=== PATIENT | female | born 1965 | race American Indian/Alaskan Native ===

== ENCOUNTER 2017-03-23 16:40 | Emergency (ER) | payer MEDICAID ==
[2017-03-23 16:43] VITALS: BMI 32.5
[2017-03-23 16:50] VITALS: RESP 18; TEMP 98.2
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
[2017-03-23 18:22] VITALS: BP 125/79; PULSE 67; O2SAT 98
--- NOTE | 2017-03-23 18:25 | US ---
PROCEDURE: Left lower extremity venous US HISTORY: Leg pain and swelling. Evaluate for DVT. PHYSICIAN(S): Homero Root MD. TECHNIQUE: Duplex sonography and color-flow Doppler with graded compression were used to evaluate the deep venous system of the left lower extremity. The exam is somewhat limited by body habitus and edema. FINDINGS: The visualized deep venous system of the left lower extremity is sonographically normal and compressible. Normal wave forms and augmentation are seen. There is no sonographic evidence for deep venous thrombosis in the visualized segments of the left lower extremity. IMPRESSION: 1. No sonographic evidence for deep venous thrombosis in the visualized segments of the left lower extremity.
== END 2017-03-23 18:47 | disposition home or self-care (01) ==
LOC: ED 16:40
DX: M54.42 Lumbago with sciatica, left side (principal); G89.29 Other chronic pain; I10 Essential (primary) hypertension; F17.210 Nicotine dependence, cigarettes, uncomplicated

== ENCOUNTER 2019-02-22 13:36 | Inpatient (IN) | payer MEDICAID ==
[2019-02-22 13:41] VITALS: BMI 35.2
[2019-02-22] MEDS ORDERED: Morphine 4 mg/ml ISec IVP STA (14:21)
[2019-02-22 14:26] LABS: BASO # 0.02 K/mm3 (0.0-2.0); BASO % 0.2 % (0.0-3.0); EOS # 0.3 (0.0-0.7); EOS % 2.8 % (1.5-5.0); HEMOGLOBIN 13.9 g/dL (12.0-16.0); LYMPH # 2.3 (1.2-3.4); LYMPH % 22.4 % (22.0-35.0); MEAN CELL VOLUME 87.6 fl (80.0-105.0); MEAN CORPUSCULAR HEMOGLOBIN 28.3 pg (25.0-35.0); MEAN CORPUSCULAR HGB CONC 32.3 g/dl (31.0-37.0); MONO % 10.3 % (1.0-6.0); PLATELET COUNT 115 10^3/uL (120.0-450.0); RBC 4.91 10^6/uL (3.5-6.1); RED CELL DISTRIBUTION WIDTH 13.6 % (11.5-14.5); WHITE BLOOD COUNT 10.1 10^3/uL (4.5-11.0)
--- NOTE | 2019-02-22 14:30 | ED PDOC ---
Arrival/HPI - General Chief Complaint: High Blood Pressure Historian: Patient - History of Present Illness Narrative History of Present Illness (Text): 02/22/19 14:25 Patient presents to the Emergency Department stating that she has been having weakness, "difficulty lifting my head up" over the past 2-3 days. She states that at approximately 1230 am this morning she was "feeling like I couldn't lift my head up" and checked her blood pressure at the time and noted that "it was over 200". She also states that AT 1230AM THIS MORNING she felt like she couldn't move or lift up her right leg or right arm. She also states that she had "a bump in my right nose" "for the past few days". She states that this has been hurting and she had noticed some swelling to her face yesterday. Reports some difficulty speaking "since last night". She states she took a clonidine earlier in the morning. Denies fever. Denies trauma. Denies neck pain. Reports chornic back pain. Past Medical History - Provider Review Nursing Documentation Reviewed: Yes - Infectious Disease Hx of Infectious Diseases: None - Cardiac Hx Hypertension: Yes - Pulmonary Hx Asthma: Yes - Neurological HX Cerebrovascular Accident: Yes (rt side weakness) - Psychiatric Hx Anxiety: Yes Hx Bipolar Disorder: Yes Hx Schizophrenia: Yes Hx Substance Use: Yes Other/Comment: insomnia - Surgical History Hx Cholecystectomy: Yes - Anesthesia Hx Anesthesia: Yes Hx Anesthesia Reactions: No Family/Social History - Physician Review Nursing Documentation Reviewed: Yes Family/Social History: Unknown Family HX Smoking Status: Heavy Smoker > 10 Cigarettes Daily Hx Alcohol Use: Yes Hx Substance Use: Yes Allergies/Home Meds Allergies/Adverse Reactions: Allergies No Known Allergies Allergy (Verified 03/23/17 16:43) Home Medications: Home Meds Medication Instructions Recorded Confirmed Alprazolam [Xanax] 2 mg PO DAILY 03/23/17 02/22/19 Clonidine HCl [Catapres] 0.3 mg PO DAILY 03/23/17 02/22/19 Review of Systems - Physician Review All systems were reviewed & negative as marked: Yes - Review of Systems Constitutional: Fatigue. absent: Weight Change, Fevers Eyes: Eye Pain, Other (pain with eye movements) ENT: Sinus Congestion, Other (right nasal pain) Respiratory: absent: SOB Cardiovascular: Palpitations. absent: Chest Pain Gastrointestinal: absent: Abdominal Pain, Nausea, Vomiting Genitourinary Female: absent: Dysuria, Frequency Musculoskeletal: Back Pain. absent: Neck Pain Skin: absent: Rash Neurological: Headache, Dizziness, Focal Weakness, Gait Changes, Speech Changes Endocrine: absent: Polyuria Hemo/Lymphatic: absent: Easy Bleeding Psychiatric: Anxiety. absent: Suicidal Ideation Physical Exam - Physical Exam Narrative Physical Exam (Text): 02/22/19 14:31 Head: Atraumatic. Normocephalic. Eyes: PERRL. EOMI. Conjunctivae are not pale. Visual acuity and coronado intact. No pain with eye movements, there is no proptosis. There is infraorbital edema. ENT: Mucous membranes are moist and intact. Oropharynx is clear and symmetric. No angioedema. There is inflammatory changes noted to right nares, no purulence. No bloody or purulent discharge. TMs clear. Neck: Supple. Full ROM. No JVD. No lymphadenopathy. No auscultated bruits. Cardiovascular: Regular rate. Regular rhythm. No murmur. Femoral pulses and distal foot pulses symmetric and intact. Pulmonary/Chest: No evidence of respiratory distress. Clear to auscultation bilaterally. No wheezing, rales or rhonchi. Abdominal: Soft and non-distended. There is epigastric tenderness. No rebound, guarding, or rigidity. No organomegaly. No pulsatile masses. Back: No CVA tenderness. Lower lumbar paraspinal tenderness. Extremities: No edema. No cyanosis. No clubbing. No calf tenderness. NO knee or hip pain with passive range of motion. No pain with straight leg testing. Skin: Skin is warm and dry. No petechiae. No purpura. Neurological: Alert, awake, and oriented to person, place, time, and situation. Facial asymmetry noted with soft tissue swelling noted to right maxillary, infraorbital region. Cranial nerves intact. Patient with normal finger to nose with left upper extremity. No pronator drift noted in left upper or lower ex tremity. Patient with weakness noted to RIGHT upper and lower extremity initially unable to lift off of bed on her own. Psychiatric: Anxious. 02/22/19 15:39 Vital Signs Reviewed: Yes Vital Signs Temp Pulse Resp BP Pulse Ox 02/22/19 13:36 97.9 F 65 18 248/143 H 97 Temperature: Afebrile Blood Pressure: Hypertensive Appearance: Positive for: Ill-Appearing Pain Distress: Moderate Mental Status: Positive for: Alert and Oriented X 3 Finger Stick Blood Glucose: 120 Medical Decision Making ED Course and Treatment: 02/22/19 14:32 Impression: Patient presents with right sided weakness in arm and leg she states she noted at 1230 am this morning. Also complains of right facial swelling, right "nose bump". Denies neck pain. Denies chest pain or shortness of breath. Initially denies abdominal pain. Reports lower back pain which she initially states is from "slipped disk in my back". States she has been unable to move right side very well since approximately midnight. She had informed nurse that she had difficulty moving left leg earlier in the day. Progress Notes: Patient on initial evaluation states she has had her symptoms for over 12 hours. She states she has history of hypertension and she takes clonidine. Denies headache and denies "worst headache of life". No fever. No meningeal signs. As patient has right sided weakness noted on arm and leg on initial exam, CODE STROKE called and initial exam and history reviewed with neurologist Dr. Marks. On re-exam upon return from CT, patient's blood pressure slightly improved but still elevated. She is complaining of sudden onset of severe upper abdominal pain and back pain. She did not have this on arrival. On re-exam she is tender on palpation of abdomen, no pulsations noted, distal pulses intact. She denies chest pain or pleuritic pain. IV Morphine given. On re-evaluation she is noted to be moving her right upper and lower extremity better than initial presentation. Ddx cva, neuro disease, dissection, gastris, biliary colic, hypertensive emergency. CT angio ordered. Patient is not a TPA candidate given history of uncontrolled hypertension as well as symptoms over [address] pending. Pain improved on re-evaluation. No facial abscess noted on initial CT. No acute bleed noted on initial CT. 02/22/19 16:56 Head/Neck CTA IMPRESSION: Normal CT Angiography of the Brain. Orbit CT IMPRESSION: No acute finding. Head CT IMPRESSION: Left greater than right cerebellar hypodense regions likely related to encephalomalacia. Additional regions of moderate nonspecific white matter changes. Chest X-Ray IMPRESSION: No focal consolidation. Requested ICU consultation given patient's elevated blood pressure and history of weakness noted SINCE YESTERDAY. I do appreciate weakness still on exam. There is also facial swelling I feel due to superficial infection although currently no pain with eye movements, afebrile, unlikely septic on this initial evaluation. Neck is supple with no meningeal signs. Blood pressure improved in ED after administration of blood pressure medication. Abdomen on re-exam is nontender patient requesting something to eat. Care turned over to ICU team, I discussed case with Dr. Marks, neurology who has evaluated patient in the ED. No respiratory distress noted in the ED. - Critical Care Critical Care Minutes: 30 minutes - RAD Interpretation Radiology Orders: 02/22/19 14:18 HEAD W/O (CODE STROKE) [CT] Stat CHEST PORTABLE [RAD] Stat 02/22/19 14:20 ORBITS/ FACIALS W/O CONTRAST [CT] Stat - Medication Orders Current Medication Orders: Sodium Chloride (Sodium Chloride 0.9%) 1,000 mls @ 100 mls/hr IV .Q10H JACKELYN Discontinued Medications Morphine Sulfate (Morphine) 4 mg IVP STAT STA Stop: 02/22/19 14:22 NIHSS Scale ([place]) Time Performed: 14:00 - How Severe is the Stoke Baseline Level of Consciousness: 0=Alert LOC to Questions: 0=Both comments correct LOC to commands: 0=Obeys both correctly Best Gaze: 0=Normal Visual: 0=No visual loss Facial: 0=Normal Motor Arm - Left: 0=No drift Motor Arm - Right: 2=Falls before 10 sec Motor Leg - Left: 0=No drift Motor Leg - Right: 3=No effort against gravity (falls immediately) Limb Ataxia: 0=Absent Sensory: 1=Mild to moderate loss Best Language: 0=No aphasia Dysarthia: 0=Normal articulation Extinction & Inattention (Neglect): 0=Normal, no object Score: 6 Risk Level: Mod Stroke Risk rTPA Inclusion/Exclusion - Refusal of Treatment Patient Refused Treatment: Yes - Exclusion Criteria for Altepase Current Severe Uncontrolled Hypertension: Yes - Scribe Statement The provider has reviewed the documentation as recorded by the [place] Provider Scribe Attestation: All medical record entries made by the Scribe were at my direction and personally dictated by me. I have reviewed the chart and agree that the record accurately reflects my personal performance of the history, physical exam, medical decision making, and the department course for this patient. I have also personally directed, reviewed, and agree with the discharge instructions and disposition. Disposition/Present on Arrival - Present on Arrival Any Indicators Present on Arrival: No History of DVT/PE: No History of Uncontrolled Diabetes: No Urinary Catheter: No History of Decub. Ulcer: No History Surgical Site Infection Following: None - Disposition Have Diagnosis and Disposition been Completed?: Yes Diagnosis: Malignant hypertension, Right facial swelling, Right sided weakness, Abdominal pain Disposition: HOSPITALIZED Disposition Time: 15:30 Patient Plan: Admission, ICU Patient Problems: Current Active Problems Problem Status Onset Abdominal pain Acute Cellulitis of sidewall of nose Acute DNS (deviated nasal septum) Acute Ischemic stroke Acute Malignant hypertension Acute Right facial swelling Acute Right sided weakness Acute Condition: CRITICAL
[2019-02-22 14:32] LABS: ALB/GLOB RATIO 1.1 (1.1-1.8); ALBUMIN 3.8 g/dL (3.0-4.8); ALT/SGPT 17 U/L (7-56); AST/SGOT 22 U/L (14-36); BLOOD UREA NITROGEN 10 mg/dL (7-21); CALCIUM 8.8 mg/dL (8.4-10.5); GFR NON-AFRICAN AMERICAN > 60; HDL CHOLESTEROL 51 mg/dL (29-60); INR 1.13; PARTIAL THROMBOPLASTIN TIME 32.2 Seconds (26.9-38.3); PROTHROMBIN TIME 12.5 SECONDS (9.4-12.5)
[2019-02-22 14:45] LABS: LDL CHOLESTEROL 106 mg/dL (0-129)
[2019-02-22 14:48] LABS: TROPONIN I < 0.01 ng/mL
[2019-02-22] MEDS: Sodium Chloride 0.9% 1,000 ML IV SCH (14:48)
--- NOTE | 2019-02-22 14:56 | CT ---
Date of service: 02/22/2019 PROCEDURE: CT HEAD WITHOUT CONTRAST. HISTORY: Code Stroke COMPARISON: None available. TECHNIQUE: Axial computed tomography images were obtained through the head/brain without intravenous contrast. Radiation dose: Total exam DLP = 957.91 mGy-cm. This CT exam was performed using one or more of the following dose reduction techniques: Automated exposure control, adjustment of the mA and/or kV according to patient size, and/or use of iterative reconstruction technique. FINDINGS: Streak artifact obscures evaluation of the skull base. HEMORRHAGE: No intracranial hemorrhage. BRAIN: Diffuse atrophy with prominence of the ventricles and sulci noted. No mass effect or edema. Intracranial atherosclerosis. Left greater than right cerebellar hypodense regions likely related to encephalomalacia. 11 mm hyperdense focus is noted within the medial cerebellum (series 4, image 11) of unclear etiology; malignant neoplasm must be excluded. Scattered periventricular and subcortical white matter hypodensities, which are nonspecific, but often seen with chronic microvascular ischemic disease. 1.6 x 1.1 cm hypodense fluid density structure noted within the anterior corpus, possibly cyst. Please note that MRI with diffusion imaging is more sensitive in the detection of acute ischemic event. VENTRICLES: No hydrocephalus. CALVARIUM: Unremarkable. PARANASAL SINUSES: Unremarkable as visualized. No significant inflammatory changes. MASTOID AIR CELLS: Unremarkable as visualized. No inflammatory changes. OTHER FINDINGS: Subtle inflammatory changes noted within the right nasal and adjacent soft tissues, nonspecific. No discrete fluid collection or drainable abscess evident. IMPRESSION: Left greater than right cerebellar hypodense regions likely related to encephalomalacia. Additional regions of moderate nonspecific white matter changes. 11 mm hyperdense focus is noted within the medial cerebellum of unclear etiology; malignant neoplasm must be excluded. MRI without and with IV contrast recommended for further evaluation. 1.6 x 1.1 cm hypodense fluid density structure noted within the anterior corpus, possibly cyst. Subtle inflammatory changes noted within the right nasal and adjacent soft tissues, nonspecific. No discrete fluid collection or drainable abscess evident. Findings discussed with Dr. Akbar on 02/22/19 at 241 pm.
[2019-02-22] MEDS ORDERED: Morphine 2 mg/ml ISec IVP STA (15:04)
[2019-02-22] MEDS ORDERED: Iohexol 350 MG/100 ML VIAL ONE (15:05)
[2019-02-22] MEDS ORDERED: Alum-Mag Hydrox-Simethicone Susp (30 mL) PO STA (15:14)
[2019-02-22] MEDS ORDERED: Labetalol 5mg/ml (4ml) IVP ONE (15:54)
--- NOTE | 2019-02-22 15:58 | RAD ---
HISTORY: Code Stroke COMPARISON: None available. TECHNIQUE: Chest, one view. FINDINGS: LUNGS: No focal consolidation. Please note that chest x-ray has limited sensitivity for the detection of pulmonary masses. PLEURA: No significant pleural effusion identified. No definite pneumothorax . CARDIOVASCULAR: Heart size appears within normal limits. Ectatic aorta. Faint atherosclerotic calcifications present. OSSEOUS STRUCTURES: No acute osseous abnormality identified. VISUALIZED UPPER ABDOMEN: Unremarkable. OTHER FINDINGS: None. IMPRESSION: No focal consolidation.
--- NOTE | 2019-02-22 16:03 | CP.PCM.CON ---
History of Present Illness - History of Present Illness History of Present Illness: Neurology Consultation Note: Consult requested by Dr. Akbar Mrs. Quiroz is a 53-year-old woman with a past medical history of HTN, who states that she had been having some difficulty with body weakness and trouble with lifting her head for the past several days. She began feeling right side weakness last night at around 12:30 AM. She presented to the ED today with right side weakness and there was some evidence of a facial droop, although there was concern for an abscess as well over the nose and facial region. She had a non-contrast CT scan of the head, which did not show any acute findings. Initial NIHSS was calculated at a 6. She was not a candidate for IV tPA due to being outside the 4.5 hour time window. CTA of the head/neck was ordered stat to evaluate for LVO. The patient then began complaining of severe chest pain that radiated to the back. This prompted further studies to evaluate for possible aortic dissection. She went for further imaging. I reviewed the CTA and did not see any major arterial occlusion intracranially and the carotids appeared patent past the bifurcation. According to the ED evaluation, the patient had improving symptoms, but her BP was 240's/120's range. When I saw the patient, she said that she has had a previous stroke and the right side weakness is chronic, but that it has gotten worse since yesterday. Review of Systems - Constitutional Constitutional: As Per HPI - EENT Eyes: absent: As Per HPI, Blind Spots, Blurred Vision, Change in Vision, Decreased Night Vision, Diplopia, Discharge, Dry Eye, Exophthalmos, Floaters, Irritation, Itchy Eyes, Loss of Peripheral Vision, Pain, Photophobia, Requires Corrective Lenses, Sees Flashes, Spots in Vision, Tunnel Vision, Other Visual Disturbances, Loss of Vision, Other Ears: absent: As Per HPI, Decreased Hearing, Ear Discharge, Ear Pain, Tinnitus, Abnormal Hearing, Disequilibrium, Dizziness, Other Nose/Mouth/Throat: As Per HPI - Cardiovascular Cardiovascular: absent: As Per HPI, Acrocyanosis, Chest Pain, Chest Pain at Rest, Chest Pain with Activity, Claudication, Diaphoresis, Dyspnea, Dyspnea on Exertion, Edema, Irregular Heart Rhythm, Pain Radiating to Arm/Neck/Jaw, Leg Edema, Leg Ulcers, Lightheadedness, Orthopnea, Palpitations, Paroxysmal Nocturnal Dyspnea, Pedal Edema, Radiating Pain, Rapid Heart Rate, Slow Heart Rate, Syncope, Other - Respiratory Respiratory: absent: As Per HPI, Cough, Dyspnea, Hemoptysis, Dyspnea on Exertion, Wheezing, Snoring, Stridor, Pain on Inspiration, Chest Congestion, Excessive Mucous Production, Change in Mucous Color, Pain with Coughing, Other - Musculoskeletal Musculoskeletal: absent: As Per HPI, Abnormal Gait, Arthralgias, Atrophy, Back Pain, Deformity, Joint Swelling, Limited Range of Motion, Loss of Height, Muscle Cramps, Muscle Weakness, Myalgias, Neck Pain, Numbness, Radiating Pain into Limb, Stiffness, Tingling, Other - Integumentary Integumentary: absent: As Per HPI, Acne, Alopecia, Bleeding Lesions, Change in Hair, Change in Nails, Change in Pigmentation, Changing Lesions, Dry Skin, Erythema, Furuncle, Hirsutism, Lesions, New Lesions, Non-Healing Lesions, Photosensitivity, Pruritus, Rash, Skin Pain, Skin Ulcer, Sores, Striae, Swelling, Unusual Bruising, Wounds, Jaundice, Other - Neurological Neurological: As Per HPI - Endocrine Endocrine: absent: As Per HPI, Change in Body Appearance, Change in Libido, Cold Intolorance, Deepening of Voice, Excessive Sweating, Fatigue, Flushing, Heat Intolorance, Increase in Ring/Shoe/Hat Size, Palpitations, Polydipsia, Polyphagia, Polyuria, Other - Hematologic/Lymphatic Hematologic: absent: As Per HPI, Easy Bleeding, Easy Bruising, Lymphadenopathy, Other Past Patient History - Infectious Disease Hx of Infectious Diseases: None - Past Social History Smoking Status: Heavy Smoker > 10 Cigarettes Daily - CARDIAC Hx Hypertension: Yes - PULMONARY Hx Asthma: Yes - NEUROLOGICAL HX Cerebrovascular Accident: Yes (rt side weakness) - PSYCHIATRIC Hx Anxiety: Yes Hx Bipolar Disorder: Yes Hx Schizophrenia: Yes Hx Substance Use: Yes Other/Comment: insomnia - SURGICAL HISTORY Hx Cholecystectomy: Yes - ANESTHESIA Hx Anesthesia: Yes Hx Anesthesia Reactions: No Meds Allergies/Adverse Reactions: Allergies Allergy/AdvReac Type Severity Reaction Status Date / Time No Known Allergies Allergy Verified 03/23/17 16:43 - Medications Medications: Current Medications Sodium Chloride (Sodium Chloride 0.9%) 1,000 mls @ 100 mls/hr IV .Q10H JACKELYN Last Admin: 02/22/19 14:48 Dose: 100 mls/hr Physical Exam - Constitutional Appears: No Acute Distress - Head Exam Head Exam: ATRAUMATIC, NORMAL INSPECTION, NORMOCEPHALIC - Eye Exam Eye Exam: EOMI, Normal appearance, PERRL Pupil Exam: NORMAL ACCOMODATION, PERRL - ENT Exam ENT Exam: Mucous Membranes Moist, Normal Exam - Neck Exam Neck exam: Positive for: Normal Inspection - Respiratory Exam Respiratory Exam: Clear to Auscultation Bilateral, NORMAL BREATHING PATTERN - Cardiovascular Exam Cardiovascular Exam: REGULAR RHYTHM, +S1, +S2 - GI/Abdominal Exam GI & Abdominal Exam: Normal Bowel Sounds, Soft. absent: Tenderness - Extremities Exam Extremities exam: Positive for: normal inspection - Back Exam Back exam: NORMAL INSPECTION - Neurological Exam Neurological exam: Abnormal Gait, Alert, CN II-XII Intact, Oriented x3, Reflexes Normal Additional comments: Right side hemiplegia and hemianesthesia. No facial droop noted. Speech is fluent, not dysarthric. Visual coronado are intact. - Psychiatric Exam Psychiatric exam: Normal Affect, Normal Mood - Skin Skin Exam: Dry, Intact, Normal Color, Warm Results - Vital Signs Recent Vital Signs: Last Vital Signs Temp 97.9 F 02/22/19 13:36 Pulse 87 02/22/19 15:01 Resp 20 02/22/19 15:01 BP 214/92 H 02/22/19 15:01 Pulse Ox 94 L 02/22/19 15:01 - Labs Result Diagrams: 02/22/19 14:00 02/22/19 14:00 Labs: Laboratory Results - last 24 hr 02/22/19 02/22/19 02/22/19 14:00 14:00 14:00 WBC 10.1 RBC 4.91 Hgb 13.9 Hct 43.0 MCV 87.6 MCH 28.3 MCHC 32.3 RDW 13.6 Plt Count 115 L Neut % (Auto) 64.3 Lymph % (Auto) 22.4 [place] % (Auto) 10.3 H Eos % (Auto) 2.8 Baso % (Auto) 0.2 Lymph # (Auto) 2.3 [place] # (Auto) 1.0 H Eos # (Auto) 0.3 Baso # (Auto) 0.02 Absolute Neuts (auto) 6.52 H PT 12.5 INR 1.13 APTT 32.2 Sodium 139 Potassium 3.7 Chloride 103 Carbon Dioxide 32 Anion Gap 8 L BUN 10 Creatinine 0.9 Est GFR ( Amer) > 60 Est GFR (Non-Af Amer) > 60 Random Glucose 96 Calcium 8.8 Total Bilirubin 0.8 AST 22 ALT 17 Alkaline Phosphatase 64 Lactate Dehydrogenase 490 Total Creatine Kinase 110 Troponin I < 0.01 Total Protein 7.4 Albumin 3.8 Globulin 3.6 Albumin/Globulin Ratio 1.1 Triglycerides 57 Cholesterol 189 LDL Cholesterol Direct 106 HDL Cholesterol 51 BBK History Checked 02/22/19 15:00 WBC RBC Hgb Hct MCV MCH MCHC RDW Plt Count Neut % (Auto) Lymph % (Auto) [place] % (Auto) Eos % (Auto) Baso % (Auto) Lymph # (Auto) [place] # (Auto) Eos # (Auto) Baso # (Auto) Absolute Neuts (auto) PT INR APTT Sodium Potassium Chloride Carbon Dioxide Anion Gap BUN Creatinine Est GFR ( Amer) Est GFR (Non-Af Amer) Random Glucose Calcium Total Bilirubin AST ALT Alkaline Phosphatase Lactate Dehydrogenase Total Creatine Kinase Troponin I Total Protein Albumin Globulin Albumin/Globulin Ratio Triglycerides Cholesterol LDL Cholesterol Direct HDL Cholesterol BBK History Checked No verified bt Assessment & Plan (1) Ischemic stroke Assessment and Plan: According to the patient, she had a previous stroke that left her with right side weakness. The CT scan does not demonstrate any area of encephalomalacia corresponding to a previous stroke that would result in right side weakness. However, a new infarct is possible. It is also possible that she has hypertensive encephalopathy considering the initial BP of 258/120 mm hg. I recommend the followin. Telemetry (consider ICU for BP management if needed) 2. MRI brain without contrast 3. Echocardiogram 4. Check HbA1c, Lipid panel, B12, folate, TSH, vitamin D levels 5. Give aspirin 81 mg daily 6. Give lipitor 40 mg daily 7. Fluids with NS at 100 mL/hr 8. Treat BP that is higher than 220/110 mm hg 9. PT/OT eval and treatment 10. Case management consult Thank you for this consultation. Status: Acute NIHSS Stroke Scale - Date/Time Evaluation Performed Date Performed: 02/22/19 Time Performed: 16:00 - How Severe is the Stoke Level of Consciousness: 0=Alert LOC to Questions: 0=Both comments correct LOC to commands: 0=Obeys both correctly Best Gaze: 0=Normal Visual: 0=No visual loss Facial: 0=Normal Motor Arm - Left: 0=No drift Motor Arm - Right: 4=No movement Motor Leg - Left: 0=No drift Motor Leg - Right: 4=No movement Limb Ataxia: 0=Absent Sensory: 1=Mild to moderate loss Best Language: 0=No aphasia Dysarthia: 0=Normal articulation Extinction & Inattention (Neglect): 0=Normal, no object Score: 9
--- NOTE | 2019-02-22 16:03 | CT ---
Date of service: 02/22/2019 PROCEDURE: CT MAXILLOFACIAL BONES WITHOUT CONTRAST HISTORY: right facial swelling COMPARISON: None available. TECHNIQUE: Contiguous axial CT images of the maxillofacial bones were obtained. Coronal and sagittal reformats were generated. Radiation dose: Total exam DLP = 754.8 mGy-cm. This CT exam was performed using one or more of the following dose reduction techniques: Automated exposure control, adjustment of the mA and/or kV according to patient size, and/or use of iterative reconstruction technique. FINDINGS: NASAL BONES: Unremarkable. ORBITS: Unremarkable. PARANASAL SINUSES/ MASTOIDS: Clear. MAXILLA: Unremarkable. MANDIBLE/ TEMPOROMANDIBULAR JOINTS: Unremarkable. SKULL BASE: Unremarkable. TEMPORAL BONES: Middle ears and mastoid grossly unremarkable. OTHER FINDINGS: None. IMPRESSION: No acute finding
--- NOTE | 2019-02-22 16:41 | CT ---
Date of service: 02/22/2019 PROCEDURE: CT Angiography of the neck with contrast HISTORY: right sided weakness COMPARISON: None. TECHNIQUE: Contiguous axial images of the neck were obtained from the level of the skull-base to the superior mediastinum in the arteriographic phase of enhancement. Coronal and sagittal reformats or also generated. IV contrast dose: 150 cc of Omni 350 Radiation dose: Total exam DLP = 1962.7 mGy-cm. This CT exam was performed using one or more of the following dose reduction techniques: Automated exposure control, adjustment of the mA and/or kV according to patient size, and/or use of iterative reconstruction technique. FINDINGS: RIGHT CAROTID ARTERIES: Common Carotid Artery: Normal. Carotid Bifurcation: Normal. Internal Carotid Artery:Calcified plaque with no stenosis External Carotid Artery (proximal branches): Normal. LEFT CAROTID ARTERIES: Common Carotid Artery: Normal. Carotid Bifurcation: Normal. Internal Carotid Artery:Calcified plaque with no stenosis External Carotid Artery (proximal branches): Normal. VERTEBRAL ARTERIES: Right Vertebral Artery: Normal. Left Vertebral Artery: Normal. OTHER FINDINGS: no aortic atherosclerotic calcification or mural plaque present. IMPRESSION: Normal CT Angiography of the neck. CT Angiography of the Brain. HISTORY: right sided weakness COMPARISON: None available. TECHNIQUE: CT angiography of the intracranial arteries was performed. Coronal and sagittal maximum intensity projection reformated images were generated. Radiation dose: Total exam DLP = 1962.7 mGy-cm. This CT exam was performed using one or more of the following dose reduction techniques: Automated exposure control, adjustment of the mA and/or kV according to patient size, and/or use of iterative reconstruction technique. FINDINGS: INTERNAL CEREBRAL ARTERIES: Unremarkable. The skull base, petrous, cavernous and supraclinoid segments are bilaterally widely patent. ANTERIOR CEREBRAL ARTERIES: Unremarkable. A1 and A2 segments are widely patent. Smaller distal branches unremarkable, as visualized. MIDDLE CEREBRAL ARTERIES: Unremarkable. M1 and M2 segments are widely patent. Perisylvian branches grossly symmetric. POSTERIOR CIRCULATION: Basilar Artery: Unremarkable. Distal Vertebral Arteries: Unremarkable. Posterior Cerebral Arteries: Unremarkable. Posterior Inferior Cerebellar Arteries: Unremarkable. ANEURYSM/ VASCULAR MALFORMATIONS: None. OTHER FINDINGS: None. IMPRESSION: Unremarkable CT Angiography of the Brain. CT Angiography Chest, Abdomen and Pelvis with intravenous contrast HISTORY: right sided weakness COMPARISON: None. TECHNIQUE: Contiguous axial images of the chest, abdomen and pelvis were obtained in the phase of aortic enhancement. Coronal and sagittal reformats were generated. IV dose administered: Total injection of 150 cc of Omni 350 Radiation dose: Total exam DLP = 1962.7 mGy-cm. This CT exam was performed using one or more of the following dose reduction techniques: Automated exposure control, adjustment of the mA and/or kV according to patient size, and/or use of iterative reconstruction technique. FINDINGS: CT ANGIOGRAPHY OF THE CHEST WITH & WITHOUT CONTRAST: AORTA (CHEST AND ABDOMEN): The thoracic and abdominal aorta are unremarkable, without aneurysm, dissection or rupture. The celiac axis, superior mesenteric artery, inferior mesenteric artery and the renal arteries are widely patent. The pelvic arteries are unremarkable. LUNGS: Clear. No nodule, mass or consolidation. MEDIASTINUM: Unremarkable. Normal caliber aorta and pulmonary arterial trunk. No aortic dissection. Normal size heart. LYMPH NODES: Unremarkable. PLEURA: Unremarkable. No pneumothorax. No pleural fluid. BONES: Unremarkable. OTHER FINDINGS: None. CT ANGIOGRAPHY OF THE ABDOMEN AND PELVIS WITH CONTRAST: LIVER: Unremarkable. No gross lesion or ductal dilatation. GALLBLADDER AND BILE DUCTS: Gallbladder removed. Common duct normal in caliber PANCREAS: Unremarkable. No gross lesion or ductal dilatation. SPLEEN: Unremarkable. ADRENALS: Unremarkable. No mass. KIDNEYS AND URETERS: Unremarkable. No hydronephrosis. No solid mass. VASCULATURE: Unremarkable. No aortic aneurysm. No aortic atherosclerotic calcification or mural plaque present. STOMACH AND BOWEL: Unremarkable. No obstruction. No gross mural thickening. APPENDIX: Normal appendix. PERITONEUM: Unremarkable. No free fluid. No free air. LYMPH NODES: Unremarkable. No enlarged lymph nodes. BLADDER: Unremarkable. REPRODUCTIVE: Unremarkable. BONES: No acute fracture. OTHER FINDINGS: Findings were discussed with Dr. Slater at 4:30 p.m. IMPRESSION: No evidence of aneurysm or dissection
[2019-02-22 17:05] LABS: PH,URINE 6.5 (4.7-8.0); URINE APPEARANCE CLEAR (CLEAR); URINE BILIRUBIN NEGATIVE (NEGATIVE); URINE BLOOD NEGATIVE (NEGATIVE); URINE COLOR YELLOW (YELLOW); URINE GLUCOSE (UA) NEGATIVE (NEGATIVE); URINE LEUKOCYTE ESTERASE NEGATIVE Leu/uL (NEGATIVE); URINE PROTEIN NEGATIVE mg/dL (<30 mg/dL)
--- NOTE | 2019-02-22 17:21 | CP.PCM.CON ---
History of Present Illness - History of Present Illness History of Present Illness: MICU CONSULT NOTE Patient is 53yo female with PMHx of CVA with residual R weakness, HTN, on Clonidine, smoker, chronic back pain, presented from home with worsening R sided weakness, and inability to stand on both feet. On presentation, SBP ranging 220- 230s, given Labetolol 20mg IV x 1, with improvement in SBP 170s. Pt seen by neurology, deemed not candidate for tPA as out of the window period. Pt currently denies, fever, chills, cough, CP, palpitations, BROWNING, dizziness. No other constitutional symptoms. Pt head CTH, Head Neck CTA, results noted Seen be neurology, consult noted PMHX as above PSHx as above Meds as per EMR FHx NH Social smokes 1pk per day, denies drug use, etoh Allergies NKDA ROS as above Review of Systems - Review of Systems Review of Systems: as above Past Patient History - Infectious Disease Hx of Infectious Diseases: None - Past Social History Smoking Status: Heavy Smoker > 10 Cigarettes Daily - CARDIAC Hx Hypertension: Yes - PULMONARY Hx Asthma: Yes - NEUROLOGICAL HX Cerebrovascular Accident: Yes (rt side weakness) - PSYCHIATRIC Hx Anxiety: Yes Hx Bipolar Disorder: Yes Hx Schizophrenia: Yes Hx Substance Use: Yes Other/Comment: insomnia - SURGICAL HISTORY Hx Cholecystectomy: Yes - ANESTHESIA Hx Anesthesia: Yes Hx Anesthesia Reactions: No Meds Allergies/Adverse Reactions: Allergies Allergy/AdvReac Type Severity Reaction Status Date / Time No Known Allergies Allergy Verified 03/23/17 16:43 - Medications Medications: Current Medications Aspirin (Aspirin Chewable) 81 mg PO DAILY JACKELYN Atorvastatin Calcium (Lipitor) 40 mg PO HS JACKELYN Sodium Chloride (Sodium Chloride 0.9%) 1,000 mls @ 100 mls/hr IV .Q10H JACKELYN Last Admin: 02/22/19 14:48 Dose: 100 mls/hr Nicardipine HCl (Cardene Iv Premix) 20 mg in 200 mls @ 50 mls/hr IV .Q4H PRN; Protocol PRN Reason: TITRATE PER MD ORDER Physical Exam - Constitutional Appears: Non-toxic, No Acute Distress - Head Exam Head Exam: NORMAL INSPECTION - Eye Exam Eye Exam: Normal appearance - ENT Exam ENT Exam: Mucous Membranes Moist - Respiratory Exam Respiratory Exam: Clear to Auscultation Bilateral, NORMAL BREATHING PATTERN - Cardiovascular Exam Cardiovascular Exam: REGULAR RHYTHM, +S1, +S2 - Extremities Exam Extremities exam: Positive for: normal inspection - Neurological Exam Neurological exam: Alert, Oriented x3 Additional comments: LUE/LLL 5/5 RUE/RLE 1/5 Sensory decreased RUE/RLE Results - Vital Signs Recent Vital Signs: Last Vital Signs Temp 97.9 F 02/22/19 13:36 Pulse 64 02/22/19 16:33 Resp 18 02/22/19 16:33 BP 171/101 H 02/22/19 16:33 Pulse Ox 98 02/22/19 16:33 - Labs Result Diagrams: 02/22/19 14:00 02/22/19 14:00 Labs: Laboratory Results - last 24 hr 02/22/19 02/22/19 02/22/19 14:00 14:00 14:00 WBC 10.1 RBC 4.91 Hgb 13.9 Hct 43.0 MCV 87.6 MCH 28.3 MCHC 32.3 RDW 13.6 Plt Count 115 L Neut % (Auto) 64.3 Lymph % (Auto) 22.4 Fisher % (Auto) 10.3 H Eos % (Auto) 2.8 Baso % (Auto) 0.2 Lymph # (Auto) 2.3 Fisher # (Auto) 1.0 H Eos # (Auto) 0.3 Baso # (Auto) 0.02 Absolute Neuts (auto) 6.52 H PT 12.5 INR 1.13 APTT 32.2 Sodium 139 Potassium 3.7 Chloride 103 Carbon Dioxide 32 Anion Gap 8 L BUN 10 Creatinine 0.9 Est GFR ( Amer) > 60 Est GFR (Non-Af Amer) > 60 Random Glucose 96 Calcium 8.8 Total Bilirubin 0.8 AST 22 ALT 17 Alkaline Phosphatase 64 Lactate Dehydrogenase 490 Total Creatine Kinase 110 Troponin I < 0.01 Total Protein 7.4 Albumin 3.8 Globulin 3.6 Albumin/Globulin Ratio 1.1 Triglycerides 57 Cholesterol 189 LDL Cholesterol Direct 106 HDL Cholesterol 51 Urine Color Urine Appearance Urine pH Ur Specific [place] Urine Protein Urine Glucose (UA) Urine Ketones Urine Blood Urine Nitrate Urine Bilirubin Urine Urobilinogen Ur Leukocyte Esterase Blood Type Blood Type Confirm Antibody Screen BBK History Checked 02/22/19 02/22/19 02/22/19 15:00 15:00 16:57 WBC RBC Hgb Hct MCV MCH MCHC RDW Plt Count Neut % (Auto) Lymph % (Auto) Fisher % (Auto) Eos % (Auto) Baso % (Auto) Lymph # (Auto) Fisher # (Auto) Eos # (Auto) Baso # (Auto) Absolute Neuts (auto) PT INR APTT Sodium Potassium Chloride Carbon Dioxide Anion Gap BUN Creatinine Est GFR ( Amer) Est GFR (Non-Af Amer) Random Glucose Calcium Total Bilirubin AST ALT Alkaline Phosphatase Lactate Dehydrogenase Total Creatine Kinase Troponin I Total Protein Albumin Globulin Albumin/Globulin Ratio Triglycerides Cholesterol LDL Cholesterol Direct HDL Cholesterol Urine Color Yellow Urine Appearance Clear Urine pH 6.5 Ur Specific [place] 1.010 Urine Protein Negative Urine Glucose (UA) Negative Urine Ketones Negative Urine Blood Negative Urine Nitrate Negative Urine Bilirubin Negative Urine Urobilinogen 1.0 H Ur Leukocyte Esterase Negative Blood Type B POSITIVE Blood Type Confirm B POSITIVE Antibody Screen Negative BBK History Checked No verified bt Assessment & Plan - Assessment and Plan (Free Text) Assessment: 53yo female with malignant HTN, worsening R sided weakness. Malignant HTN HTN Urgency rule out CVA Hx of CVA Hx smoking Recommend - supp o2 as needed, duonebs PRN - NO ID issues - BP control, treat if SBP >220 - Cardene as needed - MRI brain without contrast - ECHO - Check hgbA1C, Lipid Panel, TSH, Folic acid - ASA 81mg daily - Statin - PT eval - speech swallow eval - Nicotine pacth - DVT ppx, HSQ - Monitor in MICU Critical care time 35 minutes
--- NOTE | 2019-02-22 18:39 | CP.PCM.HP ---
<GucciFernanda - Last Filed: 02/22/19 18:45> History of Present Illness - History of Present Illness History of Present Illness: Fernanda Duckworth, PGY-1, Internal Medicine History and Physical for Dr. Quiñones 53 year old female with past medical history of hypertension and 3 prior strokes presents with body weakness and trouble getting out of bed for one day. She reports 2 to 3 days ago, she noticed mass in right nostril and tried to treat it with benadryl and an antiseptic which did not help. Subsequently 2 days ago, she reported headache of the whole head and change in vision which had no exacerbating or remitting factors. She checked her blood pressure last night, which was found to have systolic blood pressure in the 270s. She takes clonidine 0.3 mg BID but reports to be noncompliant with medication. She took clonidine last night for blood pressure which did not improve her blood pressure. This morning, she noticed that her face was swollen and she had complete right sided weakness of upper and lower extremity with left sided facial weakness. When she talked to her sister that morning, her sister mentioned that she had slurred speech. She also reported right upper and lower extremity numbness. She has had prior strokes in the past, and she reports her worst one was in 2011 where she had bilateral lower extremity weakness and subsequently went to [facility] at that time. She also reports having stroke like symptoms this November and going to [facility] for evaluation and treatment and was supposed to go to rehabilitation but decided to go home. 12-point ROS was unremarkable except for what was mentioned above. PMH: hypertension, 3 prior strokes, spondylothesis, anxiety, sleep disorder, hyperlipidemia, questionable diabetes mellitus, opiod abuse PSH: cholecystectomy FMHx: Mother and Sister have history of strokes. Father from COPD SHx: smoked 1 PPD for 20 years, occassional alcohol use, denies recreational drug use Allergies: CANDA PMD: Dr. Ricci Insurance: [employer] [facility]: [facility] in [place] [facility] Home medications: percocet 5/325, hydrochlorothiazide 25 mg daily, amlodipine 10 mg dialy, clonidine 0.2 mg BID, xanax 1 mg BID. Confirmed with pharmacy. Patient reports noncompliance. Present on Admission - Present on Admission Any Indicators Present on Admission: No Review of Systems - Review of Systems Review of Systems: except as mentioned in HPI Past Patient History - Infectious Disease Hx of Infectious Diseases: None - Past Social History Smoking Status: Heavy Smoker > 10 Cigarettes Daily - CARDIAC Hx Hypertension: Yes - PULMONARY Hx Asthma: Yes - NEUROLOGICAL HX Cerebrovascular Accident: Yes (rt side weakness) - PSYCHIATRIC Hx Anxiety: Yes Hx Bipolar Disorder: Yes Hx Schizophrenia: Yes Hx Substance Use: Yes Other/Comment: insomnia - SURGICAL HISTORY Hx Cholecystectomy: Yes - ANESTHESIA Hx Anesthesia: Yes Hx Anesthesia Reactions: No Meds Allergies/Adverse Reactions: Allergies Allergy/AdvReac Type Severity Reaction Status Date / Time No Known Allergies Allergy Verified 03/23/17 16:43 Physical Exam - Constitutional Appears: Well, Non-toxic, No Acute Distress, Older Than Stated Age - Head Exam Head Exam: ATRAUMATIC, NORMAL INSPECTION, NORMOCEPHALIC - Eye Exam Eye Exam: PERRL. absent: EOMI (unable to fully follow with upward gaze) Pupil Exam: NORMAL ACCOMODATION - ENT Exam Additional comments: swelling inside right nare - Neck Exam Neck exam: Positive for: Normal Inspection. Negative for: Full Rom (unable to move right trapezius) - Respiratory Exam Respiratory Exam: Clear to Auscultation Bilateral, NORMAL BREATHING PATTERN - Cardiovascular Exam Cardiovascular Exam: REGULAR RHYTHM, RRR, +S1, +S2. absent: Tachycardia, Clicks, Diastolic murmur, Gallop, JVD - GI/Abdominal Exam GI & Abdominal Exam: Normal Bowel Sounds, Soft. absent: Distended, Firm, Guarding, Tenderness - Extremities Exam Extremities exam: Positive for: normal inspection. Negative for: pedal edema Additional comments: +0/5 of right upper and lower extremity, +5/5 of left upper and lower extremity - Back Exam Back exam: paraspinal tenderness - Neurological Exam Neurological exam: Alert, Oriented x3 Additional comments: complete numbness of right upper and lower extremity Patient has slight facial droop on left side. All other cranial nerves are intact - Psychiatric Exam Psychiatric exam: Normal Affect, Normal Mood - Skin Skin Exam: Dry, Intact, Normal Color Results - Vital Signs Recent Vital Signs: Last Vital Signs Temp 98 F 02/22/19 17:43 Pulse 62 02/22/19 17:43 Resp 20 02/22/19 17:43 BP 169/90 H 02/22/19 17:43 Pulse Ox 96 02/22/19 17:43 - Labs Result Diagrams: 02/22/19 14:00 02/22/19 14:00 Labs: Laboratory Results - last 24 hr 02/22/19 02/22/19 02/22/19 14:00 14:00 14:00 WBC 10.1 RBC 4.91 Hgb 13.9 Hct 43.0 MCV 87.6 MCH 28.3 MCHC 32.3 RDW 13.6 Plt Count 115 L Neut % (Auto) 64.3 Lymph % (Auto) 22.4 Dixie % (Auto) 10.3 H Eos % (Auto) 2.8 Baso % (Auto) 0.2 Lymph # (Auto) 2.3 Dixie # (Auto) 1.0 H Eos # (Auto) 0.3 Baso # (Auto) 0.02 Absolute Neuts (auto) 6.52 H PT 12.5 INR 1.13 APTT 32.2 Sodium 139 Potassium 3.7 Chloride 103 Carbon Dioxide 32 Anion Gap 8 L BUN 10 Creatinine 0.9 Est GFR ( Amer) > 60 Est GFR (Non-Af Amer) > 60 POC Glucose (mg/dL) Random Glucose 96 Calcium 8.8 Total Bilirubin 0.8 AST 22 ALT 17 Alkaline Phosphatase 64 Lactate Dehydrogenase 490 Total Creatine Kinase 110 Troponin I < 0.01 Total Protein 7.4 Albumin 3.8 Globulin 3.6 Albumin/Globulin Ratio 1.1 Triglycerides 57 Cholesterol 189 LDL Cholesterol Direct 106 HDL Cholesterol 51 Urine Color Urine Appearance Urine pH Ur Specific [place] Urine Protein Urine Glucose (UA) Urine Ketones Urine Blood Urine Nitrate Urine Bilirubin Urine Urobilinogen Ur Leukocyte Esterase Blood Type Blood Type Confirm Antibody Screen BBK History Checked 02/22/19 02/22/19 02/22/19 15:00 15:00 16:49 WBC RBC Hgb Hct MCV MCH MCHC RDW Plt Count Neut % (Auto) Lymph % (Auto) Dixie % (Auto) Eos % (Auto) Baso % (Auto) Lymph # (Auto) Dixie # (Auto) Eos # (Auto) Baso # (Auto) Absolute Neuts (auto) PT INR APTT Sodium Potassium Chloride Carbon Dioxide Anion Gap BUN Creatinine Est GFR ( Amer) Est GFR (Non-Af Amer) POC Glucose (mg/dL) 136 H Random Glucose Calcium Total Bilirubin AST ALT Alkaline Phosphatase Lactate Dehydrogenase Total Creatine Kinase Troponin I Total Protein Albumin Globulin Albumin/Globulin Ratio Triglycerides Cholesterol LDL Cholesterol Direct HDL Cholesterol Urine Color Urine Appearance Urine pH Ur Specific [place] Urine Protein Urine Glucose (UA) Urine Ketones Urine Blood Urine Nitrate Urine Bilirubin Urine Urobilinogen Ur Leukocyte Esterase Blood Type B POSITIVE Blood Type Confirm B POSITIVE Antibody Screen Negative BBK History Checked No verified bt 02/22/19 16:57 WBC RBC Hgb Hct MCV MCH MCHC RDW Plt Count Neut % (Auto) Lymph % (Auto) Dixie % (Auto) Eos % (Auto) Baso % (Auto) Lymph # (Auto) Dixie # (Auto) Eos # (Auto) Baso # (Auto) Absolute Neuts (auto) PT INR APTT Sodium Potassium Chloride Carbon Dioxide Anion Gap BUN Creatinine Est GFR ( Amer) Est GFR (Non-Af Amer) POC Glucose (mg/dL) Random Glucose Calcium Total Bilirubin AST ALT Alkaline Phosphatase Lactate Dehydrogenase Total Creatine Kinase Troponin I Total Protein Albumin Globulin Albumin/Globulin Ratio Triglycerides Cholesterol LDL Cholesterol Direct HDL Cholesterol Urine Color Yellow Urine Appearance Clear Urine pH 6.5 Ur Specific [place] 1.010 Urine Protein Negative Urine Glucose (UA) Negative Urine Ketones Negative Urine Blood Negative Urine Nitrate Negative Urine Bilirubin Negative Urine Urobilinogen 1.0 H Ur Leukocyte Esterase Negative Blood Type Blood Type Confirm Antibody Screen BBK History Checked Assessment & Plan - Assessment and Plan (Free Text) Assessment: 53 year old female with past medical history of hypertension and 3 prior strokes presents with body weakness and trouble getting out of bed for one day. Patient has complete right sided weakness. Patient was admitted for hypertensive emergency with rule out of stroke. Plan: Rule out CVA -Head CT 02/22: left greater than right cerebellar hypodense regions likely related to encephalomalacia. 11 mm hyperdense focus noted in medial cerebellum of unclear etiology; cannot exclude malignancy. 1.6x1.1 cm hypodense fluid density structure noted in the anterior corpus, possibly cyst. Subtle infla mmatory changes noted in the right nasal and adjacent soft tissues, nonspecific. No discrete fluid collection or drainable abscess -Head and Neck CTA: no evidence of aneurysm or dissection -Orbital CT unremarkable -EKG: shows NSR -Troponinx1: unremarkable -Lipid panel unremarkable -Will follow up MRI with contrast for further evaluation of stroke -Will follow up echocardiogram for evaluation of ASD or PFO as etiology of stroke -Ordered hemoglobin A1c, B12, folate, TSH, Vitamin D -Started aspirin 81 mg daily, lipitor 40 mg daily, and NS at 100cc/hr -Physical therapy and occupation therapy consulted -Speech and swallow evaluation ordered -Neurocheck Q1 -Fall precaution, seizure precaution -Dr. Marks, Neurology, consulted for further evaluation Hypertensive emergency -Blood pressure: 248/143 -Trending down at this time with last BP of 169/90 -Patient was given one dose of labetalol in the ED without major improvement -Started cardene drip at 5 cc/hr -CVA symptoms possibly related to hypertensive emergency Right nasal mass possibly secondary to abscess -Head CT 02/22: Subtle inflammatory changes noted in the right nasal and adjacent soft tissues, nonspecific. No discrete fluid collection or drainable abscess -Started unasyn 1.5 mg Q6 for possible infection -Started nasal spray -Patient currently does not fulfill SIRS criteria. She is afebrile and has no leukocytosis. -ENT, Dr. Rogers, consulted for recommendations. Spondylothesis -Will start tylenol and ibuprofen PRN for pain Questionable Diabetes Mellitus -Will follow up HgbA1c -Start low SSI -Accucheck ACHS Tobacco abuse -Nicotine patch ordered -Counseled patient regarding importance of tobacco abuse GI prophylaxis: protonix DVT prophylaxis: lovenox Patient plan discussed with Dr. Quiñones - Date & Time Date: 02/22/19 Time: 18:52 <Amber Quiñones - Last Filed: 02/24/19 12:36> Results - Vital Signs Recent Vital Signs: Last Vital Signs Temp 97.8 F 02/24/19 08:18 Pulse 76 02/24/19 08:19 Resp 32 H 02/23/19 18:01 BP 137/91 H 02/24/19 10:00 Pulse Ox 96 02/23/19 08:30 - Labs Result Diagrams: 02/24/19 05:00 02/24/19 05:00 Labs: Laboratory Results - last 24 hr 02/23/19 02/23/19 02/24/19 15:15 15:15 05:00 WBC 7.7 D 10.4 D RBC 4.96 4.77 Hgb 14.1 13.5 Hct 43.8 41.2 MCV 88.3 86.4 MCH 28.4 28.3 MCHC 32.2 32.8 RDW 13.5 13.3 Plt Count 118 L 128 Neut % (Auto) 86.7 H Lymph % (Auto) 10.2 L Dixie % (Auto) 3.0 Eos % (Auto) 0.0 L Baso % (Auto) 0.1 Lymph # (Auto) 1.1 L Dixie # (Auto) 0.3 Eos # (Auto) 0.0 Baso # (Auto) 0.01 Absolute Neuts (auto) 9.02 H Sodium 135 Potassium 4.0 Chloride 102 Carbon Dioxide 26 Anion Gap 11 BUN 12 Creatinine 0.7 Est GFR ( Amer) > 60 Est GFR (Non-Af Amer) > 60 Random Glucose 167 H Calcium 8.6 Total Bilirubin 1.1 AST 539 H D ALT 673 H Alkaline Phosphatase 176 H D Total Protein 7.4 Albumin 3.7 Globulin 3.7 Albumin/Globulin Ratio 1.0 L 02/24/19 05:00 WBC RBC Hgb Hct MCV MCH MCHC RDW Plt Count Neut % (Auto) Lymph % (Auto) Dixie % (Auto) Eos % (Auto) Baso % (Auto) Lymph # (Auto) Dixie # (Auto) Eos # (Auto) Baso # (Auto) Absolute Neuts (auto) Sodium 138 Potassium 4.0 Chloride 101 Carbon Dioxide 32 Anion Gap 9 L BUN 14 Creatinine 0.8 Est GFR ( Amer) > 60 Est GFR (Non-Af Amer) > 60 Random Glucose 135 H Calcium 8.8 Total Bilirubin 0.5 AST 211 H D ALT 487 H Alkaline Phosphatase 152 H Total Protein 6.9 Albumin 3.5 Globulin 3.4 Albumin/Globulin Ratio 1.0 L Attending/Attestation - Attestation I have personally seen and examined this patient.: Yes I have fully participated in the care of the patient.: Yes I have reviewed all pertinent clinical information: Yes Notes (Text): 02/24/19 12:29 Attending note; Patient seen and examined with resident in ER. Patient is alert and awake. Oriented to place and time. Patient is a poor historian. This is patient's [facility] visit to [facility]. History is unreliable . Patient is complaining of right-sided weakness. Patient passed swallow evaluation in the ER. Patient with a past history of stroke with right-sided weakness. Patient was recently admitted in [facility] for stroke in November 2018 and she went home after refusing to go to retirement. Patient is a 53 year old female with past medical history of hypertension and ?? 3 prior strokes presents with body weakness and trouble getting out of bed for one day. Patient told the ER while she was walking outside she was feeling weakness on the right arm and leg and had to use the left hand to dial 911 .history is unreliable she reports 2 to 3 days ago, she noticed mass in right nostril and tried to treat it with benadryl and an antiseptic which did not help. 1. Right-sided weakness; patient with a previous history of stroke with some right-sided weakness. CT head is negative. CTA is negative for acute findings. Neurology evaluation requested. Started on aspirin. Continue Lipitor. 2. Uncontrolled hypertension/hypertension urgency. patient is started on ni cardipine drip. Monitor closely in ICU. We will start p.o. medication Norvasc, hydrochlorothiazide and clonidine. 3. Chronic opiate dependency; patient is requesting pain medication. 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 4. Anxiety; questionable exacerbation of the symptoms due to psychiatric disorder. Monitor closely . Continue IV Ativan as needed. 5. Right-sided facial swelling; patient has significant swelling in the right nostril . Started on IV Unasyn. ENT evaluation requested. CT scan of the orbit ordered which did not show any significant abscess. Swallow evaluation, physical therapy evaluation requested. Monitor closely in ICU. Case discussed with ICU attending in detail.
[2019-02-22] MEDS: Nicardipine 20 MG/200 ML 20 MG/200 ML BAG IV PRN (18:45)
[2019-02-22] MEDS: Oxycodone/Acetaminophen 5/325 mg Tab PO PRN (20:58)
[2019-02-22] MEDS: SULBACTAM IVPB SCH (20:59)
[2019-02-22] MEDS: AMPICILLIN IVPB SCH (20:59)
--- NOTE | 2019-02-22 22:10 | CARD ---
APPROVED REPORT Date of service: 02/22/2019 EKG Measurement Heart [id number] <Conclusion> Normal sinus rhythm Possible Left atrial enlargement Cannot rule out Anterior infarct, age undetermined Abnormal ECG
[2019-02-22] MEDS: Insulin Reg-LOW-Coverage SC SCH (23:39)
[2019-02-23] MEDS: SULBACTAM IVPB SCH ×2 (01:01→06:17)
[2019-02-23] MEDS: AMPICILLIN IVPB SCH ×2 (01:01→06:17)
[2019-02-23] MEDS: Oxycodone/Acetaminophen 5/325 mg Tab PO PRN (03:14)
[2019-02-23] MEDS: Sodium Chloride 0.9% 1,000 ML IV SCH (03:16)
[2019-02-23 05:50] LABS: BASO # 0.02 K/mm3 (0.0-2.0); BASO % 0.4 % (0.0-3.0); EOS # 0.2 (0.0-0.7); EOS % 4.6 % (1.5-5.0); HEMOGLOBIN 12.4 g/dL (12.0-16.0); LYMPH # 1.2 (1.2-3.4); LYMPH % 25.5 % (22.0-35.0); MEAN CELL VOLUME 88.4 fl (80.0-105.0); MEAN CORPUSCULAR HEMOGLOBIN 27.6 pg (25.0-35.0); MEAN CORPUSCULAR HGB CONC 31.2 g/dl (31.0-37.0); MONO # 0.6 (0.1-0.6); MONO % 12.8 % (1.0-6.0); PLATELET COUNT 91 10^3/uL (120.0-450.0); RED CELL DISTRIBUTION WIDTH 13.7 % (11.5-14.5); WHITE BLOOD COUNT 4.8 10^3/uL (4.5-11.0)
[2019-02-23 05:57] LABS: ALBUMIN 3.2 g/dL (3.0-4.8); ALT/SGPT 681 U/L (7-56); AST/SGOT 709 U/L (14-36); BLOOD UREA NITROGEN 13 mg/dL (7-21); CALCIUM 8.2 mg/dL (8.4-10.5); GFR NON-AFRICAN AMERICAN > 60; HDL CHOLESTEROL 44 mg/dL (29-60); LDL CHOLESTEROL 86 mg/dL (0-129)
[2019-02-23] MEDS: Nicardipine 20 MG/200 ML 20 MG/200 ML BAG IV PRN (08:21)
[2019-02-23] MEDS: Insulin Reg-LOW-Coverage SC SCH (08:21)
--- NOTE | 2019-02-23 08:39 | CP.PCM.PN ---
<Lan German - Last Filed: 02/23/19 09:21> Subjective - Date & Time of Evaluation Date of Evaluation: 02/23/19 Time of Evaluation: 08:38 - Subjective Subjective: Lan German PGY2 IM Progress Note for Dr. Quiñones Patient was seen and examined at bedside in ICU. Patient states that she has been trying to move her RUE more with the assistance of her left arm, but is having difficulty doing so as well as having difficulty moving her RLE. Otherwise, she is requesting to be started on a diet as she tolerated her swallow eval and dinner well. She is also requesting her anxiety meds. Discussed case w/ Dr. Gunter and Dr. Decker. Objective - Vital Signs/Intake and Output Vital Signs (last 24 hours): Temp Pulse Resp BP Pulse Ox 97.8 F 59 L 20 156/75 H 93 L 02/23/19 06:00 02/23/19 07:30 02/23/19 07:30 02/23/19 07:30 02/23/19 07:30 Intake and Output: 02/23/19 02/23/19 06:59 18:59 Intake Total 1960 130 Output Total 450 Balance 1510 130 - Medications Medications: Current Medications Alprazolam (Xanax) 1 mg PO DAILY [facility]; Protocol Amlodipine Besylate (Norvasc) 10 mg PO DAILY [facility] Aspirin (Aspirin Chewable) 81 mg PO DAILY [facility] Atorvastatin Calcium (Lipitor) 40 mg PO HS [facility] Last Admin: 02/22/19 21:01 Dose: 40 mg Clonidine HCl (Catapres) 0.2 mg PO Q8 PRN PRN Reason: SBP > 140, DBP > 90 Docusate Sodium (Colace) 100 mg PO BID [facility] Enoxaparin Sodium (Lovenox) 40 mg SC DAILY [facility]; Protocol Hydrochlorothiazide (Hydrodiuril) 25 mg PO DAILY [facility] Nicardipine HCl (Cardene Iv Premix) 20 mg in 200 mls @ 50 mls/hr IV .Q4H PRN; Protocol PRN Reason: TITRATE PER MD ORDER Last Admin: 02/23/19 08:21 Dose: 5 mg/hr, 50 mls/hr Doxycycline Hyclate 100 mg/ (Sodium Chloride) 100 mls @ 100 mls/hr IVPB Q12 [facility]; Protocol Ibuprofen (Motrin Tab) 600 mg PO Q6H PRN PRN Reason: Pain, moderate (4-7) Insulin Human Regular (Humulin R Low) 0 units SC ACHS [facility]; Protocol Last Admin: 02/23/19 08:21 Dose: Not Given Nicotine (Nicoderm Cq) 1 patch TD DAILY [facility] Oxycodone HCl (Oxycodone Immediate Release Tab) 5 mg PO Q6H PRN PRN Reason: Pain, severe (8-10) Pantoprazole Sodium (Protonix Inj) 40 mg IVP DAILY [facility] Polyethylene Glycol (Miralax) 17 gm PO BID [facility] Sodium Chloride ([place]) 1 ml NS Q6H PRN PRN Reason: Nasal congestion - Labs Labs: 02/23/19 05:00 02/23/19 05:00 PT 12.5 SECONDS (9.4-12.5) 02/22/19 14:00 INR 1.13 02/22/19 14:00 APTT 32.2 Seconds (26.9-38.3) 02/22/19 14:00 - Constitutional Appears: Well, Non-toxic, No Acute Distress - Head Exam Head Exam: ATRAUMATIC, NORMAL INSPECTION - Eye Exam Eye Exam: EOMI, Normal appearance, PERRL - ENT Exam ENT Exam: Mucous Membranes Moist, Normal Oropharynx Additional comments: right nares lateral swelling - Neck Exam Neck Exam: Full ROM, Normal Inspection - Respiratory Exam Respiratory Exam: NORMAL BREATHING PATTERN. absent: Wheezes, Respiratory D istress - Cardiovascular Exam Cardiovascular Exam: RRR, +S1, +S2 - GI/Abdominal Exam GI & Abdominal Exam: Soft, Normal Bowel Sounds. absent: Distended, Tenderness - Extremities Exam Extremities Exam: absent: Full ROM, Pedal Edema - Neurological Exam Neurological Exam: Alert, Awake, Oriented x3 Neuro motor strength exam: Left Upper Extremity: 4, Left Lower Extremity: 2/1 - Skin Skin Exam: Normal Color, Warm Assessment and Plan - Assessment and Plan (Free Text) Assessment: 53 year old female with a past medical history of hypertension and 3 prior strokes presents with body weakness and trouble getting out of bed for one day. Upon presentation, patient's BP was elevated w/ SBP > 200 and DBP > 120. Patient has improving RUE but persistent RLE weakness. Patient is admitted for hypertensive emergency and we are ruling out of stroke as possible etiology of neurologic deficits. Plan: Hypertensive Emergency, r/o CVA - CODE STROKE was activated in ED - patient passed swallow eval - CT Head reviewed - cont ICU monitoring till off drips - BP controlled well on Cardene drip - will d/c NS as patient tolerating PO diet - will restart home meds (Norvasc and HCTZ) and try to taper off cardene - Clonidine PRN, however, patient states she was non-compliant with her meds at home - will ordered MRI brain w/ and w/o contrast - Echo ordered - cont ASA - Cardiology and Neurology consulted, recs appreciated - PT/OT eval pending - cont Lipitor; Lipid panel reviewed - will start heart healthy diet - fall, seizure precautions and neurochecks ordered Right nasal swelling, possibly abscess - CT showed subtle nonspecific inflammatory changes noted in the right nasal and adjacent soft tissues - d/c Unasyn due to elevated liver enzymes - will start Doxycycline instead - cont nasal spray PRN - ENT consulted, recs appreciated Elevated Liver Enzymes - likely multifactorial cause due to medication side-effect and relative hypotension - will d/c Unasyn and Percocet as well Tylenol or other hepatotoxic meds - avoid hepatotoxic meds - avoid dropping BP > 25% - will obtain hepatitis panel - repeat CMP at 1400 Chronic back pain, w/ opioid dependence - d/c tylenol and percocet due to elevated liver enzymes - start oxycodone PRN - cont NSAIDS prn, but monitor - will start bowel regimen as well Tobacco abuse - Nicotine patch ordered - Counseled patient regarding importance of tobacco abuse Anxiety - started on Xanax 1mg daily GI prophylaxis: protonix DVT prophylaxis: lovenox/SCDs Case was discussed with Dr. Quiñones <Amber Quiñones - Last Filed: 02/24/19 12:42> Objective - Vital Signs/Intake and Output Vital Signs (last 24 hours): Temp Pulse Resp BP Pulse Ox 97.8 F 76 32 H 137/91 H 96 02/24/19 08:18 02/24/19 08:19 02/23/19 18:01 02/24/19 10:00 02/23/19 08:30 Intake and Output: 02/24/19 02/24/19 06:59 18:59 Intake Total 50 Output Total 300 Balance -250 - Medications Medications: Current Medications Alprazolam (Xanax) 1 mg PO DAILY [facility]; Protocol Last Admin: 02/24/19 10:01 Dose: 1 mg Amlodipine Besylate (Norvasc) 10 mg PO DAILY [facility] Last Admin: 02/24/19 10:00 Dose: 10 mg Aspirin (Aspirin Chewable) 81 mg PO DAILY [facility] Last Admin: 02/24/19 10:00 Dose: 81 mg Atorvastatin Calcium (Lipitor) 40 mg PO HS [facility] Last Admin: 02/22/19 21:01 Dose: 40 mg Cholecalciferol (Vitamin D) 2,000 intlu PO DAILY [facility] Last Admin: 02/24/19 10:00 Dose: 2,000 intlu Clonidine HCl (Catapres) 0.2 mg PO Q8 PRN PRN Reason: SBP > 140, DBP > 90 Docusate Sodium (Colace) 100 mg PO BID [facility] Last Admin: 02/24/19 10:00 Dose: 100 mg Enoxaparin Sodium (Lovenox) 40 mg SC DAILY [facility]; Protocol Last Admin: 02/24/19 10:01 Dose: 40 mg Ergocalciferol (Drisdol 50,000 Intl Units Cap) 1 cap PO Q7D [facility] Last Admin: 02/23/19 16:07 Dose: 1 cap Hydrochlorothiazide (Hydrodiuril) 25 mg PO DAILY [facility] Last Admin: 02/24/19 10:00 Dose: 25 mg Clindamycin Phosphate (Cleocin 600mg/50ml D5w) 600 mg in 50 mls @ 50 mls/hr IVPB Q8H [facility]; Protocol Last Admin: 02/24/19 08:41 Dose: 50 mls/hr Ibuprofen (Motrin Tab) 600 mg PO Q6H PRN PRN Reason: Pain, moderate (4-7) Methylprednisolone (Solu-Medrol) 20 mg IVP Q12 [facility] Last Admin: 02/24/19 10:02 Dose: 20 mg Mupirocin (Bactroban Ointment) 0 gm NS TID [facility] Stop: 02/26/19 14:01 Last Admin: 02/24/19 11:56 Dose: 2 appl Nicotine (Nicoderm Cq) 1 patch TD DAILY [facility] Last Admin: 02/24/19 10:03 Dose: Not Given Oxycodone HCl (Oxycodone Immediate Release Tab) 10 mg PO Q6H PRN PRN Reason: Pain, severe (8-10) Pantoprazole Sodium (Protonix Ec Tab) 40 mg PO ACB [facility] Last Admin: 02/24/19 10:03 Dose: 40 mg Polyethylene Glycol (Miralax) 17 gm PO BID [facility] Last Admin: 02/24/19 10:03 Dose: Not Given Sodium Chloride ([place]) 1 ml NS Q6H PRN PRN Reason: Nasal congestion - Labs Labs: 02/24/19 05:00 02/24/19 05:00 PT 12.5 SECONDS (9.4-12.5) 02/22/19 14:00 INR 1.13 02/22/19 14:00 APTT 32.2 Seconds (26.9-38.3) 02/22/19 14:00 Attending/Attestation - Attestation I have personally seen and examined this patient.: Yes I have fully participated in the care of the patient.: Yes I have reviewed all pertinent clinical information, including history, physical exam and plan: Yes Notes (Text): 02/24/19 12:37 Attending note; Patient seen and examined with resident in ICU. Currently on nicardipine drip. Not in any acute distress. Patient is alert and awake. Oriented to place and time. Able to move her right arm. Still not able to move her right leg . Blood pressure is improving. Patient is a 53 year old female with past medical history of hypertension and ?? 3 prior strokes presents with body weakness and trouble getting out of bed for one day. Patient told the ER while she was walking outside she was feeling weakness on the right arm and leg and had to use the left hand to dial 911 . history is unreliable she reports 2 to 3 days ago, she noticed mass in right nostril and tried to t reat it with benadryl and an antiseptic which did not help. 1. Right-sided weakness; patient with a previous history of stroke with some right-sided weakness. CT head is negative. CTA is negative for acute findings. Neurology evaluation appreciated. Started on aspirin. Continue Lipitor. MRI ordered. 2. Uncontrolled hypertension/hypertension urgency. patient is started on nicardipine drip. Monitor closely in ICU. We will start p.o. medication Norvasc, hydrochlorothiazide and clonidine. Monitor blood pressure closely. Taper and DC nicardipine drip. Will avoid hypotension. Cardiology evaluation appreciated. Echocardiogram ordered. 3. Chronic opiate dependency; patient is requesting pain medication. DAIRY AND FOOD LABORATORY ASSISTANT reviewed. 4. Anxiety; questionable exacerbation of the symptoms due to psychiatric disorder. Monitor closely . Continue IV Ativan as needed. 5. Right-sided facial swelling; patient has significant swelling in the right nostril . Started on IV Unasyn. ENT evaluation requested. CT scan of the orbit ordered which did not show any significant abscess. 6. Elevated LFTs; this possibly secondary to sepsis, drug-induced. Unasyn stopped. started on clindamycin. . Hepatitis profile ordered. 7. Active smoking; smoking cessation is strongly advised . Started on NicoDerm patch . 8. Patient is currently tolerating diet. Continue heart healthy diet . 9. Noncompliance with medication. PT/OT evaluation requested. biomass production manager/social studies teacher evaluation requested. Monitor closely in ICU. Case discussed with ICU attending in detail. 02/24/19 12:41
[2019-02-23] MEDS: Enoxaparin 40 mg Syringe SC SCH (09:09)
[2019-02-23] MEDS: POLYETHYLENE GLYCOL 3350 17 GM/Dose PACKET PO SCH ×3 (09:10→17:44)
[2019-02-23] MEDS: MethylPREDNISolone 40 mg Vial IVP SCH ×2 (09:22→21:59)
[2019-02-23] MEDS: oxyCODONE 5 mg Immediate Release Tab PO PRN ×3 (09:30→21:58)
[2019-02-23] MEDS: Clindamycin 600mg/50ml D5W 600 MG/50 ML VIAL IVPB SCH ×2 (09:34→17:43)
--- NOTE | 2019-02-23 10:22 | CT ---
Date of service: 02/23/2019 PROCEDURE: CT HEAD WITHOUT CONTRAST. HISTORY: new onset R-sided weakness, code stroke COMPARISON: 02/22/2019 TECHNIQUE: Axial computed tomography images were obtained through the head/brain without intravenous contrast. Radiation dose: Total exam DLP = 910.19 mGy-cm. This CT exam was performed using one or more of the following dose reduction techniques: Automated exposure control, adjustment of the mA and/or kV according to patient size, and/or use of iterative reconstruction technique. FINDINGS: HEMORRHAGE: No intracranial hemorrhage. BRAIN: There is a vaguely rounded area of markedly decreased attenuation in the anterior corpus callosum lying between the frontal horns of the lateral ventricles. This is unchanged from the prior examination. This is concerning for white matter ischemic change. Atypical distribution for small-vessel ischemia. Consider the possibility of demyelinating disorder. Focal low-attenuation right frontoparietal centrum semiovale. Questionable low-attenuation in the cerebellar hemispheric white matter bilaterally.. No atrophy. No evidence of acute infarct. Old right thalamic lacunar infarct. VENTRICLES: Unremarkable. No hydrocephalus. CALVARIUM: Unremarkable. PARANASAL SINUSES: Unremarkable as visualized. No significant inflammatory changes. MASTOID AIR CELLS: Unremarkable as visualized. No inflammatory changes. OTHER FINDINGS: None. IMPRESSION: No intracranial mass, hemorrhage or evidence of acute infarct. White matter disease involving the deep frontal white matter bilaterally, the anterior corpus callosum, the right centrum semiovale, right periatrial white matter possibly both cerebellar hemispheres. Atypical distribution for microvascular ischemic change. Consider the possibility of a demyelinating disorder. Recommend further evaluation with gadolinium enhanced magnetic resonance imaging.
[2019-02-23 10:51] LABS: HEPATITIS B SURFACE AG Negative (NEGATIVE)
[2019-02-23 10:57] LABS: HEPATITIS A IGM NEGATIVE (NEGATIVE); HEPATITIS B CORE AB NEGATIVE (NEGATIVE)
--- NOTE | 2019-02-23 11:04 | CP.CCUPN ---
<HernanWilliambrittney Carcamo - Last Filed: 02/23/19 12:08> CCU Subjective - Physician Review Events Since Last Encounter (Free Text): 02/23/19 11:24 pt admitted for HTN urgency Subjective (Free Text): 02/23/19 11:24 pt seen and examined this morning, no new complaints CCU Objective - Vital Signs / Intake & Output Vital Signs (Last 4 hours): Vital Signs Pulse Resp BP Pulse Ox 02/23/19 10:30 72 16 166/70 H 02/23/19 10:00 80 34 H 166/76 H 02/23/19 09:32 73 23 141/105 H 02/23/19 09:08 183/80 H 02/23/19 09:00 69 183/80 H 02/23/19 08:30 60 17 169/87 H 96 02/23/19 08:04 66 22 02/23/19 08:00 65 20 165/88 H 96 02/23/19 07:30 59 L 20 156/75 H 93 L Intake and Output (Last 8hrs): Intake & Output 02/22/19 02/23/19 02/23/19 22:59 06:59 14:59 Intake Total 20 1950 130 Output Total 450 Balance 20 1500 130 Intake: IV 20 1550 130 Right Antecubital 1500 Oral 400 Output: Urine 450 Urine, Voided 450 Other: # Bowel Movements 0 - Physical Exam Physical Exam Limitations: Negative for: Altered Mental Status Head: Positive for: Atraumatic, Normocephalic Pupils: Positive for: PERRL Extroacular Muscles: Positive for: EOMI Mouth: Positive for: Moist Mucous Membranes Neck: Positive for: Normal Range of Motion Respiratory/Chest: Positive for: Clear to Auscultation, Accessory Muscle Use. Negative for: Good Air Exchange, Respiratory Distress Cardiovascular: Positive for: Regular Rate and Rhythm, Normal S1, S2 Abdomen: Positive for: Normal Bowel Sounds. Negative for: Tenderness, Distention Upper Extremity: Positive for: Normal Inspection Lower Extremity: Positive for: Normal Inspection Neurological: Positive for: CN II-XII Intact, Speech Normal, Other (RUE and RLE weakness) Skin: Positive for: Warm, Dry, Rashes Psychiatric: Positive for: Oriented x 3 - Medications Active Medications: Active Medications Generic Name Dose Route Start Last Admin Trade Name Freq PRN Reason Stop Dose Admin Alprazolam 1 mg 02/23/19 10:00 02/23/19 10:01 Xanax PO 1 mg DAILY JACKELYN Administration Protocol Amlodipine Besylate 10 mg 02/23/19 10:00 02/23/19 09:08 Norvasc PO 10 mg DAILY JACKELYN Administration Aspirin 81 mg 02/23/19 10:00 02/23/19 09:09 Aspirin Chewable PO 81 mg DAILY JACKELYN Administration Atorvastatin Calcium 40 mg 02/22/19 22:00 02/22/19 21:01 Lipitor PO 40 mg HS JACKELYN Administration Clonidine HCl 0.2 mg 02/23/19 06:59 Catapres PO Q8 PRN SBP > 140, DBP > 90 Docusate Sodium 100 mg 02/23/19 10:00 02/23/19 09:09 Colace PO 100 mg BID JACKELYN Administration Enoxaparin Sodium 40 mg 02/23/19 10:00 02/23/19 09:09 Lovenox SC 40 mg DAILY JACKELYN Administration Protocol Hydrochlorothiazide 25 mg 02/23/19 10:00 02/23/19 09:09 Hydrodiuril PO 25 mg DAILY JACKELYN Administration Nicardipine HCl 20 mg in 200 mls @ 50 mls/hr 02/22/19 17:07 02/23/19 08:21 Cardene Iv Premix IV 5 mg/hr .Q4H PRN 50 mls/hr TITRATE PER MD ORDER Administration Protocol 5 MG/HR Clindamycin Phosphate 600 mg in 50 mls @ 50 mls/hr 02/23/19 09:00 02/23/19 09:34 Cleocin 600mg/50ml D5w IVPB 50 mls/hr Q8H JACKELYN Administration Protocol Ibuprofen 600 mg 02/22/19 19:12 Motrin Tab PO Q6H PRN Pain, moderate (4-7) Methylprednisolone 20 mg 02/23/19 10:00 02/23/19 09:22 Solu-Medrol IVP 20 mg Q12 JACKELYN Administration Nicotine 1 patch 02/23/19 10:00 02/23/19 10:07 Nicoderm Cq TD Not Given DAILY JACKELYN Oxycodone HCl 5 mg 02/23/19 08:35 02/23/19 10:00 Oxycodone Immediate Release Tab PO 5 mg Q6H PRN Administration Pain, severe (8-10) Pantoprazole Sodium 40 mg 02/23/19 10:00 02/23/19 09:10 Protonix Inj IVP 40 mg DAILY JACKELYN Administration Polyethylene Glycol 17 gm 02/23/19 10:00 02/23/19 09:41 Miralax PO Not Given BID JACKELYN Sodium Chloride 1 ml 02/22/19 18:54 [place] Nasal [place] NS Q6H PRN Nasal congestion - Patient Studies Lab Studies: Lab Studies 02/23/19 02/23/19 02/23/19 Range/Units 08:40 07:51 05:00 WBC (4.5-11.0) 10^3/uL RBC (3.5-6.1) 10^6/uL Hgb (12.0-16.0) g/dL Hct (36.0-48.0) % MCV (80.0-105.0) fl MCH (25.0-35.0) pg MCHC (31.0-37.0) g/dl RDW (11.5-14.5) % Plt Count (120.0-450.0) 10^3/uL Neut % (Auto) (50.0-68.0) % Lymph % (Auto) (22.0-35.0) % [place] % (Auto) (1.0-6.0) % Eos % (Auto) (1.5-5.0) % Baso % (Auto) (0.0-3.0) % Lymph # (Auto) (1.2-3.4) [place] # (Auto) (0.1-0.6) Eos # (Auto) (0.0-0.7) Baso # (Auto) (0.0-2.0) K/mm3 Absolute Neuts (auto) (1.4-6.5) PT (9.4-12.5) SECONDS INR APTT (26.9-38.3) Seconds Sodium (132-148) mmol/L Potassium (3.6-5.0) mmol/L Chloride (98-107) mmol/L Carbon Dioxide (21-33) mmol/L Anion Gap (10-20) BUN (7-21) mg/dL Creatinine (0.7-1.2) mg/dl Est GFR ( Amer) Est GFR (Non-Af Amer) POC Glucose (mg/dL) 127 H (65-110) mg/dL Random Glucose (70-110) mg/dL Hemoglobin A1c (4.2-6.5) % Calcium (8.4-10.5) mg/dL Phosphorus (2.5-4.5) mg/dL Magnesium (1.7-2.2) mg/dL Total Bilirubin (0.2-1.3) mg/dL AST (14-36) U/L ALT (7-56) U/L Alkaline Phosphatase (38-126) U/L Lactate Dehydrogenase (333-699) U/L Total Creatine Kinase (35-230) U/L Troponin I ng/mL Total Protein (5.8-8.3) g/dL Albumin (3.0-4.8) g/dL Globulin gm/dL Albumin/Globulin Ratio (1.1-1.8) Triglycerides (35-160) mg/dL Cholesterol (130-200) mg/dL LDL Cholesterol Direct (0-129) mg/dL HDL Cholesterol (29-60) mg/dL 25-OH Vitamin D Total 16.8 L (30.0-100.0) NG/ML TSH 3rd Generation (0.46-4.68) mIU/mL Urine Color (YELLOW) Urine Appearance (CLEAR) Urine pH (4.7-8.0) Ur Specific [place] (1.005-1.035) Urine Protein (<30 mg/dL) mg/dL Urine Glucose (UA) (NEGATIVE) mg/dL Urine Ketones (NEGATIVE) mg/dL Urine Blood (NEGATIVE) Urine Nitrate (NEGATIVE) Urine Bilirubin (NEGATIVE) Urine Urobilinogen (<1 E.U./dL) E.U./dL Ur Leukocyte Esterase (NEGATIVE) [place]illian/uL Hepatitis A IgM Ab Negative (NEGATIVE) Hep Bs Antigen Negative (NEGATIVE) Hep B Core IgM Ab Negative (NEGATIVE) Blood Type Blood Type Confirm Antibody Screen BBK History Checked 02/23/19 02/23/19 02/23/19 Range/Units 05:00 05:00 05:00 WBC 4.8 D (4.5-11.0) 10^3/uL RBC 4.50 (3.5-6.1) 10^6/uL Hgb 12.4 (12.0-16.0) g/dL Hct 39.8 (36.0-48.0) % MCV 88.4 (80.0-105.0) fl MCH 27.6 (25.0-35.0) pg MCHC 31.2 (31.0-37.0) g/dl RDW 13.7 (11.5-14.5) % Plt Count 91 L (120.0-450.0) 10^3/uL Neut % (Auto) 56.7 (50.0-68.0) % Lymph % (Auto) 25.5 (22.0-35.0) % [place] % (Auto) 12.8 H (1.0-6.0) % Eos % (Auto) 4.6 (1.5-5.0) % Baso % (Auto) 0.4 (0.0-3.0) % Lymph # (Auto) 1.2 (1.2-3.4) [place] # (Auto) 0.6 (0.1-0.6) Eos # (Auto) 0.2 (0.0-0.7) Baso # (Auto) 0.02 (0.0-2.0) K/mm3 Absolute Neuts (auto) 2.74 (1.4-6.5) PT (9.4-12.5) SECONDS INR APTT (26.9-38.3) Seconds Sodium 139 (132-148) mmol/L Potassium 3.8 (3.6-5.0) mmol/L Chloride 106 (98-107) mmol/L Carbon Dioxide 31 (21-33) mmol/L Anion Gap 7 L (10-20) BUN 13 (7-21) mg/dL Creatinine 0.8 (0.7-1.2) mg/dl Est GFR ( Amer) > 60 Est GFR (Non-Af Amer) > 60 POC Glucose (mg/dL) (65-110) mg/dL Random Glucose 91 (70-110) mg/dL Hemoglobin A1c (4.2-6.5) % Calcium 8.2 L (8.4-10.5) mg/dL Phosphorus 4.5 (2.5-4.5) mg/dL Magnesium 2.1 (1.7-2.2) mg/dL Total Bilirubin 1.0 (0.2-1.3) mg/dL AST 709 H D (14-36) U/L ALT 681 H (7-56) U/L Alkaline Phosphatase 141 H D (38-126) U/L Lactate Dehydrogenase (333-699) U/L Total Creatine Kinase (35-230) U/L Troponin I ng/mL Total Protein 6.3 (5.8-8.3) g/dL Albumin 3.2 (3.0-4.8) g/dL Globulin 3.1 gm/dL Albumin/Globulin Ratio 1.0 L (1.1-1.8) Triglycerides 43 (35-160) mg/dL Cholesterol 154 (130-200) mg/dL LDL Cholesterol Direct 86 (0-129) mg/dL HDL Cholesterol 44 (29-60) mg/dL 25-OH Vitamin D Total (30.0-100.0) NG/ML TSH 3rd Generation 1.18 (0.46-4.68) mIU/mL Urine Color (YELLOW) Urine Appearance (CLEAR) Urine pH (4.7-8.0) Ur Specific [place] (1.005-1.035) Urine Protein (<30 mg/dL) mg/dL Urine Glucose (UA) (NEGATIVE) mg/dL Urine Ketones (NEGATIVE) mg/dL Urine Blood (NEGATIVE) Urine Nitrate (NEGATIVE) Urine Bilirubin (NEGATIVE) Urine Urobilinogen (<1 E.U./dL) E.U./dL Ur Leukocyte Esterase (NEGATIVE) [place]/uL Hepatitis A IgM Ab (NEGATIVE) Hep Bs Antigen (NEGATIVE) Hep B Core IgM Ab (NEGATIVE) Blood Type Blood Type Confirm Antibody Screen BBK History Checked 02/22/19 02/22/19 02/22/19 Range/Units 21:32 16:57 16:49 WBC (4.5-11.0) 10^3/uL RBC (3.5-6.1) 10^6/uL Hgb (12.0-16.0) g/dL Hct (36.0-48.0) % MCV (80.0-105.0) fl MCH (25.0-35.0) pg MCHC (31.0-37.0) g/dl RDW (11.5-14.5) % Plt Count (120.0-450.0) 10^3/uL Neut % (Auto) (50.0-68.0) % Lymph % (Auto) (22.0-35.0) % [place] % (Auto) (1.0-6.0) % Eos % (Auto) (1.5-5.0) % Baso % (Auto) (0.0-3.0) % Lymph # (Auto) (1.2-3.4) [place] # (Auto) (0.1-0.6) Eos # (Auto) (0.0-0.7) Baso # (Auto) (0.0-2.0) K/mm3 Absolute Neuts (auto) (1.4-6.5) PT (9.4-12.5) SECONDS INR APTT (26.9-38.3) Seconds Sodium (132-148) mmol/L Potassium (3.6-5.0) mmol/L Chloride (98-107) mmol/L Carbon Dioxide (21-33) mmol/L Anion Gap (10-20) BUN (7-21) mg/dL Creatinine (0.7-1.2) mg/dl Est GFR ( Amer) Est GFR (Non-Af Amer) POC Glucose (mg/dL) 111 H 136 H (65-110) mg/dL Random Glucose (70-110) mg/dL Hemoglobin A1c (4.2-6.5) % Calcium (8.4-10.5) mg/dL Phosphorus (2.5-4.5) mg/dL Magnesium (1.7-2.2) mg/dL Total Bilirubin (0.2-1.3) mg/dL AST (14-36) U/L ALT (7-56) U/L Alkaline Phosphatase (38-126) U/L Lactate Dehydrogenase (333-699) U/L Total Creatine Kinase (35-230) U/L Troponin I ng/mL Total Protein (5.8-8.3) g/dL Albumin (3.0-4.8) g/dL Globulin gm/dL Albumin/Globulin Ratio (1.1-1.8) Triglycerides (35-160) mg/dL Cholesterol (130-200) mg/dL LDL Cholesterol Direct (0-129) mg/dL HDL Cholesterol (29-60) mg/dL 25-OH Vitamin D Total (30.0-100.0) NG/ML TSH 3rd Generation (0.46-4.68) mIU/mL Urine Color Yellow (YELLOW) Urine Appearance Clear (CLEAR) Urine pH 6.5 (4.7-8.0) Ur Specific [place] 1.010 (1.005-1.035) Urine Protein Negative (<30 mg/dL) mg/dL Urine Glucose (UA) Negative (NEGATIVE) mg/dL Urine Ketones Negative (NEGATIVE) mg/dL Urine Blood Negative (NEGATIVE) Urine Nitrate Negative (NEGATIVE) Urine Bilirubin Negative (NEGATIVE) Urine Urobilinogen 1.0 H (<1 E.U./dL) E.U./dL Ur Leukocyte Esterase Negative (NEGATIVE) Lillian/uL Hepatitis A IgM Ab (NEGATIVE) Hep Bs Antigen (NEGATIVE) Hep B Core IgM Ab (NEGATIVE) Blood Type Blood Type Confirm Antibody Screen BBK History Checked 02/22/19 02/22/19 02/22/19 Range/Units 15:00 15:00 14:00 WBC (4.5-11.0) 10^3/uL RBC (3.5-6.1) 10^6/uL Hgb (12.0-16.0) g/dL Hct (36.0-48.0) % MCV (80.0-105.0) fl MCH (25.0-35.0) pg MCHC (31.0-37.0) g/dl RDW (11.5-14.5) % Plt Count (120.0-450.0) 10^3/uL Neut % (Auto) (50.0-68.0) % Lymph % (Auto) (22.0-35.0) % [place] % (Auto) (1.0-6.0) % Eos % (Auto) (1.5-5.0) % Baso % (Auto) (0.0-3.0) % Lymph # (Auto) (1.2-3.4) [place] # (Auto) (0.1-0.6) Eos # (Auto) (0.0-0.7) Baso # (Auto) (0.0-2.0) K/mm3 Absolute Neuts (auto) (1.4-6.5) PT (9.4-12.5) SECONDS INR APTT (26.9-38.3) Seconds Sodium (132-148) mmol/L Potassium (3.6-5.0) mmol/L Chloride (98-107) mmol/L Carbon Dioxide (21-33) mmol/L Anion Gap (10-20) BUN (7-21) mg/dL Creatinine (0.7-1.2) mg/dl Est GFR ( Amer) Est GFR (Non-Af Amer) POC Glucose (mg/dL) (65-110) mg/dL Random Glucose (70-110) mg/dL Hemoglobin A1c 5.8 (4.2-6.5) % Calcium (8.4-10.5) mg/dL Phosphorus (2.5-4.5) mg/dL Magnesium (1.7-2.2) mg/dL Total Bilirubin (0.2-1.3) mg/dL AST (14-36) U/L ALT (7-56) U/L Alkaline Phosphatase (38-126) U/L Lactate Dehydrogenase (333-699) U/L Total Creatine Kinase (35-230) U/L Troponin I ng/mL Total Protein (5.8-8.3) g/dL Albumin (3.0-4.8) g/dL Globulin gm/dL Albumin/Globulin Ratio (1.1-1.8) Triglycerides (35-160) mg/dL Cholesterol (130-200) mg/dL LDL Cholesterol Direct (0-129) mg/dL HDL Cholesterol (29-60) mg/dL 25-OH Vitamin D Total (30.0-100.0) NG/ML TSH 3rd Generation (0.46-4.68) mIU/mL Urine Color (YELLOW) Urine Appearance (CLEAR) Urine pH (4.7-8.0) Ur Specific [place] (1.005-1.035) Urine Protein (<30 mg/dL) mg/dL Urine Glucose (UA) (NEGATIVE) mg/dL Urine Ketones (NEGATIVE) mg/dL Urine Blood (NEGATIVE) Urine Nitrate (NEGATIVE) Urine Bilirubin (NEGATIVE) Urine Urobilinogen (<1 E.U./dL) E.U./dL Ur Leukocyte Esterase (NEGATIVE) [place]illian/uL Hepatitis A IgM Ab (NEGATIVE) Hep Bs Antigen (NEGATIVE) Hep B Core IgM Ab (NEGATIVE) Blood Type B POSITIVE Blood Type Confirm B POSITIVE Antibody Screen Negative BBK History Checked No verified bt 02/22/19 02/22/19 02/22/19 Range/Units 14:00 14:00 14:00 WBC 10.1 (4.5-11.0) 10^3/uL RBC 4.91 (3.5-6.1) 10^6/uL Hgb 13.9 (12.0-16.0) g/dL Hct 43.0 (36.0-48.0) % MCV 87.6 (80.0-105.0) fl MCH 28.3 (25.0-35.0) pg MCHC 32.3 (31.0-37.0) g/dl RDW 13.6 (11.5-14.5) % Plt Count 115 L (120.0-450.0) 10^3/uL Neut % (Auto) 64.3 (50.0-68.0) % Lymph % (Auto) 22.4 (22.0-35.0) % [place] % (Auto) 10.3 H (1.0-6.0) % Eos % (Auto) 2.8 (1.5-5.0) % Baso % (Auto) 0.2 (0.0-3.0) % Lymph # (Auto) 2.3 (1.2-3.4) [place] # (Auto) 1.0 H (0.1-0.6) Eos # (Auto) 0.3 (0.0-0.7) Baso # (Auto) 0.02 (0.0-2.0) K/mm3 Absolute Neuts (auto) 6.52 H (1.4-6.5) PT 12.5 (9.4-12.5) SECONDS INR 1.13 APTT 32.2 (26.9-38.3) Seconds Sodium 139 (132-148) mmol/L Potassium 3.7 (3.6-5.0) mmol/L Chloride 103 (98-107) mmol/L Carbon Dioxide 32 (21-33) mmol/L Anion Gap 8 L (10-20) BUN 10 (7-21) mg/dL Creatinine 0.9 (0.7-1.2) mg/dl Est GFR ( Amer) > 60 Est GFR (Non-Af Amer) > 60 POC Glucose (mg/dL) (65-110) mg/dL Random Glucose 96 (70-110) mg/dL Hemoglobin A1c (4.2-6.5) % Calcium 8.8 (8.4-10.5) mg/dL Phosphorus (2.5-4.5) mg/dL Magnesium (1.7-2.2) mg/dL Total Bilirubin 0.8 (0.2-1.3) mg/dL AST 22 (14-36) U/L ALT 17 (7-56) U/L Alkaline Phosphatase 64 (38-126) U/L Lactate Dehydrogenase 490 (333-699) U/L Total Creatine Kinase 110 (35-230) U/L Troponin I < 0.01 ng/mL Total Protein 7.4 (5.8-8.3) g/dL Albumin 3.8 (3.0-4.8) g/dL Globulin 3.6 gm/dL Albumin/Globulin Ratio 1.1 (1.1-1.8) Triglycerides 57 (35-160) mg/dL Cholesterol 189 (130-200) mg/dL LDL Cholesterol Direct 106 (0-129) mg/dL HDL Cholesterol 51 (29-60) mg/dL 25-OH Vitamin D Total (30.0-100.0) NG/ML TSH 3rd Generation (0.46-4.68) mIU/mL Urine Color (YELLOW) Urine Appearance (CLEAR) Urine pH (4.7-8.0) Ur Specific [place] (1.005-1.035) Urine Protein (<30 mg/dL) mg/dL Urine Glucose (UA) (NEGATIVE) mg/dL Urine Ketones (NEGATIVE) mg/dL Urine Blood (NEGATIVE) Urine Nitrate (NEGATIVE) Urine Bilirubin (NEGATIVE) Urine Urobilinogen (<1 E.U./dL) E.U./dL Ur Leukocyte Esterase (NEGATIVE) [place]illian/uL Hepatitis A IgM Ab (NEGATIVE) Hep Bs Antigen (NEGATIVE) Hep B Core IgM Ab (NEGATIVE) Blood Type Blood Type Confirm Antibody Screen BBK History Checked Laboratory Results - last 24 hr 02/22/19 02/22/19 02/22/19 14:00 14:00 14:00 WBC 10.1 RBC 4.91 Hgb 13.9 Hct 43.0 MCV 87.6 MCH 28.3 MCHC 32.3 RDW 13.6 Plt Count 115 L Neut % (Auto) 64.3 Lymph % (Auto) 22.4 [place] % (Auto) 10.3 H Eos % (Auto) 2.8 Baso % (Auto) 0.2 Lymph # (Auto) 2.3 [place] # (Auto) 1.0 H Eos # (Auto) 0.3 Baso # (Auto) 0.02 Absolute Neuts (auto) 6.52 H PT 12.5 INR 1.13 APTT 32.2 Sodium 139 Potassium 3.7 Chloride 103 Carbon Dioxide 32 Anion Gap 8 L BUN 10 Creatinine 0.9 Est GFR ( Amer) > 60 Est GFR (Non-Af Amer) > 60 POC Glucose (mg/dL) Random Glucose 96 Hemoglobin A1c Calcium 8.8 Phosphorus Magnesium Total Bilirubin 0.8 AST 22 ALT 17 Alkaline Phosphatase 64 Lactate Dehydrogenase 490 Total Creatine Kinase 110 Troponin I < 0.01 Total Protein 7.4 Albumin 3.8 Globulin 3.6 Albumin/Globulin Ratio 1.1 Triglycerides 57 Cholesterol 189 LDL Cholesterol Direct 106 HDL Cholesterol 51 25-OH Vitamin D Total TSH 3rd Generation Urine Color Urine Appearance Urine pH Ur Specific [place] Urine Protein Urine Glucose (UA) Urine Ketones Urine Blood Urine Nitrate Urine Bilirubin Urine Urobilinogen Ur Leukocyte Esterase Hepatitis A IgM Ab Hep Bs Antigen Hep B Core IgM Ab Blood Type Blood Type Confirm Antibody Screen BBK History Checked 02/22/19 02/22/19 02/22/19 14:00 15:00 15:00 WBC RBC Hgb Hct MCV MCH MCHC RDW Plt Count Neut % (Auto) Lymph % (Auto) [place] % (Auto) Eos % (Auto) Baso % (Auto) Lymph # (Auto) [place] # (Auto) Eos # (Auto) Baso # (Auto) Absolute Neuts (auto) PT INR APTT Sodium Potassium Chloride Carbon Dioxide Anion Gap BUN Creatinine Est GFR ( Amer) Est GFR (Non-Af Amer) POC Glucose (mg/dL) Random Glucose Hemoglobin A1c 5.8 Calcium Phosphorus Magnesium Total Bilirubin AST ALT Alkaline Phosphatase Lactate Dehydrogenase Total Creatine Kinase Troponin I Total Protein Albumin Globulin Albumin/Globulin Ratio Triglycerides Cholesterol LDL Cholesterol Direct HDL Cholesterol 25-OH Vitamin D Total TSH 3rd Generation Urine Color Urine Appearance Urine pH Ur Specific [place] Urine Protein Urine Glucose (UA) Urine Ketones Urine Blood Urine Nitrate Urine Bilirubin Urine Urobilinogen Ur Leukocyte Esterase Hepatitis A IgM Ab Hep Bs Antigen Hep B Core IgM Ab Blood Type B POSITIVE Blood Type Confirm B POSITIVE Antibody Screen Negative BBK History Checked No verified bt 02/22/19 02/22/19 02/22/19 16:49 16:57 21:32 WBC RBC Hgb Hct MCV MCH MCHC RDW Plt Count Neut % (Auto) Lymph % (Auto) [place] % (Auto) Eos % (Auto) Baso % (Auto) Lymph # (Auto) [place] # (Auto) Eos # (Auto) Baso # (Auto) Absolute Neuts (auto) PT INR APTT Sodium Potassium Chloride Carbon Dioxide Anion Gap BUN Creatinine Est GFR ( Amer) Est GFR (Non-Af Amer) POC Glucose (mg/dL) 136 H 111 H Random Glucose Hemoglobin A1c Calcium Phosphorus Magnesium Total Bilirubin AST ALT Alkaline Phosphatase Lactate Dehydrogenase Total Creatine Kinase Troponin I Total Protein Albumin Globulin Albumin/Globulin Ratio Triglycerides Cholesterol LDL Cholesterol Direct HDL Cholesterol 25-OH Vitamin D Total TSH 3rd Generation Urine Color Yellow Urine Appearance Clear Urine pH 6.5 Ur Specific [place] 1.010 Urine Protein Negative Urine Glucose (UA) Negative Urine Ketones Negative Urine Blood Negative Urine Nitrate Negative Urine Bilirubin Negative Urine Urobilinogen 1.0 H Ur Leukocyte Esterase Negative Hepatitis A IgM Ab Hep Bs Antigen Hep B Core IgM Ab Blood Type Blood Type Confirm Antibody Screen BBK History Checked 02/23/19 02/23/19 02/23/19 05:00 05:00 05:00 WBC 4.8 D RBC 4.50 Hgb 12.4 Hct 39.8 MCV 88.4 MCH 27.6 MCHC 31.2 RDW 13.7 Plt Count 91 L Neut % (Auto) 56.7 Lymph % (Auto) 25.5 [place] % (Auto) 12.8 H Eos % (Auto) 4.6 Baso % (Auto) 0.4 Lymph # (Auto) 1.2 [place] # (Auto) 0.6 Eos # (Auto) 0.2 Baso # (Auto) 0.02 Absolute Neuts (auto) 2.74 PT INR APTT Sodium 139 Potassium 3.8 Chloride 106 Carbon Dioxide 31 Anion Gap 7 L BUN 13 Creatinine 0.8 Est GFR ( Amer) > 60 Est GFR (Non-Af Amer) > 60 POC Glucose (mg/dL) Random Glucose 91 Hemoglobin A1c Calcium 8.2 L Phosphorus 4.5 Magnesium 2.1 Total Bilirubin 1.0 AST 709 H D ALT 681 H Alkaline Phosphatase 141 H D Lactate Dehydrogenase Total Creatine Kinase Troponin I Total Protein 6.3 Albumin 3.2 Globulin 3.1 Albumin/Globulin Ratio 1.0 L Triglycerides 43 Cholesterol 154 LDL Cholesterol Direct 86 HDL Cholesterol 44 25-OH Vitamin D Total TSH 3rd Generation 1.18 Urine Color Urine Appearance Urine pH Ur Specific [place] Urine Protein Urine Glucose (UA) Urine Ketones Urine Blood Urine Nitrate Urine Bilirubin Urine Urobilinogen Ur Leukocyte Esterase Hepatitis A IgM Ab Hep Bs Antigen Hep B Core IgM Ab Blood Type Blood Type Confirm Antibody Screen BBK History Checked 02/23/19 02/23/19 02/23/19 05:00 07:51 08:40 WBC RBC Hgb Hct MCV MCH MCHC RDW Plt Count Neut % (Auto) Lymph % (Auto) [place] % (Auto) Eos % (Auto) Baso % (Auto) Lymph # (Auto) [place] # (Auto) Eos # (Auto) Baso # (Auto) Absolute Neuts (auto) PT INR APTT Sodium Potassium Chloride Carbon Dioxide Anion Gap BUN Creatinine Est GFR ( Amer) Est GFR (Non-Af Amer) POC Glucose (mg/dL) 127 H Random Glucose Hemoglobin A1c Calcium Phosphorus Magnesium Total Bilirubin AST ALT Alkaline Phosphatase Lactate Dehydrogenase Total Creatine Kinase Troponin I Total Protein Albumin Globulin Albumin/Globulin Ratio Triglycerides Cholesterol LDL Cholesterol Direct HDL Cholesterol 25-OH Vitamin D Total 16.8 L TSH 3rd Generation Urine Color Urine Appearance Urine pH Ur Specific [place] Urine Protein Urine Glucose (UA) Urine Ketones Urine Blood Urine Nitrate Urine Bilirubin Urine Urobilinogen Ur Leukocyte Esterase Hepatitis A IgM Ab Negative Hep Bs Antigen Negative Hep B Core IgM Ab Negative Blood Type Blood Type Confirm Antibody Screen BBK History Checked Radiology Impressions: Radiology Impressions Chest X-Ray 02/22/19 14:18 IMPRESSION: No focal consolidation. Head CT 02/22/19 14:18 IMPRESSION: Left greater than right cerebellar hypodense regions likely related to encephalomalacia. Additional regions of moderate nonspecific white matter changes. 11 mm hyperdense focus is noted within the medial cerebellum of unclear etiology; malignant neoplasm must be excluded. MRI without and with IV contrast recommended for further evaluation. 1.6 x 1.1 cm hypodense fluid density structure noted within the anterior corpus, possibly cyst. Subtle inflammatory changes noted within the right nasal and adjacent soft tissues, nonspecific. No discrete fluid collection or drainable abscess evident. Findings discussed with Dr. Akabr on 02/22/19 at [address] 02/22/19 14:20 IMPRESSION: No acute finding Head/Neck CTA 02/22/19 14:56 IMPRESSION: Normal CT Angiography of the neck. CT Angiography of the Brain. HISTORY: right sided weakness COMPARISON: None available. TECHNIQUE: CT angiography of the intracranial arteries was performed. Coronal and sagittal maximum intensity projection reformated images were generated. Radiation dose: Total exam DLP = 1962.7 mGy-cm. This CT exam was performed using one or more of the following dose reduction techniques: Automated exposure control, adjustment of the mA and/or kV according to patient size, and/or use of iterative reconstruction technique. FINDINGS: INTERNAL CEREBRAL ARTERIES: Unremarkable. The skull base, petrous, cavernous and supraclinoid segments are bilaterally widely patent. ANTERIOR CEREBRAL ARTERIES: Unremarkable. A1 and A2 segments are widely patent. Smaller distal branches unremarkable, as visualized. MIDDLE CEREBRAL ARTERIES: Unremarkable. M1 and M2 segments are widely patent. Perisylvian branches grossly symmetric. POSTERIOR CIRCULATION: Basilar Artery: Unremarkable. Distal Vertebral Arteries: Unremarkable. Posterior Cerebral Arteries: Unremarkable. Posterior Inferior Cerebellar Arteries: Unremarkable. ANEURYSM/ VASCULAR MALFORMATIONS: None. OTHER FINDINGS: None. IMPRESSION: Unremarkable CT Angiography of the Brain. CT Angiography Chest, Abdomen and Pelvis with intravenous contrast HISTORY: right sided weakness COMPARISON: None. TECHNIQUE: Contiguous axial images of the chest, abdomen and pelvis were obtained in the phase of aortic enhancement. Coronal and sagittal reformats were generated. IV dose administered: Total injection of 150 cc of Omni 350 Radiation dose: Total exam DLP = 1962.7 mGy-cm. This CT exam was performed using one or more of the following dose reduction techniques: Automated exposure control, adjustment of the mA and/or kV according to patient size, and/or use of iterative reconstruction technique. FINDINGS: CT ANGIOGRAPHY OF THE CHEST WITH & WITHOUT CONTRAST: AORTA (CHEST AND ABDOMEN): The thoracic and abdominal aorta are unremarkable, without aneurysm, dissection or rupture. The celiac axis, superior mesenteric artery, inferior mesenteric artery and the renal arteries are widely patent. The pelvic arteries are unremarkable. LUNGS: Clear. No nodule, mass or consolidation. MEDIASTINUM: Unremarkable. Normal caliber aorta and pulmonary arterial trunk. No aortic dissection. Normal size heart. LYMPH NODES: Unremarkable. PLEURA: Unremarkable. No pneumothorax. No pleural fluid. BONES: Unremarkable. OTHER FINDINGS: None. CT ANGIOGRAPHY OF THE ABDOMEN AND PELVIS WITH CONTRAST: LIVER: Unremarkable. No gross lesion or ductal dilatation. GALLBLADDER AND BILE DUCTS: Gallbladder removed. Common duct normal in caliber PANCREAS: Unremarkable. No gross lesion or ductal dilatation. SPLEEN: Unremarkable. ADRENALS: Unremarkable. No mass. KIDNEYS AND URETERS: Unremarkable. No hydronephrosis. No solid mass. VASCULATURE: Unremarkable. No aortic aneurysm. No aortic atherosclerotic calcification or mural plaque present. STOMACH AND BOWEL: Unremarkable. No obstruction. No gross mural thickening. APPENDIX: Normal appendix. PERITONEUM: Unremarkable. No free fluid. No free air. LYMPH NODES: Unremarkable. No enlarged lymph nodes. BLADDER: Unremarkable. REPRODUCTIVE: Unremarkable. BONES: No acute fracture. OTHER FINDINGS: Findings were discussed with Dr. Slater at 4:30 p.m. IMPRESSION: No evidence of aneurysm or dissection Head CT 02/22/19 17:09 IMPRESSION: No intracranial mass, hemorrhage or evidence of acute infarct. White matter disease involving the deep frontal white matter bilaterally, the anterior corpus callosum, the right centrum semiovale, right periatrial white matter possibly both cerebellar hemispheres. Atypical distribution for microvascular ischemic change. Consider the possibility of a demyelinating disorder. Recommend further evaluation with gadolinium enhanced magnetic resonance imaging. EKG/Cardiology Studies: Cardiology / EKG Studies 02/22/19 14:18 ELECTROCARDIOGRAM Stat Comment: Reason For Exam: code stroke Fingerstick Blood Sugar Results: 140 Critical Care Progress Note - Nutrition Nutrition: Nutrition Category Date Time Status Heart Healthy Diet [DIET] Diets 02/23/19 Breakfast Active Assessment/Plan - Assessment and Plan (Free Text) Assessment: Pt is a 53 yo female with PMH of HTN, 3 prior CVA, chronic back pain, and tobacco abuse who presented with HTN urgency as well as right sided weakness. Plan: Neuro/ Psyc - history of CVA, anxiety - rule out CVA due to HTN emergency - started on Xanax 1mg daily - CT Head negative for acute pathology - Neurology consulted Cardio - Hypertensive Emergency, r/o CVA - CODE STROKE was activated in ED - Norvasc, HCTZ, Clonidine, ASA - Cardiology consulted, recs appreciated Swan - Tobacco abuse - maintain O2>92% GI - elevated liver enzymes - avoid hepatotoxic meds - Hep ABC negative - heart healthy diet Nephro/ - continue to monitor BUN/Cr Heme/ Onc - Hgb 12.4 MSK - Chronic back pain, w/ opioid dependence - oxycodone PRN ID - Right nasal swelling - CT showed subtle nonspecific inflammatory changes noted in the right nasal and adjacent soft tissues - clindamycin - Bactraban nasal spray PRN - ENT consulted, recs appreciated Endo - maintain euglycemia Pt seen, examined, assessment and plan discussed with Dr Brianne Becerra PGY1 - Date & Time Date: 02/23/19 Time: 11:29 <Hany Decker - Last Filed: 02/24/19 08:23> CCU Objective - Vital Signs / Intake & Output Intake and Output (Last 8hrs): Intake & Output 02/23/19 02/24/19 02/24/19 22:59 06:59 14:59 Intake Total 750 50 Output Total 900 300 Balance -150 -250 Intake: IV 450 50 Right Antecubital 450 50 Oral 300 Output: Urine 900 300 Urine, Voided 900 300 Other: # Bowel Movements 0 - Medications Active Medications: Active Medications Generic Name Dose Route Start Last Admin Trade Name Freq PRN Reason Stop Dose Admin Alprazolam 1 mg 02/23/19 10:00 02/23/19 10:01 Xanax PO 1 mg DAILY JACKELYN Administration Protocol Amlodipine Besylate 10 mg 02/23/19 10:00 02/23/19 09:08 Norvasc PO 10 mg DAILY JACKELYN Administration Aspirin 81 mg 02/23/19 10:00 02/23/19 09:09 Aspirin Chewable PO 81 mg DAILY JACKELYN Administration Atorvastatin Calcium 40 mg 02/22/19 22:00 02/22/19 21:01 Lipitor PO 40 mg HS JACKELYN Administration Cholecalciferol 2,000 intlu 02/24/19 10:00 Vitamin D PO DAILY [facility] Clonidine HCl 0.2 mg 02/23/19 06:59 Catapres PO Q8 PRN SBP > 140, DBP > 90 Docusate Sodium 100 mg 02/23/19 10:00 02/23/19 17:44 Colace PO 100 mg BID JACKELYN Administration Enoxaparin Sodium 40 mg 02/23/19 10:00 02/23/19 09:09 Lovenox SC 40 mg DAILY JACKELYN Administration Protocol Ergocalciferol 1 cap 02/23/19 12:45 02/23/19 16:07 Drisdol 50,000 Intl Units Cap PO 1 cap Q7D JACKELYN Administration Hydrochlorothiazide 25 mg 02/23/19 10:00 02/23/19 09:09 Hydrodiuril PO 25 mg DAILY JACKELYN Administration Nicardipine HCl 20 mg in 200 mls @ 50 mls/hr 02/22/19 17:07 02/23/19 12:00 Cardene Iv Premix IV 0 mg/hr .Q4H PRN 0 mls/hr TITRATE PER MD ORDER Titration Protocol 5 MG/HR Clindamycin Phosphate 600 mg in 50 mls @ 50 mls/hr 02/23/19 09:00 02/24/19 01:22 Cleocin 600mg/50ml D5w IVPB 50 mls/hr Q8H JACKELYN Administration Protocol Ibuprofen 600 mg 02/22/19 19:12 Motrin Tab PO Q6H PRN Pain, moderate (4-7) Methylprednisolone 20 mg 02/23/19 10:00 02/23/19 21:59 Solu-Medrol IVP 20 mg Q12 JACKELYN Administration Mupirocin 0 gm 02/23/19 14:00 02/23/19 17:44 Bactroban Ointment NS 02/26/19 14:01 1 appl TID JACKELYN Administration Nicotine 1 patch 02/23/19 10:00 02/23/19 10:07 Nicoderm Cq TD Not Given DAILY JACKELYN Oxycodone HCl 5 mg 02/23/19 08:35 02/23/19 21:58 Oxycodone Immediate Release Tab PO 5 mg Q6H PRN Administration Pain, severe (8-10) Pantoprazole Sodium 40 mg 02/24/19 07:30 Protonix Ec Tab PO ACB JACKELYN Polyethylene Glycol 17 gm 02/23/19 10:00 02/23/19 17:44 Miralax PO 17 gm BID JACKELYN Administration Sodium Chloride 1 ml 02/22/19 18:54 [place] Nasal [place] NS Q6H PRN Nasal congestion - Patient Studies Lab Studies: Microbiology Studies 02/22/19 15:00 Blood Culture - Preliminary Blood NO GROWTH AFTER 24 HOURS 02/22/19 14:45 Blood Culture - Preliminary Blood NO GROWTH AFTER 24 HOURS 02/22/19 19:00 MRSA Culture (Admit) - Final [place] MRSA NOT DETECTED 02/22/19 16:57 Urine Culture - Final Urine Random No Growth (<1,000 CFU/ML) Lab Studies 02/24/19 02/24/19 02/23/19 Range/Units 05:00 05:00 15:15 WBC 10.4 D (4.5-11.0) 10^3/uL RBC 4.77 (3.5-6.1) 10^6/uL Hgb 13.5 (12.0-16.0) g/dL Hct 41.2 (36.0-48.0) % MCV 86.4 (80.0-105.0) fl MCH 28.3 (25.0-35.0) pg MCHC 32.8 (31.0-37.0) g/dl RDW 13.3 (11.5-14.5) % Plt Count 128 (120.0-450.0) 10^3/uL Neut % (Auto) 86.7 H (50.0-68.0) % Lymph % (Auto) 10.2 L (22.0-35.0) % [place] % (Auto) 3.0 (1.0-6.0) % Eos % (Auto) 0.0 L (1.5-5.0) % Baso % (Auto) 0.1 (0.0-3.0) % Lymph # (Auto) 1.1 L (1.2-3.4) [place] # (Auto) 0.3 (0.1-0.6) Eos # (Auto) 0.0 (0.0-0.7) Baso # (Auto) 0.01 (0.0-2.0) K/mm3 Absolute Neuts (auto) 9.02 H (1.4-6.5) Sodium 138 135 (132-148) mmol/L Potassium 4.0 4.0 (3.6-5.0) mmol/L Chloride 101 102 (98-107) mmol/L Carbon Dioxide 32 26 (21-33) mmol/L Anion Gap 9 L 11 (10-20) BUN 14 12 (7-21) mg/dL Creatinine 0.8 0.7 (0.7-1.2) mg/dl Est GFR ( Amer) > 60 > 60 Est GFR (Non-Af Amer) > 60 > 60 POC Glucose (mg/dL) (65-110) mg/dL Random Glucose 135 H 167 H (70-110) mg/dL Calcium 8.8 8.6 (8.4-10.5) mg/dL Total Bilirubin 0.5 1.1 (0.2-1.3) mg/dL AST 211 H D 539 H D (14-36) U/L ALT 487 H 673 H (7-56) U/L Alkaline Phosphatase 152 H 176 H D (38-126) U/L Total Protein 6.9 7.4 (5.8-8.3) g/dL Albumin 3.5 3.7 (3.0-4.8) g/dL Globulin 3.4 3.7 gm/dL Albumin/Globulin Ratio 1.0 L 1.0 L (1.1-1.8) Vitamin B12 (239-931) pg/mL 25-OH Vitamin D Total (30.0-100.0) NG/ML Folate ng/mL Hepatitis A IgM Ab (NEGATIVE) Hep Bs Antigen (NEGATIVE) Hep B Core IgM Ab (NEGATIVE) Hepatitis C Antibody (NEGATIVE) 02/23/19 02/23/19 02/23/19 Range/Units 15:15 11:14 08:40 WBC 7.7 D (4.5-11.0) 10^3/uL RBC 4.96 (3.5-6.1) 10^6/uL Hgb 14.1 (12.0-16.0) g/dL Hct 43.8 (36.0-48.0) % MCV 88.3 (80.0-105.0) fl MCH 28.4 (25.0-35.0) pg MCHC 32.2 (31.0-37.0) g/dl RDW 13.5 (11.5-14.5) % Plt Count 118 L (120.0-450.0) 10^3/uL Neut % (Auto) (50.0-68.0) % Lymph % (Auto) (22.0-35.0) % Sab[place] % (Auto) (1.0-6.0) % Eos % (Auto) (1.5-5.0) % Baso % (Auto) (0.0-3.0) % Lymph # (Auto) (1.2-3.4) Sabine # (Auto) (0.1-0.6) Eos # (Auto) (0.0-0.7) Baso # (Auto) (0.0-2.0) K/mm3 Absolute Neuts (auto) (1.4-6.5) Sodium (132-148) mmol/L Potassium (3.6-5.0) mmol/L Chloride (98-107) mmol/L Carbon Dioxide (21-33) mmol/L Anion Gap (10-20) BUN (7-21) mg/dL Creatinine (0.7-1.2) mg/dl Est GFR ( Amer) Est GFR (Non-Af Amer) POC Glucose (mg/dL) 147 H (65-110) mg/dL Random Glucose (70-110) mg/dL Calcium (8.4-10.5) mg/dL Total Bilirubin (0.2-1.3) mg/dL AST (14-36) U/L ALT (7-56) U/L Alkaline Phosphatase (38-126) U/L Total Protein (5.8-8.3) g/dL Albumin (3.0-4.8) g/dL Globulin gm/dL Albumin/Globulin Ratio (1.1-1.8) Vitamin B12 (239-931) pg/mL 25-OH Vitamin D Total (30.0-100.0) NG/ML Folate ng/mL Hepatitis A IgM Ab Negative (NEGATIVE) Hep Bs Antigen Negative (NEGATIVE) Hep B Core IgM Ab Negative (NEGATIVE) Hepatitis C Antibody Negative (NEGATIVE) 02/23/19 02/23/19 02/23/19 Range/Units 07:51 05:00 05:00 WBC (4.5-11.0) 10^3/uL RBC (3.5-6.1) 10^6/uL Hgb (12.0-16.0) g/dL Hct (36.0-48.0) % MCV (80.0-105.0) fl MCH (25.0-35.0) pg MCHC (31.0-37.0) g/dl RDW (11.5-14.5) % Plt Count (120.0-450.0) 10^3/uL Neut % (Auto) (50.0-68.0) % Lymph % (Auto) (22.0-35.0) % Sab[place] % (Auto) (1.0-6.0) % Eos % (Auto) (1.5-5.0) % Baso % (Auto) (0.0-3.0) % Lymph # (Auto) (1.2-3.4) Sab[place] # (Auto) (0.1-0.6) Eos # (Auto) (0.0-0.7) Baso # (Auto) (0.0-2.0) K/mm3 Absolute Neuts (auto) (1.4-6.5) Sodium (132-148) mmol/L Potassium (3.6-5.0) mmol/L Chloride (98-107) mmol/L Carbon Dioxide (21-33) mmol/L Anion Gap (10-20) BUN (7-21) mg/dL Creatinine (0.7-1.2) mg/dl Est GFR ( Amer) Est GFR (Non-Af Amer) POC Glucose (mg/dL) 127 H (65-110) mg/dL Random Glucose (70-110) mg/dL Calcium (8.4-10.5) mg/dL Total Bilirubin (0.2-1.3) mg/dL AST (14-36) U/L ALT (7-56) U/L Alkaline Phosphatase (38-126) U/L Total Protein (5.8-8.3) g/dL Albumin (3.0-4.8) g/dL Globulin gm/dL Albumin/Globulin Ratio (1.1-1.8) Vitamin B12 843 (239-931) pg/mL 25-OH Vitamin D Total 16.8 L (30.0-100.0) NG/ML Folate 15.4 ng/mL Hepatitis A IgM Ab (NEGATIVE) Hep Bs Antigen (NEGATIVE) Hep B Core IgM Ab (NEGATIVE) Hepatitis C Antibody (NEGATIVE) Laboratory Results - last 24 hr 02/23/19 02/23/19 02/23/19 05:00 05:00 07:51 WBC RBC Hgb Hct MCV MCH MCHC RDW Plt Count Neut % (Auto) Lymph % (Auto) [place] % (Auto) Eos % (Auto) Baso % (Auto) Lymph # (Auto) [place] # (Auto) Eos # (Auto) Baso # (Auto) Absolute Neuts (auto) Sodium Potassium Chloride Carbon Dioxide Anion Gap BUN Creatinine Est GFR ( Amer) Est GFR (Non-Af Amer) POC Glucose (mg/dL) 127 H Random Glucose Calcium Total Bilirubin AST ALT Alkaline Phosphatase Total Protein Albumin Globulin Albumin/Globulin Ratio Vitamin B12 843 25-OH Vitamin D Total 16.8 L Folate 15.4 Hepatitis A IgM Ab Hep Bs Antigen Hep B Core IgM Ab Hepatitis C Antibody 02/23/19 02/23/19 02/23/19 08:40 11:14 15:15 WBC 7.7 D RBC 4.96 Hgb 14.1 Hct 43.8 MCV 88.3 MCH 28.4 MCHC 32.2 RDW 13.5 Plt Count 118 L Neut % (Auto) Lymph % (Auto) [place] % (Auto) Eos % (Auto) Baso % (Auto) Lymph # (Auto) [place] # (Auto) Eos # (Auto) Baso # (Auto) Absolute Neuts (auto) Sodium Potassium Chloride Carbon Dioxide Anion Gap BUN Creatinine Est GFR ( Amer) Est GFR (Non-Af Amer) POC Glucose (mg/dL) 147 H Random Glucose Calcium Total Bilirubin AST ALT Alkaline Phosphatase Total Protein Albumin Globulin Albumin/Globulin Ratio Vitamin B12 25-OH Vitamin D Total Folate Hepatitis A IgM Ab Negative Hep Bs Antigen Negative Hep B Core IgM Ab Negative Hepatitis C Antibody Negative 02/23/19 02/24/19 02/24/19 15:15 05:00 05:00 WBC 10.4 D RBC 4.77 Hgb 13.5 Hct 41.2 MCV 86.4 MCH 28.3 MCHC 32.8 RDW 13.3 Plt Count 128 Neut % (Auto) 86.7 H Lymph % (Auto) 10.2 L [place] % (Auto) 3.0 Eos % (Auto) 0.0 L Baso % (Auto) 0.1 Lymph # (Auto) 1.1 L [place] # (Auto) 0.3 Eos # (Auto) 0.0 Baso # (Auto) 0.01 Absolute Neuts (auto) 9.02 H Sodium 135 138 Potassium 4.0 4.0 Chloride 102 101 Carbon Dioxide 26 32 Anion Gap 11 9 L BUN 12 14 Creatinine 0.7 0.8 Est GFR ( Amer) > 60 > 60 Est GFR (Non-Af Amer) > 60 > 60 POC Glucose (mg/dL) Random Glucose 167 H 135 H Calcium 8.6 8.8 Total Bilirubin 1.1 0.5 AST 539 H D 211 H D ALT 673 H 487 H Alkaline Phosphatase 176 H D 152 H Total Protein 7.4 6.9 Albumin 3.7 3.5 Globulin 3.7 3.4 Albumin/Globulin Ratio 1.0 L 1.0 L Vitamin B12 25-OH Vitamin D Total Folate Hepatitis A IgM Ab Hep Bs Antigen Hep B Core IgM Ab Hepatitis C Antibody Radiology Impressions: Radiology Impressions Head CT 02/22/19 17:09 IMPRESSION: No intracranial mass, hemorrhage or evidence of acute infarct. White matter disease involving the deep frontal white matter bilaterally, the anterior corpus callosum, the right centrum semiovale, right periatrial white matter possibly both cerebellar hemispheres. Atypical distribution for microvascular ischemic change. Consider the possibility of a demyelinating disorder. Recommend further evaluation with gadolinium enhanced magnetic resonance imaging. Critical Care Progress Note - Nutrition Nutrition: Nutrition Category Date Time Status Heart Healthy Diet [DIET] Diets 02/23/19 Breakfast Active Attending/Attestation - Attestation I have personally seen and examined this patient.: Yes I have fully participated in the care of the patient.: Yes I have reviewed all pertinent clinical information: Yes Notes (Text): 02/24/19 08:[address] Decker note
[2019-02-23 11:08] LABS: HEPATITIS C ANTIBODY NEGATIVE (NEGATIVE)
[2019-02-23 11:27] LABS: FOLATE 15.4 ng/mL
[2019-02-23] MEDS ORDERED: Ergocalciferol 50,000 Intl Units Cap PO SCH (12:45)
--- NOTE | 2019-02-23 13:45 | PN ---
DATE: 02/23/2019 SUBJECTIVE: The patient seen and examined at bedside. She is alert, awake and oriented x3. She is comfortable. She talks in full sentences. She is not in respiratory or otherwise distress. She still has swelling of the right side of the face, which was worked up yesterday. OBJECTIVE: VITAL SIGNS: The patient is on the Cardene drip at 5 mg per hour. Blood pressure 169/87, heart rate 68, oxygen saturation 96%, respiratory rate 20. HEENT: The patient has some swelling in the right cheek and periorbital area. HEART: Regular rate and rhythm. S1 and S2 normal. ABDOMEN: Soft, nontender, nondistended. LUNGS: Clear to auscultation bilaterally. MUSCULOSKELETAL: No C/C/E. NEURO: The patient moves the left upper and lower extremity without limitation; however, motor strength in the right upper and lower extremities is 1/5. The patient also has flattening of the right nasolabial fold. SKIN: Moist. PSYCH: The patient is alert, awake and oriented x3. LABORATORY DATA: Sodium 139, potassium 3.8, chloride 106, carbon dioxide 31, BUN 13, creatinine 0.8, glucose 91, AST 709, ALT 681, bilirubin 1, CPK 110, INR 1.13. WBC 4.8, hemoglobin 12.4, platelet count 91. Urine is negative for nitrates and leukocyte esterase. MEDICATIONS: Xanax daily, Norvasc, aspirin, aspirin, Lipitor (will be held), clonidine p.r.n., Colace, doxycycline, Lovenox 40 mg subcu daily, hydrochlorothiazide, ibuprofen, Cardene drip, nicotine patch, oxycodone, Protonix, MiraLax, normal saline nasal spray. ASSESSMENT AND PLAN: A 53-year-old lady who presented with hypertensive emergency complicated by hypertensive encephalopathy which substantially improved since yesterday. The patient is on Cardene drip and her home antihypertensive medications were restarted. We are actively tapering down her Cardene drip. The patient also has right side of her face swollen. That was worked up yesterday with orbit CAT scan revealing no active findings that otherwise would have suggested infectious etiology. Nevertheless, possibility of soft tissue infection is there, I will start the patient on clindamycin/steroids and going to get an ENT consult as well. We will continue target euvolemia, euglycemia, normothermia, and oxygen saturation more than 90%. I will continue with deep vein thrombosis and gastrointestinal prophylaxis. Head and neck CTA and head CT were done without significant findings. MRI of the brain is pending. Neurology consult is appreciated. Echocardiogram and carotid Doppler will be done as well. Addendum: ENT saw the patient and reviewed the orbital CT-->no need for another maxillofacial CT, agreed with clindamycin/steroids, f/u as an outpatient. weaned off cardene drip ccm time 40 min Hany Decker MD MTDD
[2019-02-23] MEDS: Mupirocin 2% Ointment 15 GM TUBE NS SCH ×2 (13:58→17:44)
[2019-02-23] MEDS ORDERED: oxyCODONE 5 mg Immediate Release Tab PO ONE (14:37)
--- NOTE | 2019-02-23 14:44 | CARD ---
APPROVED REPORT Date of service: 02/23/2019 EXAM: Two-dimensional and M-mode echocardiogram with Doppler and color Doppler. INDICATION R-SIDED WEAKNESS, CVA 2D DIMENSIONS Left Atrium (2D)5.1 (1.6-4.0cm)IVSd1.3 (0.7-1.1cm) LVDd4.3 (3.9-5.9cm)PWd1.4 (0.7-1.1cm) LVDs2.7 (2.5-4.0cm)FS (%) 37.9 % LVEF (%)68.2 (>50%) M-Mode DIMENSIONS Aortic Root3.00 (2.2-3.7cm)Aortic Cusp Exc.1.80 (1.5-2.0cm) Aortic Valve AoV Peak Dsmefimm665.0cm/sAoV VTI44.4cmAO Peak GR.25mmHg LVOT Peak Epmelevc393.0cm/sLVOT VTI38.50cmAO Mean GR.14mmHg Mitral Valve MV E Mdnhvdqz77.6cm/sMV A Bqlydock122.0cm/sE/A ratio0.6 TDI Lateral E' Peak V8.09cm/sMedial E' Peak V4.87cm/sE/Lateral E'8.6 E/Medial E'14.3 Pulmonary Valve PV Peak Jrrriood72.8cm/sPV Peak Grad.3mmHg Tricuspid Valve TR Peak Stdhcyvg175rj/sRAP [id number] Peak Gr.32mmHg PRIL08quDx LEFT VENTRICLE The left ventricle is normal size. There is mild to moderate concentric left ventricular hypertrophy. The left ventricular function is normal. The left ventricular ejection fraction is within the normal range. There is normal LV segmental wall motion. Transmitral Doppler flow pattern is Grade I-abnormal relaxation pattern. RIGHT VENTRICLE The right ventricle is normal size. There is normal right ventricular wall thickness. The right ventricular systolic function is normal. ATRIA The left atrium is mildly dilated. The right atrium size is normal. AORTIC VALVE The aortic valve is moderately thickened. There is mild subvalvular aortic stenosis. MITRAL VALVE The mitral valve is moderately thickened. Mitral regurgitation is trace to mild. There is no mitral valve stenosis. TRICUSPID VALVE There is mild tricuspid regurgitation. There is mild pulmonary hypertension. PULMONIC VALVE There is trace pulmonic valvular regurgitation. GREAT VESSELS The aortic root is normal in size. The IVC is normal in size and collapses >50% with inspiration. PERICARDIAL EFFUSION There is no pericardial effusion. <Conclusion> There is mild to moderate concentric left ventricular hypertrophy. The left ventricular function is normal. The left ventricular ejection fraction is within the normal range. There is normal LV segmental wall motion. Transmitral Doppler flow pattern is Grade I-abnormal relaxation pattern. There is mild subvalvular aortic stenosis. Mitral regurgitation is trace to mild. There is mild tricuspid regurgitation. There is mild pulmonary hypertension.
[2019-02-23 15:57] LABS: HEMOGLOBIN 14.1 g/dL (12.0-16.0); MEAN CELL VOLUME 88.3 fl (80.0-105.0); MEAN CORPUSCULAR HEMOGLOBIN 28.4 pg (25.0-35.0); MEAN CORPUSCULAR HGB CONC 32.2 g/dl (31.0-37.0); PLATELET COUNT 118 10^3/uL (120.0-450.0); RBC 4.96 10^6/uL (3.5-6.1); RED CELL DISTRIBUTION WIDTH 13.5 % (11.5-14.5); WHITE BLOOD COUNT 7.7 10^3/uL (4.5-11.0)
[2019-02-23 16:17] LABS: ALBUMIN 3.7 g/dL (3.0-4.8); ALT/SGPT 673 U/L (7-56); AST/SGOT 539 U/L (14-36); BLOOD UREA NITROGEN 12 mg/dL (7-21); CALCIUM 8.6 mg/dL (8.4-10.5); GFR NON-AFRICAN AMERICAN > 60
[2019-02-23] MEDS ORDERED: Gadodiamide 287 MG/ML VIAL (15ML) IV ONE (17:14)
--- NOTE | 2019-02-23 17:32 | CON ---
DATE: 02/23/2019 LOCATION: The patient in ICU 128, bed 6. REASON FOR CONSULTATION: Elevated high blood pressure, history of CVA. HISTORY OF PRESENT ILLNESS: The patient came to the emergency room with feeling weakness on the right side. She also stated that she was lying down, she could not lift her head up and then I questioned her and she said yeah, it was severe headache that is what she meant. She states she checked blood pressure at home and it was above 200. The patient states that she felt a bump at the right side of the nose and then she felt that her face on the right side was swollen. She also complained of some blurring of the vision. The patient is not compliant with medication, she says she had previously stroke and she was last time in [facility] ([facility] and they want to send her to rehab, but she did not go. The patient denies any exertional chest pain, shortness of breath or palpitation. PAST MEDICAL HISTORY: Hypertension. She states that she had 2 strokes in the past, spondylolisthesis, anxiety, sleep disorder, hyperlipidemia, and opioid abuse. PAST SURGICAL HISTORY: Cholecystectomy. FAMILY HISTORY: She says mother and sister have history of strokes. PERSONAL HISTORY: Used to smoke 1 pack a day for 20 years. Drinks only socially. Denies any drug abuse. HOME MEDICATIONS: Included hydrochlorothiazide 25 mg daily, amlodipine 10 mg daily, clonidine 0.2 b.i.d., Xanax 1 mg b.i.d., Percocet 5/325 mg p.r.n. REVIEW OF SYSTEMS: All the systems reviewed, positive mentioned in the history, others were negative. PHYSICAL EXAMINATION: VITAL SIGNS: Blood pressure 166/70, respirations 23, and pulse 72. The patient is afebrile. HEENT: Head is normocephalic. Eyes, pupils normal. Conjunctivae normal. Nose and throat normal. NECK: JVP low. Carotids equal. THORAX: AP diameter normal. LUNGS: Clear. CARDIOVASCULAR: S1 and S2. ABDOMEN: Soft and nontender. No organomegaly. Bowel sounds normal. EXTREMITIES: No clubbing. No cyanosis. LABORATORY DATA: WBC 4.8, hemoglobin 12.4, hematocrit 39.8, platelet earlier was 115, now is 91. EKG showed normal sinus rhythm, possible left atrial enlargement. Chest x-ray was clear. CT of the head changes suggestive of demyelinating disorder, recommend further evaluation with gadolinium-enhanced magnetic resonance imaging. Head and neck CTA, no evidence of aneurysm or dissection. DIAGNOSES: Uncontrolled hypertension. The patient has prior cerebrovascular accident also, rule out new cerebrovascular accident, hyperlipidemia, anxiety, and spondylolisthesis. The patient is on aspirin 81 mg daily, clonidine 0.2 mg p.o. every 8 hours p.r.n., clindamycin 600 mg IV every 8 hours, hydrochlorothiazide 25 mg daily, atorvastatin 40 daily, Lovenox 40 subcutaneous daily, nicardipine 20 mg and 200 mL IV fluids 5 mg per hour, amlodipine 10 mg daily, and Protonix 40 IV daily. The patient's echo has been already ordered. We will continue present therapy and we will follow with you. Vikki Gunter MD
[2019-02-24] MEDS: Clindamycin 600mg/50ml D5W 600 MG/50 ML VIAL IVPB SCH ×3 (01:22→17:02)
[2019-02-24 05:49] LABS: BASO # 0.01 K/mm3 (0.0-2.0); BASO % 0.1 % (0.0-3.0); HEMOGLOBIN 13.5 g/dL (12.0-16.0); LYMPH # 1.1 (1.2-3.4); LYMPH % 10.2 % (22.0-35.0); MEAN CELL VOLUME 86.4 fl (80.0-105.0); MEAN CORPUSCULAR HEMOGLOBIN 28.3 pg (25.0-35.0); MEAN CORPUSCULAR HGB CONC 32.8 g/dl (31.0-37.0); MONO # 0.3 (0.1-0.6); PLATELET COUNT 128 10^3/uL (120.0-450.0); RBC 4.77 10^6/uL (3.5-6.1); RED CELL DISTRIBUTION WIDTH 13.3 % (11.5-14.5); WHITE BLOOD COUNT 10.4 10^3/uL (4.5-11.0)
[2019-02-24 05:57] LABS: ALBUMIN 3.5 g/dL (3.0-4.8); ALT/SGPT 487 U/L (7-56); AST/SGOT 211 U/L (14-36); BLOOD UREA NITROGEN 14 mg/dL (7-21); CALCIUM 8.8 mg/dL (8.4-10.5); GFR NON-AFRICAN AMERICAN > 60
[2019-02-24] MEDS: oxyCODONE 5 mg Immediate Release Tab PO PRN ×3 (08:41→22:05)
[2019-02-24] MEDS ORDERED: oxyCODONE 5 mg Immediate Release Tab PO ONE (09:24)
[2019-02-24] MEDS: Cholecalciferol 1,000 INTLU TAB PO SCH (10:00)
[2019-02-24] MEDS: Enoxaparin 40 mg Syringe SC SCH (10:01)
[2019-02-24] MEDS: MethylPREDNISolone 40 mg Vial IVP SCH ×2 (10:02→22:06)
[2019-02-24] MEDS: POLYETHYLENE GLYCOL 3350 17 GM/Dose PACKET PO SCH ×2 (10:03→17:02)
[2019-02-24] MEDS: Pantoprazole 40 mg EC Tab PO SCH (10:03)
--- NOTE | 2019-02-24 10:28 | CP.CCUPN ---
<William Becerra - Last Filed: 02/24/19 12:27> CCU Subjective - Physician Review Events Since Last Encounter (Free Text): 02/24/19 10:25 NAD, no acute events overnight Subjective (Free Text): 02/23/19 11:24 pt seen and examined this morning, pt requesting pain medications no acute events overnight CCU Objective - Vital Signs / Intake & Output Vital Signs (Last 4 hours): Vital Signs Temp Pulse BP 02/24/19 10:00 137/91 H 02/24/19 08:19 76 02/24/19 08:18 97.8 F Intake and Output (Last 8hrs): Intake & Output 02/23/19 02/24/19 02/24/19 22:59 06:59 14:59 Intake Total 750 50 Output Total 900 300 Balance -150 -250 Intake: IV 450 50 Right Antecubital 450 50 Oral 300 Output: Urine 900 300 Urine, Voided 900 300 Other: # Bowel Movements 0 - Physical Exam Head: Positive for: Atraumatic, Normocephalic Pupils: Positive for: PERRL Extroacular Muscles: Positive for: EOMI Mouth: Positive for: Moist Mucous Membranes Neck: Positive for: Normal Range of Motion Respiratory/Chest: Positive for: Clear to Auscultation, Accessory Muscle Use. Negative for: Good Air Exchange, Respiratory Distress Cardiovascular: Positive for: Regular Rate and Rhythm, Normal S1, S2 Abdomen: Positive for: Normal Bowel Sounds. Negative for: Tenderness, Distention Upper Extremity: Positive for: Normal Inspection Lower Extremity: Positive for: Normal Inspection Neurological: Positive for: CN II-XII Intact, Speech Normal, Other (RUE and RLE weakness) Skin: Positive for: Warm, Dry, Rashes Psychiatric: Positive for: Oriented x 3 - Medications Active Medications: Active Medications Generic Name Dose Route Start Last Admin Trade Name Freq PRN Reason Stop Dose Admin Alprazolam 1 mg 02/23/19 10:00 02/24/19 10:01 Xanax PO 1 mg DAILY JACKELYN Administration Protocol Amlodipine Besylate 10 mg 02/23/19 10:00 02/24/19 10:00 Norvasc PO 10 mg DAILY JACKELYN Administration Aspirin 81 mg 02/23/19 10:00 02/24/19 10:00 Aspirin Chewable PO 81 mg DAILY JACKELYN Administration Atorvastatin Calcium 40 mg 02/22/19 22:00 02/22/19 21:01 Lipitor PO 40 mg HS JACKELYN Administration Cholecalciferol 2,000 intlu 02/24/19 10:00 02/24/19 10:00 Vitamin D PO 2,000 intlu DAILY JACKELYN Administration Clonidine HCl 0.2 mg 02/23/19 06:59 Catapres PO Q8 PRN SBP > 140, DBP > 90 Docusate Sodium 100 mg 02/23/19 10:00 02/24/19 10:00 Colace PO 100 mg BID JACKELYN Administration Enoxaparin Sodium 40 mg 02/23/19 10:00 02/24/19 10:01 Lovenox SC 40 mg DAILY JACKELYN Administration Protocol Ergocalciferol 1 cap 02/23/19 12:45 02/23/19 16:07 Drisdol 50,000 Intl Units Cap PO 1 cap Q7D JACKELYN Administration Hydrochlorothiazide 25 mg 02/23/19 10:00 02/24/19 10:00 Hydrodiuril PO 25 mg DAILY JACKELYN Administration Clindamycin Phosphate 600 mg in 50 mls @ 50 mls/hr 02/23/19 09:00 02/24/19 08:41 Cleocin 600mg/50ml D5w IVPB 50 mls/hr Q8H JACKELYN Administration Protocol Ibuprofen 600 mg 02/22/19 19:12 Motrin Tab PO Q6H PRN Pain, moderate (4-7) Methylprednisolone 20 mg 02/23/19 10:00 02/24/19 10:02 Solu-Medrol IVP 20 mg Q12 JACKELYN Administration Mupirocin 0 gm 02/23/19 14:00 02/23/19 17:44 Bactroban Ointment NS 02/26/19 14:01 1 appl TID JACKELYN Administration Nicotine 1 patch 02/23/19 10:00 02/24/19 10:03 Nicoderm Cq TD Not Given DAILY JACEKLYN Oxycodone HCl 10 mg 02/24/19 09:23 Oxycodone Immediate Release Tab PO Q6H PRN Pain, severe (8-10) Pantoprazole Sodium 40 mg 02/24/19 07:30 02/24/19 10:03 Protonix Ec Tab PO 40 mg ACB JACKELYN Administration Polyethylene Glycol 17 gm 02/23/19 10:00 02/24/19 10:03 Miralax PO Not Given BID JACKELYN Sodium Chloride 1 ml 02/22/19 18:54 [place] Nasal [place] NS Q6H PRN Nasal congestion - Patient Studies Lab Studies: Microbiology Studies 02/22/19 15:00 Blood Culture - Preliminary Blood NO GROWTH AFTER 24 HOURS 02/22/19 14:45 Blood Culture - Preliminary Blood NO GROWTH AFTER 24 HOURS 02/22/19 19:00 MRSA Culture (Admit) - Final Naris MRSA NOT DETECTED 02/22/19 16:57 Urine Culture - Final Urine Random No Growth (<1,000 CFU/ML) Lab Studies 02/24/19 02/24/19 02/23/19 Range/Units 05:00 05:00 15:15 WBC 10.4 D (4.5-11.0) 10^3/uL RBC 4.77 (3.5-6.1) 10^6/uL Hgb 13.5 (12.0-16.0) g/dL Hct 41.2 (36.0-48.0) % MCV 86.4 (80.0-105.0) fl MCH 28.3 (25.0-35.0) pg MCHC 32.8 (31.0-37.0) g/dl RDW 13.3 (11.5-14.5) % Plt Count 128 (120.0-450.0) 10^3/uL Neut % (Auto) 86.7 H (50.0-68.0) % Lymph % (Auto) 10.2 L (22.0-35.0) % [place] % (Auto) 3.0 (1.0-6.0) % Eos % (Auto) 0.0 L (1.5-5.0) % Baso % (Auto) 0.1 (0.0-3.0) % Lymph # (Auto) 1.1 L (1.2-3.4) [place] # (Auto) 0.3 (0.1-0.6) Eos # (Auto) 0.0 (0.0-0.7) Baso # (Auto) 0.01 (0.0-2.0) K/mm3 Absolute Neuts (auto) 9.02 H (1.4-6.5) Sodium 138 135 (132-148) mmol/L Potassium 4.0 4.0 (3.6-5.0) mmol/L Chloride 101 102 (98-107) mmol/L Carbon Dioxide 32 26 (21-33) mmol/L Anion Gap 9 L 11 (10-20) BUN 14 12 (7-21) mg/dL Creatinine 0.8 0.7 (0.7-1.2) mg/dl Est GFR ( Amer) > 60 > 60 Est GFR (Non-Af Amer) > 60 > 60 POC Glucose (mg/dL) (65-110) mg/dL Random Glucose 135 H 167 H (70-110) mg/dL Calcium 8.8 8.6 (8.4-10.5) mg/dL Total Bilirubin 0.5 1.1 (0.2-1.3) mg/dL AST 211 H D 539 H D (14-36) U/L ALT 487 H 673 H (7-56) U/L Alkaline Phosphatase 152 H 176 H D (38-126) U/L Total Protein 6.9 7.4 (5.8-8.3) g/dL Albumin 3.5 3.7 (3.0-4.8) g/dL Globulin 3.4 3.7 gm/dL Albumin/Globulin Ratio 1.0 L 1.0 L (1.1-1.8) Vitamin B12 (239-931) pg/mL Folate ng/mL Hepatitis A IgM Ab (NEGATIVE) Hep Bs Antigen (NEGATIVE) Hep B Core IgM Ab (NEGATIVE) Hepatitis C Antibody (NEGATIVE) 02/23/19 02/23/19 02/23/19 Range/Units 15:15 11:14 08:40 WBC 7.7 D (4.5-11.0) 10^3/uL RBC 4.96 (3.5-6.1) 10^6/uL Hgb 14.1 (12.0-16.0) g/dL Hct 43.8 (36.0-48.0) % MCV 88.3 (80.0-105.0) fl MCH 28.4 (25.0-35.0) pg MCHC 32.2 (31.0-37.0) g/dl RDW 13.5 (11.5-14.5) % Plt Count 118 L (120.0-450.0) 10^3/uL Neut % (Auto) (50.0-68.0) % Lymph % (Auto) (22.0-35.0) % [place] % (Auto) (1.0-6.0) % Eos % (Auto) (1.5-5.0) % Baso % (Auto) (0.0-3.0) % Lymph # (Auto) (1.2-3.4) [place] # (Auto) (0.1-0.6) Eos # (Auto) (0.0-0.7) Baso # (Auto) (0.0-2.0) K/mm3 Absolute Neuts (auto) (1.4-6.5) Sodium (132-148) mmol/L Potassium (3.6-5.0) mmol/L Chloride (98-107) mmol/L Carbon Dioxide (21-33) mmol/L Anion Gap (10-20) BUN (7-21) mg/dL Creatinine (0.7-1.2) mg/dl Est GFR ( Amer) Est GFR (Non-Af Amer) POC Glucose (mg/dL) 147 H (65-110) mg/dL Random Glucose (70-110) mg/dL Calcium (8.4-10.5) mg/dL Total Bilirubin (0.2-1.3) mg/dL AST (14-36) U/L ALT (7-56) U/L Alkaline Phosphatase (38-126) U/L Total Protein (5.8-8.3) g/dL Albumin (3.0-4.8) g/dL Globulin gm/dL Albumin/Globulin Ratio (1.1-1.8) Vitamin B12 (239-931) pg/mL Folate ng/mL Hepatitis A IgM Ab Negative (NEGATIVE) Hep Bs Antigen Negative (NEGATIVE) Hep B Core IgM Ab Negative (NEGATIVE) Hepatitis C Antibody Negative (NEGATIVE) 02/23/19 Range/Units 05:00 WBC (4.5-11.0) 10^3/uL RBC (3.5-6.1) 10^6/uL Hgb (12.0-16.0) g/dL Hct (36.0-48.0) % MCV (80.0-105.0) fl MCH (25.0-35.0) pg MCHC (31.0-37.0) g/dl RDW (11.5-14.5) % Plt Count (120.0-450.0) 10^3/uL Neut % (Auto) (50.0-68.0) % Lymph % (Auto) (22.0-35.0) % [place] % (Auto) (1.0-6.0) % Eos % (Auto) (1.5-5.0) % Baso % (Auto) (0.0-3.0) % Lymph # (Auto) (1.2-3.4) [place] # (Auto) (0.1-0.6) Eos # (Auto) (0.0-0.7) Baso # (Auto) (0.0-2.0) K/mm3 Absolute Neuts (auto) (1.4-6.5) Sodium (132-148) mmol/L Potassium (3.6-5.0) mmol/L Chloride (98-107) mmol/L Carbon Dioxide (21-33) mmol/L Anion Gap (10-20) BUN (7-21) mg/dL Creatinine (0.7-1.2) mg/dl Est GFR ( Amer) Est GFR (Non-Af Amer) POC Glucose (mg/dL) (65-110) mg/dL Random Glucose (70-110) mg/dL Calcium (8.4-10.5) mg/dL Total Bilirubin (0.2-1.3) mg/dL AST (14-36) U/L ALT (7-56) U/L Alkaline Phosphatase (38-126) U/L Total Protein (5.8-8.3) g/dL Albumin (3.0-4.8) g/dL Globulin gm/dL Albumin/Globulin Ratio (1.1-1.8) Vitamin B12 843 (239-931) pg/mL Folate 15.4 ng/mL Hepatitis A IgM Ab (NEGATIVE) Hep Bs Antigen (NEGATIVE) Hep B Core IgM Ab (NEGATIVE) Hepatitis C Antibody (NEGATIVE) Laboratory Results - last 24 hr 02/23/19 02/23/19 02/23/19 05:00 08:40 11:14 WBC RBC Hgb Hct MCV MCH MCHC RDW Plt Count Neut % (Auto) Lymph % (Auto) [place] % (Auto) Eos % (Auto) Baso % (Auto) Lymph # (Auto) [place] # (Auto) Eos # (Auto) Baso # (Auto) Absolute Neuts (auto) Sodium Potassium Chloride Carbon Dioxide Anion Gap BUN Creatinine Est GFR ( Amer) Est GFR (Non-Af Amer) POC Glucose (mg/dL) 147 H Random Glucose Calcium Total Bilirubin AST ALT Alkaline Phosphatase Total Protein Albumin Globulin Albumin/Globulin Ratio Vitamin B12 843 Folate 15.4 Hepatitis A IgM Ab Negative Hep Bs Antigen Negative Hep B Core IgM Ab Negative Hepatitis C Antibody Negative 02/23/19 02/23/19 02/24/19 15:15 15:15 05:00 WBC 7.7 D 10.4 D RBC 4.96 4.77 Hgb 14.1 13.5 Hct 43.8 41.2 MCV 88.3 86.4 MCH 28.4 28.3 MCHC 32.2 32.8 RDW 13.5 13.3 Plt Count 118 L 128 Neut % (Auto) 86.7 H Lymph % (Auto) 10.2 L [place] % (Auto) 3.0 Eos % (Auto) 0.0 L Baso % (Auto) 0.1 Lymph # (Auto) 1.1 L [place] # (Auto) 0.3 Eos # (Auto) 0.0 Baso # (Auto) 0.01 Absolute Neuts (auto) 9.02 H Sodium 135 Potassium 4.0 Chloride 102 Carbon Dioxide 26 Anion Gap 11 BUN 12 Creatinine 0.7 Est GFR ( Amer) > 60 Est GFR (Non-Af Amer) > 60 POC Glucose (mg/dL) Random Glucose 167 H Calcium 8.6 Total Bilirubin 1.1 AST 539 H D ALT 673 H Alkaline Phosphatase 176 H D Total Protein 7.4 Albumin 3.7 Globulin 3.7 Albumin/Globulin Ratio 1.0 L Vitamin B12 Folate Hepatitis A IgM Ab Hep Bs Antigen Hep B Core IgM Ab Hepatitis C Antibody 02/24/19 05:00 WBC RBC Hgb Hct MCV MCH MCHC RDW Plt Count Neut % (Auto) Lymph % (Auto) [place] % (Auto) Eos % (Auto) Baso % (Auto) Lymph # (Auto) [place] # (Auto) Eos # (Auto) Baso # (Auto) Absolute Neuts (auto) Sodium 138 Potassium 4.0 Chloride 101 Carbon Dioxide 32 Anion Gap 9 L BUN 14 Creatinine 0.8 Est GFR ( Amer) > 60 Est GFR (Non-Af Amer) > 60 POC Glucose (mg/dL) Random Glucose 135 H Calcium 8.8 Total Bilirubin 0.5 AST 211 H D ALT 487 H Alkaline Phosphatase 152 H Total Protein 6.9 Albumin 3.5 Globulin 3.4 Albumin/Globulin Ratio 1.0 L Vitamin B12 Folate Hepatitis A IgM Ab Hep Bs Antigen Hep B Core IgM Ab Hepatitis C Antibody Fingerstick Blood Sugar Results: 140 Critical Care Progress Note - Nutrition Nutrition: Nutrition Category Date Time Status Heart Healthy Diet [DIET] Diets 02/23/19 Breakfast Active Assessment/Plan - Assessment and Plan (Free Text) Assessment: Pt is a 53 yo female with PMH of HTN, 3 prior CVA, chronic back pain, and tobacco abuse who presented with HTN urgency as well as right sided weakness. Plan: Neuro/ Psyc - history of CVA, anxiety - rule out CVA due to HTN emergency - Xanax 1mg daily - CT Head negative for acute pathology - Neurology consulted Cardio - Hypertensive Emergency, r/o CVA - CODE STROKE was activated in ED - Norvasc, HCTZ, Clonidine, ASA - Cardiology consulted, recs appreciated [place] - Tobacco abuse - maintain O2>92% GI - AST/ALT 211/487 - avoid hepatotoxic meds - Hep ABC negative - heart healthy diet Nephro/ - continue to monitor BUN/Cr Heme/ Onc - Hgb 13.5 MSK - Chronic back pain, w/ opioid dependence - oxycodone PRN ID - Right nasal swelling - CT showed subtle nonspecific inflammatory changes noted in the right nasal and adjacent soft tissues - clindamycin - Bactraban nasal spray PRN - ENT consulted, recs appreciated Endo - maintain euglycemia Pt seen, examined, assessment and plan discussed with Dr Brianne Becerra PGY1 - Date & Time Date: 02/24/19 Time: 10:29 <Hany Decker - Last Filed: 02/24/19 17:31> CCU Objective - Vital Signs / Intake & Output Vital Signs (Last 4 hours): Vital Signs Pulse Resp BP 02/24/19 17:00 93 H 16 02/24/19 16:01 71 26 H 161/91 H 02/24/19 16:00 75 20 02/24/19 15:33 70 172/88 H 02/24/19 15:16 67 13 172/88 H 02/24/19 15:00 77 42 H 02/24/19 14:00 65 22 166/94 H Intake and Output (Last 8hrs): Intake & Output 02/24/19 02/24/19 02/24/19 06:59 14:59 22:59 Intake Total 50 600 Output Total 300 360 Balance -250 240 Intake: IV 50 100 Right Antecubital 50 100 Oral 500 Output: Urine 300 360 Urine, Voided 300 360 Other: # Bowel Movements 0 - Medications Active Medications: Active Medications Generic Name Dose Route Start Last Admin Trade Name Freq PRN Reason Stop Dose Admin Alprazolam 1 mg 02/23/19 10:00 02/24/19 10:01 Xanax PO 1 mg DAILY JACKELYN Administration Protocol Amlodipine Besylate 10 mg 02/23/19 10:00 02/24/19 10:00 Norvasc PO 10 mg DAILY JACKELYN Administration Aspirin 81 mg 02/23/19 10:00 02/24/19 10:00 Aspirin Chewable PO 81 mg DAILY JACKELYN Administration Atorvastatin Calcium 40 mg 02/22/19 22:00 02/22/19 21:01 Lipitor PO 40 mg HS JACKELYN Administration Cholecalciferol 2,000 intlu 02/24/19 10:00 02/24/19 10:00 Vitamin D PO 2,000 intlu DAILY JACKELYN Administration Clonidine HCl 0.2 mg 02/23/19 06:59 Catapres PO Q8 PRN SBP > 140, DBP > 90 Docusate Sodium 100 mg 02/23/19 10:00 02/24/19 17:01 Colace PO 100 mg BID JACKELYN Administration Enoxaparin Sodium 40 mg 02/23/19 10:00 02/24/19 10:01 Lovenox SC 40 mg DAILY JACKELYN Administration Protocol Ergocalciferol 1 cap 02/23/19 12:45 02/23/19 16:07 Drisdol 50,000 Intl Units Cap PO 1 cap Q7D JACKELYN Administration Hydrochlorothiazide 25 mg 02/23/19 10:00 02/24/19 10:00 Hydrodiuril PO 25 mg DAILY JACKELYN Administration Clindamycin Phosphate 600 mg in 50 mls @ 50 mls/hr 02/23/19 09:00 02/24/19 17:02 Cleocin 600mg/50ml D5w IVPB 50 mls/hr Q8H JACKELYN Administration Protocol Ibuprofen 600 mg 02/22/19 19:12 Motrin Tab PO Q6H PRN Pain, moderate (4-7) Methylprednisolone 20 mg 02/23/19 10:00 02/24/19 10:02 Solu-Medrol IVP 20 mg Q12 JACKELYN Administration Mupirocin 0 gm 02/23/19 14:00 02/24/19 17:01 Bactroban Ointment NS 02/26/19 14:01 2 appl TID JACKELYN Administration Nicotine 1 patch 02/23/19 10:00 02/24/19 10:03 Nicoderm Cq TD Not Given DAILY JACKELYN Oxycodone HCl 10 mg 02/24/19 09:23 02/24/19 16:59 Oxycodone Immediate Release Tab PO 10 mg Q6H PRN Administration Pain, severe (8-10) Pantoprazole Sodium 40 mg 02/24/19 07:30 02/24/19 10:03 Protonix Ec Tab PO 40 mg ACB JACKELYN Administration Polyethylene Glycol 17 gm 02/23/19 10:00 02/24/19 17:02 Miralax PO Not Given BID JACKELYN Sodium Chloride 1 ml 02/22/19 18:54 [place] Nasal [place] NS Q6H PRN Nasal congestion - Patient Studies Lab Studies: Microbiology Studies 02/22/19 15:00 Blood Culture - Preliminary Blood NO GROWTH AFTER 48 HOURS 02/22/19 14:45 Blood Culture - Preliminary Blood NO GROWTH AFTER 48 HOURS 02/22/19 19:00 MRSA Culture (Admit) - Final Naris MRSA NOT DETECTED Lab Studies 02/24/19 02/24/19 Range/Units 05:00 05:00 WBC 10.4 D (4.5-11.0) 10^3/uL RBC 4.77 (3.5-6.1) 10^6/uL Hgb 13.5 (12.0-16.0) g/dL Hct 41.2 (36.0-48.0) % MCV 86.4 (80.0-105.0) fl MCH 28.3 (25.0-35.0) pg MCHC 32.8 (31.0-37.0) g/dl RDW 13.3 (11.5-14.5) % Plt Count 128 (120.0-450.0) 10^3/uL Neut % (Auto) 86.7 H (50.0-68.0) % Lymph % (Auto) 10.2 L (22.0-35.0) % [place] % (Auto) 3.0 (1.0-6.0) % Eos % (Auto) 0.0 L (1.5-5.0) % Baso % (Auto) 0.1 (0.0-3.0) % Lymph # (Auto) 1.1 L (1.2-3.4) [place] # (Auto) 0.3 (0.1-0.6) Eos # (Auto) 0.0 (0.0-0.7) Baso # (Auto) 0.01 (0.0-2.0) K/mm3 Absolute Neuts (auto) 9.02 H (1.4-6.5) Sodium 138 (132-148) mmol/L Potassium 4.0 (3.6-5.0) mmol/L Chloride 101 (98-107) mmol/L Carbon Dioxide 32 (21-33) mmol/L Anion Gap 9 L (10-20) BUN 14 (7-21) mg/dL Creatinine 0.8 (0.7-1.2) mg/dl Est GFR ( Amer) > 60 Est GFR (Non-Af Amer) > 60 Random Glucose 135 H (70-110) mg/dL Calcium 8.8 (8.4-10.5) mg/dL Total Bilirubin 0.5 (0.2-1.3) mg/dL AST 211 H D (14-36) U/L ALT 487 H (7-56) U/L Alkaline Phosphatase 152 H (38-126) U/L Total Protein 6.9 (5.8-8.3) g/dL Albumin 3.5 (3.0-4.8) g/dL Globulin 3.4 gm/dL Albumin/Globulin Ratio 1.0 L (1.1-1.8) Laboratory Results - last 24 hr 02/24/19 02/24/19 05:00 05:00 WBC 10.4 D RBC 4.77 Hgb 13.5 Hct 41.2 MCV 86.4 MCH 28.3 MCHC 32.8 RDW 13.3 Plt Count 128 Neut % (Auto) 86.7 H Lymph % (Auto) 10.2 L [place] % (Auto) 3.0 Eos % (Auto) 0.0 L Baso % (Auto) 0.1 Lymph # (Auto) 1.1 L [place] # (Auto) 0.3 Eos # (Auto) 0.0 Baso # (Auto) 0.01 Absolute Neuts (auto) 9.02 H Sodium 138 Potassium 4.0 Chloride 101 Carbon Dioxide 32 Anion Gap 9 L BUN 14 Creatinine 0.8 Est GFR ( Amer) > 60 Est GFR (Non-Af Amer) > 60 Random Glucose 135 H Calcium 8.8 Total Bilirubin 0.5 AST 211 H D ALT 487 H Alkaline Phosphatase 152 H Total Protein 6.9 Albumin 3.5 Globulin 3.4 Albumin/Globulin Ratio 1.0 L Critical Care Progress Note - Nutrition Nutrition: Nutrition Category Date Time Status Heart Healthy Diet [DIET] Diets 02/23/19 Breakfast Active Attending/Attestation - Attestation I have personally seen and examined this patient.: Yes I have fully participated in the care of the patient.: Yes I have reviewed all pertinent clinical information: Yes Notes (Text): 02/24/19 17:[address] Decker note
--- NOTE | 2019-02-24 10:30 | PN ---
DATE: 02/24/2019 SUBJECTIVE: The patient is seen and examined at bedside. She is comfortable. She talks full sentences. She is not in respiratory or otherwise distress. PHYSICAL EXAMINATION: VITAL SIGNS: Blood pressure 137/91, heart rate 68, respiratory rate 14. HEENT: Head and neck atraumatic. Swelling in the right side of the face, much improved. No stridor audible. LUNGS: Clear to auscultation bilaterally. HEART: Regular rate and rhythm. S1 and S2 normal. ABDOMEN: Soft, nontender, nondistended. MUSCULOSKELETAL: No C/C/E. NEUROLOGIC: Right-sided weakness much improved; however, still motor strength down. SKIN: Moist. PSYCHIATRIC: The patient is alert, awake, and oriented x3. LABORATORY DATA: WBC 10.4, hemoglobin 13.5, platelet count 128. Sodium 138, potassium 4, chloride 101, carbon dioxide 32, BUN 14, creatinine 0.8, glucose 135. AST 211, down from 539; ALT 487, down from 673, total bilirubin 0.5. Hepatitis B and C serologies negative. MEDICATIONS: Xanax 1 mg daily, amlodipine, aspirin, Lipitor, clindamycin, clonidine p.r.n., Colace, Lovenox, hydrochlorothiazide, ibuprofen p.r.n. Solu-Medrol 20 mg IV every 12 hours, Cardene drip is off. Oxycodone 5 mg p.o. every 6 hours p.r.n., Protonix, MiraLax. ASSESSMENT AND PLAN: This is a 53-year-old lady who presented with hypertensive encephalopathy in the setting of hypertensive emergency requiring Cardene drip. Cardene drip was weaned off. She is continued on her oral antihypertensive medication with much better blood pressure control. She also had right facial cellulitis without airway compromise. She was assessed by ENT service. CAT scan of the orbit did not show any abscess or inflammatory process. She has been treated with clindamycin and low-dose steroids for presumed cellulitis. The ENT service agreed with that. At present time, the patient is hemodynamically and respiratory duggan stable. Okay to downgrade to telemetry. ccm time 40 min Hany Litinski, MD [facility] # [id number] VALERIE
[2019-02-24] MEDS: Mupirocin 2% Ointment 15 GM TUBE NS SCH ×3 (11:56→17:01)
--- NOTE | 2019-02-24 11:59 | CP.PCM.PN ---
<Emil Singh L - Last Filed: 02/24/19 12:28> Subjective - Date & Time of Evaluation Date of Evaluation: 02/24/19 Time of Evaluation: 07:30 - Subjective Subjective: Resident Progress Note for Hospitalist Service Patient examined at bedside. No acute events overnight. MRI was attempted however patient was unable to lie supine due to back pain. Patient continues to request increase in dosage of pain medications, noted to be agitated and throwing objects. Patient states she will kill herself if she does not receive pain medication. 1:1 sitter placed for suicide risk. Objective - Vital Signs/Intake and Output Vital Signs (last 24 hours): Temp Pulse Resp BP Pulse Ox 97.8 F 76 32 H 137/91 H 96 02/24/19 08:18 02/24/19 08:19 02/23/19 18:01 02/24/19 10:00 02/23/19 08:30 Intake and Output: 02/24/19 02/24/19 06:59 18:59 Intake Total 50 Output Total 300 Balance -250 - Medications Medications: Current Medications Alprazolam (Xanax) 1 mg PO DAILY [facility]; Protocol Last Admin: 02/24/19 10:01 Dose: 1 mg Amlodipine Besylate (Norvasc) 10 mg PO DAILY [facility] Last Admin: 02/24/19 10:00 Dose: 10 mg Aspirin (Aspirin Chewable) 81 mg PO DAILY [facility] Last Admin: 02/24/19 10:00 Dose: 81 mg Atorvastatin Calcium (Lipitor) 40 mg PO HS [facility] Last Admin: 02/22/19 21:01 Dose: 40 mg Cholecalciferol (Vitamin D) 2,000 intlu PO DAILY [facility] Last Admin: 02/24/19 10:00 Dose: 2,000 intlu Clonidine HCl (Catapres) 0.2 mg PO Q8 PRN PRN Reason: SBP > 140, DBP > 90 Docusate Sodium (Colace) 100 mg PO BID [facility] Last Admin: 02/24/19 10:00 Dose: 100 mg Enoxaparin Sodium (Lovenox) 40 mg SC DAILY [facility]; Protocol Last Admin: 02/24/19 10:01 Dose: 40 mg Ergocalciferol (Drisdol 50,000 Intl Units Cap) 1 cap PO Q7D [facility] Last Admin: 02/23/19 16:07 Dose: 1 cap Hydrochlorothiazide (Hydrodiuril) 25 mg PO DAILY [facility] Last Admin: 02/24/19 10:00 Dose: 25 mg Clindamycin Phosphate (Cleocin 600mg/50ml D5w) 600 mg in 50 mls @ 50 mls/hr IVPB Q8H [facility]; Protocol Last Admin: 02/24/19 08:41 Dose: 50 mls/hr Ibuprofen (Motrin Tab) 600 mg PO Q6H PRN PRN Reason: Pain, moderate (4-7) Methylprednisolone (Solu-Medrol) 20 mg IVP Q12 [facility] Last Admin: 02/24/19 10:02 Dose: 20 mg Mupirocin (Bactroban Ointment) 0 gm NS TID [facility] Stop: 02/26/19 14:01 Last Admin: 02/24/19 11:56 Dose: 2 appl Nicotine (Nicoderm Cq) 1 patch TD DAILY [facility] Last Admin: 02/24/19 10:03 Dose: Not Given Oxycodone HCl (Oxycodone Immediate Release Tab) 10 mg PO Q6H PRN PRN Reason: Pain, severe (8-10) Pantoprazole Sodium (Protonix Ec Tab) 40 mg PO ACB [facility] Last Admin: 02/24/19 10:03 Dose: 40 mg Polyethylene Glycol (Miralax) 17 gm PO BID [facility] Last Admin: 02/24/19 10:03 Dose: Not Given Sodium Chloride ([place] Nasal [place]) 1 ml NS Q6H PRN PRN Reason: Nasal congestion - Labs Labs: 02/24/19 05:00 02/24/19 05:00 PT 12.5 SECONDS (9.4-12.5) 02/22/19 14:00 INR 1.13 02/22/19 14:00 APTT 32.2 Seconds (26.9-38.3) 02/22/19 14:00 - Additional Findings Additional findings: - Constitutional Appears: Non-Toxic - Head Exam Head Exam: ATRAUMATIC, NORMOCEPHALIC - Eye Exam Eye Exam: EOMI, Normal appearance - ENT Exam ENT Exam: Mucous Membranes Moist, Normal Oropharynx Additional comments: right nares lateral swelling - Neck Exam Neck Exam: Full ROM, Normal Inspection - Respiratory Exam Respiratory Exam: NORMAL BREATHING PATTERN. absent: Wheezes, Respiratory Distress - Cardiovascular Exam Cardiovascular Exam: RRR, +S1, +S2. absent: Tachycardia - GI/Abdominal Exam GI & Abdominal Exam: Soft, Normal Bowel Sounds. absent: Distended, Tenderness - Extremities Exam Extremities Exam: absent: Full ROM, Pedal Edema - Neurological Exam Neurological Exam: Alert, Awake, Oriented x3 Neuro motor strength exam: Left Upper Extremity: 4, Left Lower Extremity: 2/1 - Skin Skin Exam: Normal Color, Warm Assessment and Plan - Assessment and Plan (Free Text) Assessment: Patient is a 53 year old female with past medical history of hypertension and 3 prior strokes presenting with weakness and elevated SBP > 200 and DBP > 120. Patient has improving RUE but persistent RLE weakness. Plan: Hypertensive emergency, r/o CVA - Code Stroke in ED - CT Head shows white matter disease, negative for acute pathology - Cardene drip discontinued - ECHO shows EF 68%, mild /TR/pulmonary hypertension - home meds Norvasc and HCTZ - cont ASA, Lipitor - cont Lipitor; lipid wnl - fall, seizure precautions and neurochecks - Cardiology and Neurology consulted, recs appreciated - PT/OT eval - followup MRI brain Right nasal swelling - CT showed subtle nonspecific inflammatory changes noted in the right nasal and adjacent soft tissues - Clindamycin 600 mg IV Q8H - nasal spray PRN - ENT consulted, recs appreciated Transaminitis - downtrending - likely multifactorial cause due to medication side-effect and relative hypotension - hepatitis negative - will d/c Unasyn and Percocet as well Tylenol or other hepatotoxic meds - avoid dropping BP > 25% Chronic back pain - opioid dependant - d/c tylenol and percocet due to transaminitis - oxycodone and NSAIDS PRN - Colace Tobacco abuse - Nicotine patch - Cessation counseling Anxiety - Xanax 1 mg daily GI prophylaxis: protonix DVT prophylaxis: lovenox/SCDs Case reviewed with Dr. Nuria Singh PGY-1 <Amber Quiñones - Last Filed: 02/24/19 13:15> Objective - Vital Signs/Intake and Output Vital Signs (last 24 hours): Temp Pulse Resp BP Pulse Ox 97.8 F 76 32 H 137/91 H 96 02/24/19 08:18 02/24/19 08:19 02/23/19 18:01 02/24/19 10:00 02/23/19 08:30 Intake and Output: 02/24/19 02/24/19 06:59 18:59 Intake Total 50 Output Total 300 Balance -250 - Medications Medications: Current Medications Alprazolam (Xanax) 1 mg PO DAILY [facility]; Protocol Last Admin: 02/24/19 10:01 Dose: 1 mg Amlodipine Besylate (Norvasc) 10 mg PO DAILY [facility] Last Admin: 02/24/19 10:00 Dose: 10 mg Aspirin (Aspirin Chewable) 81 mg PO DAILY [facility] Last Admin: 02/24/19 10:00 Dose: 81 mg Atorvastatin Calcium (Lipitor) 40 mg PO HS [facility] Last Admin: 02/22/19 21:01 Dose: 40 mg Cholecalciferol (Vitamin D) 2,000 intlu PO DAILY [facility] Last Admin: 02/24/19 10:00 Dose: 2,000 intlu Clonidine HCl (Catapres) 0.2 mg PO Q8 PRN PRN Reason: SBP > 140, DBP > 90 Docusate Sodium (Colace) 100 mg PO BID [facility] Last Admin: 02/24/19 10:00 Dose: 100 mg Enoxaparin Sodium (Lovenox) 40 mg SC DAILY [facility]; Protocol Last Admin: 02/24/19 10:01 Dose: 40 mg Ergocalciferol (Drisdol 50,000 Intl Units Cap) 1 cap PO Q7D [facility] Last Admin: 02/23/19 16:07 Dose: 1 cap Hydrochlorothiazide (Hydrodiuril) 25 mg PO DAILY [facility] Last Admin: 02/24/19 10:00 Dose: 25 mg Clindamycin Phosphate (Cleocin 600mg/50ml D5w) 600 mg in 50 mls @ 50 mls/hr IVPB Q8H [facility]; Protocol Last Admin: 02/24/19 08:41 Dose: 50 mls/hr Ibuprofen (Motrin Tab) 600 mg PO Q6H PRN PRN Reason: Pain, moderate (4-7) Methylprednisolone (Solu-Medrol) 20 mg IVP Q12 [facility] Last Admin: 02/24/19 10:02 Dose: 20 mg Mupirocin (Bactroban Ointment) 0 gm NS TID [facility] Stop: 02/26/19 14:01 Last Admin: 02/24/19 11:56 Dose: 2 appl Nicotine (Nicoderm Cq) 1 patch TD DAILY [facility] Last Admin: 02/24/19 10:03 Dose: Not Given Oxycodone HCl (Oxycodone Immediate Release Tab) 10 mg PO Q6H PRN PRN Reason: Pain, severe (8-10) Pantoprazole Sodium (Protonix Ec Tab) 40 mg PO ACB [facility] Last Admin: 02/24/19 10:03 Dose: 40 mg Polyethylene Glycol (Miralax) 17 gm PO BID [facility] Last Admin: 02/24/19 10:03 Dose: Not Given Sodium Chloride ([place] Nasal [place]) 1 ml NS Q6H PRN PRN Reason: Nasal congestion - Labs Labs: 02/24/19 05:00 02/24/19 05:00 PT 12.5 SECONDS (9.4-12.5) 02/22/19 14:00 INR 1.13 02/22/19 14:00 APTT 32.2 Seconds (26.9-38.3) 02/22/19 14:00 Attending/Attestation - Attestation I have personally seen and examined this patient.: Yes I have fully participated in the care of the patient.: Yes I have reviewed all pertinent clinical information, including history, physical exam and plan: Yes Notes (Text): 02/24/19 13:07 Attending note; Patient seen and examined with resident in ICU. Currently off nicardipine drip. Started on oral antihypertensive medications. Patient refused MRI yesterday. Currently constantly requesting Pain medication Not in any acute distress. Patient is alert and awake. Oriented to place and time. Able to move her right arm. Still not able to move her right leg . Patient is a 53 year old female with past medical history of hypertension and ?? 3 prior strokes presents with body weakness and trouble getting out of bed for one day. Patient told the ER while she was walking outside she was feeling weakness on the right arm and leg and had to use the left hand to dial 911 .history is unreliable she reports 2 to 3 days ago, she noticed mass in right nostril and tried to treat it with benadryl and an antiseptic which did not help. 1. Right-sided weakness; patient with a previous history of stroke with some right-sided weakness. CT head is negative. CTA is negative for acute findings. Neurology evaluation appreciated. Started on aspirin. Continue Lipitor. MRI ordered. Patient did not complete MRI since she is not able to lie down. Requesting more pain medication . 2. Uncontrolled hypertension/hypertension urgency. patient is started off n icardipine drip. Started on Norvasc, hydrochlorothiazide and clonidine. Monitor blood pressure closely. Cardiology evaluation appreciated. Echocardiogram showed normal ejection fraction. 3. Chronic opiate dependency; patient is requesting pain medication. TACTICAL [employer] MANAGER reviewed. Patient was getting Xanax and Percocet last. Percocet prescription was given by Dr. Gustafson in November. since then patient has bee Taking few days supply from multiple doctors. As per patient she is currently looking for pain management Doctor to prescribe long- term opiates. Chronic opiate seeking behavior suspected. 4. Anxiety; questionable exacerbation of the symptoms due to psychiatric disorder. Monitor closely . Continue IV Ativan as needed. 5. Right-sided facial swelling; proving slowly. on clindamycin. ENT evaluation appreciated. CT scan of the orbit ordered which did not show any significant abscess. 6. Elevated LFTs; impoving slowly .this possibly secondary to sepsis, drug- induced. Unasyn stopped. started on clindamycin. . Hepatitis profile is negative. 7. Active smoking; smoking cessation is strongly advised . Started on NicoDerm patch . 8. Patient is currently tolerating diet. Continue heart healthy diet . 9. Noncompliance with medication. PT/OT evaluation requested. manager sql/social work associate evaluation requested. Transfer out of ICU, Case discussed with ICU attending in detail. Addendum; As per nurse patient is throwing things and threatening with suicidal ideation. Patient is placed on one-to-one observation . Psychiatric evaluation requested. Monitor closely.
--- NOTE | 2019-02-24 17:21 | CP.PCM.CON ---
History of Present Illness - History of Present Illness History of Present Illness: This is a 53 yo female with PMHx of CVA with residual R weakness, HTN , on Clonidine , smoker , chronic back pain , presented from home with worsening R sided weakness and inability to stand on both feet. On presentation to [facility] ER , SBP was ranging from 220's - 230's , given Labetolol 20mg IV x 1 , with improvement in SBP to 170's. Patient c/o progressive swelling / mass right nostril 2 -3 days prior to admission. Patient c/o nasal obstruction , right sided facial pain - maxillary region / headaches. Denies history of repeated sinus infections / allergies. ENT consulted for possible nasal abscess. Past Patient History - Infectious Disease Hx of Infectious Diseases: None - Past Social History Smoking Status: Heavy Smoker > 10 Cigarettes Daily - CARDIAC Hx Hypertension: Yes - PULMONARY Hx Asthma: Yes - NEUROLOGICAL HX Cerebrovascular Accident: Yes (R sided weakness) - PSYCHIATRIC Hx Anxiety: Yes Hx Bipolar Disorder: Yes Hx Schizophrenia: Yes Hx Substance Use: Yes Other/Comment: insomnia - SURGICAL HISTORY Hx Cholecystectomy: Yes - ANESTHESIA Hx Anesthesia: Yes Hx Anesthesia Reactions: No Meds Allergies/Adverse Reactions: Allergies Allergy/AdvReac Type Severity Reaction Status Date / Time No Known Allergies Allergy Verified 03/23/17 16:43 - Medications Medications: Current Medications Alprazolam (Xanax) 1 mg PO DAILY [facility]; Protocol Last Admin: 02/24/19 10:01 Dose: 1 mg Amlodipine Besylate (Norvasc) 10 mg PO DAILY [facility] Last Admin: 02/24/19 10:00 Dose: 10 mg Aspirin (Aspirin Chewable) 81 mg PO DAILY [facility] Last Admin: 02/24/19 10:00 Dose: 81 mg Atorvastatin Calcium (Lipitor) 40 mg PO HS [facility] Last Admin: 02/22/19 21:01 Dose: 40 mg Cholecalciferol (Vitamin D) 2,000 intlu PO DAILY [facility] Last Admin: 02/24/19 10:00 Dose: 2,000 intlu Clonidine HCl (Catapres) 0.2 mg PO Q8 PRN PRN Reason: SBP > 140, DBP > 90 Docusate Sodium (Colace) 100 mg PO BID [facility] Last Admin: 02/24/19 10:00 Dose: 100 mg Enoxaparin Sodium (Lovenox) 40 mg SC DAILY [facility]; Protocol Last Admin: 02/24/19 10:01 Dose: 40 mg Ergocalciferol (Drisdol 50,000 Intl Units Cap) 1 cap PO Q7D [facility] Last Admin: 02/23/19 16:07 Dose: 1 cap Hydrochlorothiazide (Hydrodiuril) 25 mg PO DAILY [facility] Last Admin: 02/24/19 10:00 Dose: 25 mg Clindamycin Phosphate (Cleocin 600mg/50ml D5w) 600 mg in 50 mls @ 50 mls/hr IVPB Q8H [facility]; Protocol Last Admin: 02/24/19 08:41 Dose: 50 mls/hr Ibuprofen (Motrin Tab) 600 mg PO Q6H PRN PRN Reason: Pain, moderate (4-7) Methylprednisolone (Solu-Medrol) 20 mg IVP Q12 [facility] Last Admin: 02/24/19 10:02 Dose: 20 mg Mupirocin (Bactroban Ointment) 0 gm NS TID [facility] Stop: 02/26/19 14:01 Last Admin: 02/24/19 15:08 Dose: 2 appl Nicotine (Nicoderm Cq) 1 patch TD DAILY [facility] Last Admin: 02/24/19 10:03 Dose: Not Given Oxycodone HCl (Oxycodone Immediate Release Tab) 10 mg PO Q6H PRN PRN Reason: Pain, severe (8-10) Pantoprazole Sodium (Protonix Ec Tab) 40 mg PO ACB [facility] Last Admin: 02/24/19 10:03 Dose: 40 mg Polyethylene Glycol (Miralax) 17 gm PO BID [facility] Last Admin: 02/24/19 10:03 Dose: Not Given Sodium Chloride ([place] Nasal [place]) 1 ml NS Q6H PRN PRN Reason: Nasal congestion Physical Exam - Constitutional Appears: Non-toxic, No Acute Distress - Head Exam Head Exam: ATRAUMATIC, NORMAL INSPECTION, NORMOCEPHALIC - Eye Exam Eye Exam: EOMI, Normal appearance, PERRL - ENT Exam Additional comments: EARS : EAC clear , TM wnl AU - no fluid Nose : RSD with erythema / edema anterior head of inferior turbinate , intranasal obstruction noted I & D with 18g needle done under local - no fluid expressed , mass firm / tender Swelling tenderness noted right lateral nose O/P : WNL , Grade 3 tonsils - Neck Exam Neck exam: Positive for: Normal Inspection - Respiratory Exam Respiratory Exam: NORMAL BREATHING PATTERN - Neurological Exam Neurological exam: Alert, Oriented x3 - Psychiatric Exam Psychiatric exam: Normal Affect, Normal Mood - Skin Skin Exam: Dry, Intact, Normal Color, Warm Results - Vital Signs Recent Vital Signs: Last Vital Signs Temp 97.8 F 02/24/19 08:18 Pulse 71 02/24/19 16:01 Resp 26 H 02/24/19 16:01 BP 161/91 H 02/24/19 16:01 Pulse Ox 96 02/23/19 08:30 - Labs Result Diagrams: 02/24/19 05:00 02/24/19 05:00 Labs: Laboratory Results - last 24 hr 02/24/19 02/24/19 05:00 05:00 WBC 10.4 D RBC 4.77 Hgb 13.5 Hct 41.2 MCV 86.4 MCH 28.3 MCHC 32.8 RDW 13.3 Plt Count 128 Neut % (Auto) 86.7 H Lymph % (Auto) 10.2 L [place] % (Auto) 3.0 Eos % (Auto) 0.0 L Baso % (Auto) 0.1 Lymph # (Auto) 1.1 L [place] # (Auto) 0.3 Eos # (Auto) 0.0 Baso # (Auto) 0.01 Absolute Neuts (auto) 9.02 H Sodium 138 Potassium 4.0 Chloride 101 Carbon Dioxide 32 Anion Gap 9 L BUN 14 Creatinine 0.8 Est GFR ( Amer) > 60 Est GFR (Non-Af Amer) > 60 Random Glucose 135 H Calcium 8.8 Total Bilirubin 0.5 AST 211 H D ALT 487 H Alkaline Phosphatase 152 H Total Protein 6.9 Albumin 3.5 Globulin 3.4 Albumin/Globulin Ratio 1.0 L - Imaging and Cardiology CT scan - head Status: Image reviewed by me Assessment & Plan (1) Abdominal pain Status: Acute (2) Ischemic stroke Status: Acute (3) Malignant hypertension Status: Acute (4) Right facial swelling Status: Acute (5) Right sided weakness Status: Acute (6) Chronic pain Status: Acute (7) Elevated blood pressure reading Status: Acute (8) DNS (deviated nasal septum) Status: Acute (9) Cellulitis of sidewall of nose Status: Acute Comment: continue with current antibiotic therapy , add Bactroban intranasally T ID. consider repeat CT scan with IV contrast pending response
--- NOTE | 2019-02-24 20:16 | PN ---
DATE: 02/24/2019 LOCATION: The patient in ICU 128, bed 6. REASON FOR CONSULTATION AND FOLLOWUP: Uncontrolled elevated blood pressure, history of CVA. SUBJECTIVE: The patient came to the emergency room feeling weakness of the right side, but she says that she had previous 2 to 3 strokes weakness before also. The patient's blood pressure at home, according to the patient it was about 200. The patient states that she felt a bump at the right side of the nose and then she felt that her face on the right side was swollen. She complained of blurring of vision. The patient is noncompliant with medication. She was also in [facility] and she was told to go to rehab, but she did not go. The patient denies any chest pain, shortness of breath or palpitation. PHYSICAL EXAMINATION: VITAL SIGNS: Blood pressure 137/91, respirations 18, pulse 76, temperature 97.8. HEENT: Head is normocephalic. Eyes, pupils normal. Conjunctivae normal. Nose and throat normal. NECK: JVP low. Carotids equal. THORAX: AP diameter normal. LUNGS: Clear. CARDIOVASCULAR: S1, S2. ABDOMEN: Soft, nontender. No organomegaly. Bowel sounds normal. EXTREMITIES: No clubbing. No cyanosis. LABORATORY DATA: WBC 10.4, hemoglobin 13.5, hematocrit 41.2, platelet 128. Sodium 138, potassium 4, BUN 14, creatinine 0.8, glucose 135, AST 211, ALT 487, and alkaline phosphatase 152. Protein and albumin normal. The patient had an echocardiogram on 02/23. It showed normal size LV, [id number] concentric left ventricular hypertrophy, ejection fraction 68%, grade 1 abnormal relaxation pattern, mild subvalvular aortic stenosis, mitral regurgitation trace to mild, mild tricuspid regurgitation, mild pulmonary hypertension with RVSP 42 mmHg. DIAGNOSES: Uncontrolled hypertension. The patient has prior cerebrovascular accident, 2 or 3 times, rule out new cerebrovascular accident, hyperlipidemia, anxiety, spondylolisthesis. The patient on aspirin 81 mg daily, clonidine 0.2 mg p.o. every 8 hours p.r.n., clindamycin 600 mg IV every 8 hours, hydrochlorothiazide 25 daily, atorvastatin 40 daily, Lovenox 40 subcutaneous daily, amlodipine 10 daily, Protonix 40 daily, methylprednisolone 20 mg intravenous every 12 hours. The patient on clindamycin for her complaints of nasal infection and swelling of the right side face as per patient. The patient's blood pressure this morning was 137/91. We will continue present therapy and we will follow closely with you. Vikki Gunter MD
[2019-02-24] MEDS: Albuterol 0.083% Inhal Sol (2.5 mg/3 mL) UD INH SCH (20:47)
[2019-02-24] MEDS ORDERED: Morphine 2 mg/ml ISec IVP STA (22:33)
[2019-02-25] MEDS: Clindamycin 600mg/50ml D5W 600 MG/50 ML VIAL IVPB SCH ×3 (01:45→17:42)
[2019-02-25] MEDS: Pantoprazole 40 mg EC Tab PO SCH (07:38)
[2019-02-25] MEDS: oxyCODONE 5 mg Immediate Release Tab PO PRN ×3 (07:41→20:57)
[2019-02-25] MEDS: Albuterol 0.083% Inhal Sol (2.5 mg/3 mL) UD INH SCH ×3 (07:57→20:02)
--- NOTE | 2019-02-25 08:50 | CP.PCM.PN ---
<Paresh Ervin - Last Filed: 02/25/19 13:53> Subjective - Date & Time of Evaluation Date of Evaluation: 02/25/19 Time of Evaluation: 08:47 - Subjective Subjective: Paresh Ervin DO, PGY-1 Hospitalist Progress Note for Dr. Haven Alcazar Patient was seen and examined at bedside this AM. No acute events overnight, however, patient noted to be persistently hypertensive overnight. She remains anxious appearing and intermittently confused/agitated. Patient is no longer endorsing suicidal ideation, stating she just feels like she wants to when she doesn't get her pain meds. Objective - Vital Signs/Intake and Output Vital Signs (last 24 hours): Temp Pulse Resp BP Pulse Ox 97.8 F 75 16 215/116 H 96 02/24/19 08:18 02/25/19 03:24 02/24/19 17:00 02/25/19 03:24 02/23/19 08:30 - Medications Medications: Current Medications Albuterol Sulfate (Albuterol 0.083% Inhal Leyda (2.5 Mg/3 Ml) Ud) 2.5 mg INH TIDRESP [facility] Last Admin: 02/25/19 07:57 Dose: 2.5 mg Alprazolam (Xanax) 1 mg PO Q12 JACKELYN; Protocol Last Admin: 02/24/19 22:05 Dose: 1 mg Amlodipine Besylate (Norvasc) 10 mg PO DAILY [facility] Last Admin: 02/24/19 10:00 Dose: 10 mg Aspirin (Aspirin Chewable) 81 mg PO DAILY [facility] Last Admin: 02/24/19 10:00 Dose: 81 mg Atorvastatin Calcium (Lipitor) 40 mg PO HS [facility] Last Admin: 02/22/19 21:01 Dose: 40 mg Cholecalciferol (Vitamin D) 2,000 intlu PO DAILY [facility] Last Admin: 02/24/19 10:00 Dose: 2,000 intlu Clonidine HCl (Catapres) 0.2 mg PO Q8 PRN PRN Reason: SBP > 140, DBP > 90 Last Admin: 02/25/19 03:24 Dose: 0.2 mg Docusate Sodium (Colace) 100 mg PO BID [facility] Last Admin: 02/24/19 17:01 Dose: 100 mg Enoxaparin Sodium (Lovenox) 40 mg SC DAILY [facility]; Protocol Last Admin: 02/24/19 10:01 Dose: 40 mg Ergocalciferol (Drisdol 50,000 Intl Units Cap) 1 cap PO Q7D [facility] Last Admin: 02/23/19 16:07 Dose: 1 cap Hydrochlorothiazide (Hydrodiuril) 25 mg PO DAILY [facility] Last Admin: 02/24/19 10:00 Dose: 25 mg Clindamycin Phosphate (Cleocin 600mg/50ml D5w) 600 mg in 50 mls @ 50 mls/hr IVPB Q8H [facility]; Protocol Last Admin: 02/25/19 01:45 Dose: 50 mls/hr Ibuprofen (Motrin Tab) 600 mg PO Q6H PRN PRN Reason: Pain, moderate (4-7) Methylprednisolone (Solu-Medrol) 20 mg IVP Q12 [facility] Last Admin: 02/24/19 22:06 Dose: 20 mg Mupirocin (Bactroban Ointment) 0 gm NS TID [facility] Stop: 02/26/19 14:01 Last Admin: 02/24/19 17:01 Dose: 2 appl Nicotine (Nicoderm Cq) 1 patch TD DAILY [facility] Last Admin: 02/24/19 10:03 Dose: Not Given Oxycodone HCl (Oxycodone Immediate Release Tab) 10 mg PO Q6H PRN PRN Reason: Pain, severe (8-10) Last Admin: 02/25/19 07:41 Dose: 10 mg Pantoprazole Sodium (Protonix Ec Tab) 40 mg PO ACB [facility] Last Admin: 02/25/19 07:38 Dose: 40 mg Polyethylene Glycol (Miralax) 17 gm PO BID [facility] Last Admin: 02/24/19 17:02 Dose: Not Given Sodium Chloride ([place] Nasal [place]) 1 ml NS Q6H PRN PRN Reason: Nasal congestion - Labs Labs: 02/24/19 05:00 02/24/19 05:00 PT 12.5 SECONDS (9.4-12.5) 02/22/19 14:00 INR 1.13 02/22/19 14:00 APTT 32.2 Seconds (26.9-38.3) 02/22/19 14:00 - Constitutional Appears: No Acute Distress (no acute respiratory distress, able to protect airway but intermittently confused/agitated), Unkempt, Agitated, Confused - Head Exam Head Exam: ATRAUMATIC, NORMOCEPHALIC - Eye Exam Eye Exam: EOMI, PERRL - ENT Exam ENT Exam: Mucous Membranes Moist - Neck Exam Neck Exam: Full ROM. absent: Lymphadenopathy - Respiratory Exam Respiratory Exam: Clear to Ausculation Bilateral, NORMAL BREATHING PATTERN. absent: Accessory Muscle Use, Rales, Rhonchi, Wheezes, Respiratory Distress - Cardiovascular Exam Cardiovascular Exam: REGULAR RHYTHM, RRR, +S1, +S2. absent: Gallop, Rubs, Murmur - GI/Abdominal Exam GI & Abdominal Exam: Soft, Normal Bowel Sounds. absent: Guarding, Tenderness - Extremities Exam Extremities Exam: Full ROM. absent: Pedal Edema - Back Exam Back Exam: NORMAL INSPECTION - Neurological Exam Neurological Exam: Alert, Awake, Oriented x3 Neuro motor strength exam: Left Upper Extremity: 5, Right Upper Extremity: 2/1, Left Lower Extremity: 5, Right Lower Extremity: 2/1 - Psychiatric Exam Psychiatric exam: Agitated, Anxious - Skin Skin Exam: Dry, Intact, Warm Assessment and Plan - Assessment and Plan (Free Text) Assessment: 53 yo F with PMH of poorly controlled HTN, prior CVA x 3 with residual RUE and RLE weakness admitted for worsened weakness and elevated SBP > 200 and DBP > [address] head was positive for new cerebellar findings and patient was initially admitted to MICU for aggressive BP management on cardene drip. She has since been transferred out of MICU and transitioned to PO agents. Course has been complicated by patient's persistent confusion, aggression, and concern for prior suicidal ideation. Plan: New R sided weakness Code Stroke called in ED CT head with cerebellar hypodense regions likely related to encephalomalacia Patient was initially refusing brain MRI but is now amenable, given increased xanax dose Encouraged patient that brain MRI is needed to adequately visualize any pathology BP was maintained on cardene drip initially in ICU as recommended by neurology Neurology following, all recs appreciated Hypertensive Urgency Likely 2/2 poor medication compliance and/or component of rebound HTN from clonidine Initially controlled with cardene drip, now switched to PO norvasc, cozaar, clonidine, HCTZ Continues to be hypertensive, will add cozaar 50 mg daily to regimen Right nasal swelling Initial CT showed subtle nonspecific inflammatory changes noted in the right nasal and adjacent soft tissues Will get repeat head CT w/IV contrast as recommended by ENT once MRI brain is completed Continue Clindamycin 600 mg IV Q8H and nasal spray PRN ENT following, all recs appreciated Transaminitis Most likely 2/2 end organ dysfunction from hypertensive urgency Trending down s/p cardene drip and addition of other anti-hypertensives Avoid tylenol and other hepatotoxic agents Continue to monitor Chronic opiate dependency [employer] reviewed Last percocet rx was given in November by Dr. Gustafson which is not consistent with patient's history Chronic opiate seeking behavior suspected Will get SW input, f/u additional psychiatry recs Tobacco abuse Nicotine patch Regular patient counseling on importance of cessation Non-compliance with medications Encourage patient on importance of compliance with anti-hypertensive medications F/u additional SW recs Anxiety Xanax increased to 1 mg BID per psychiatry recs Psychiatry following, all recs appreciated DVT/GI PPX: Lovenox/protonix Full Code HHD Monitor on telemetry Patient seen, examined with, and plan discussed with my attending Dr. Haven Ervin D.O. IM Resident PGY-1 Pager: [phone] <Vidhya Alcazar R - Last Filed: 02/25/19 15:32> Objective - Vital Signs/Intake and Output Vital Signs (last 24 hours): Temp Pulse Resp BP Pulse Ox 97.6 F 88 20 131/74 96 02/25/19 12:00 02/25/19 14:00 02/25/19 10:44 02/25/19 13:13 02/25/19 10:44 - Medications Medications: Current Medications Albuterol Sulfate (Albuterol 0.083% Inhal Leyda (2.5 Mg/3 Ml) Ud) 2.5 mg INH TIDRESP [facility] Last Admin: 02/25/19 13:50 Dose: Not Given Alprazolam (Xanax) 1 mg PO BID PRN; Protocol PRN Reason: Anxiety Amlodipine Besylate (Norvasc) 10 mg PO DAILY [facility] Last Admin: 02/25/19 09:45 Dose: 10 mg Aspirin (Aspirin Chewable) 81 mg PO DAILY [facility] Last Admin: 02/25/19 09:42 Dose: 81 mg Atorvastatin Calcium (Lipitor) 40 mg PO HS [facility] Last Admin: 02/22/19 21:01 Dose: 40 mg Cholecalciferol (Vitamin D) 2,000 intlu PO DAILY [facility] Last Admin: 02/25/19 09:47 Dose: 2,000 intlu Clonidine HCl (Catapres) 0.2 mg PO Q8 PRN PRN Reason: SBP > 140, DBP > 90 Last Admin: 02/25/19 03:24 Dose: 0.2 mg Docusate Sodium (Colace) 100 mg PO BID [facility] Last Admin: 02/25/19 09:45 Dose: 100 mg Enoxaparin Sodium (Lovenox) 40 mg SC DAILY [facility]; Protocol Last Admin: 02/25/19 13:03 Dose: 40 mg Ergocalciferol (Drisdol 50,000 Intl Units Cap) 1 cap PO Q7D [facility] Last Admin: 02/23/19 16:07 Dose: 1 cap Hydrochlorothiazide (Hydrodiuril) 25 mg PO DAILY [facility] Last Admin: 02/25/19 09:45 Dose: 25 mg Clindamycin Phosphate (Cleocin 600mg/50ml D5w) 600 mg in 50 mls @ 50 mls/hr IVPB Q8H [facility]; Protocol Last Admin: 02/25/19 10:18 Dose: 50 mls/hr Ibuprofen (Motrin Tab) 600 mg PO Q6H PRN PRN Reason: Pain, moderate (4-7) Last Admin: 02/25/19 13:51 Dose: 600 mg Losartan Potassium (Cozaar) 100 mg PO DAILY [facility] Methylprednisolone (Solu-Medrol) 20 mg IVP Q12 [facility] Last Admin: 02/25/19 09:46 Dose: 20 mg Mupirocin (Bactroban Ointment) 0 gm NS TID [facility] Stop: 02/26/19 14:01 Last Admin: 02/25/19 13:13 Dose: 1 appl Nicotine (Nicoderm Cq) 1 patch TD DAILY [facility] Last Admin: 02/25/19 13:07 Dose: Not Given Oxycodone HCl (Oxycodone Immediate Release Tab) 10 mg PO Q6H PRN PRN Reason: Pain, severe (8-10) Last Admin: 02/25/19 13:41 Dose: 10 mg Pantoprazole Sodium (Protonix Ec Tab) 40 mg PO ACB [facility] Last Admin: 02/25/19 07:38 Dose: 40 mg Polyethylene Glycol (Miralax) 17 gm PO BID [facility] Last Admin: 02/25/19 13:07 Dose: Not Given Sodium Chloride ([place] Nasal [place]) 1 ml NS Q6H PRN PRN Reason: Nasal congestion Last Admin: 02/25/19 09:45 Dose: 1 spr - Labs Labs: 02/24/19 05:00 02/24/19 05:00 PT 12.5 SECONDS (9.4-12.5) 02/22/19 14:00 INR 1.13 02/22/19 14:00 APTT 32.2 Seconds (26.9-38.3) 02/22/19 14:00 Attending/Attestation - Attestation I have personally seen and examined this patient.: Yes I have fully participated in the care of the patient.: Yes I have reviewed all pertinent clinical information, including history, physical exam and plan: Yes Notes (Text): Patient seen and examined by me with resident at approximately 10:40AM on 02/25/19. Case including HPI, physical exam, and assessment and plan discussed with resident. Agree with above with following additions/corrections. Patient is a 53-year-old female past medical history significant for hypertension, previous strokes, spondylolisthesis, anxiety, sleep disorder, hyperlipidemia, and opioid abuse presented to the emergency room with body weakness and difficulty getting out of bed for one day. Patient states that she is feeling ok. Complains of back pain. States that she take Percocet 10mg for 3 years. Patient states she will only get MRI if she is given pain medications. Patient is on oxycodone. Importance of MRI discussed at length with patient. Patient denies any chest pain or shortness of breath. No dizziness. Patient complains of a slight headache. No fevers or chills. No nausea, vomiting, or abdominal pain. No dysuria. Patient states she is had a "small" bowel movement yesterday. Patient is on 1:1. Physical exam: General: Awake and alert lying in bed in no acute distress HEENT: Normocephalic, atraumatic. Extraocular muscles intact. Pupils equal and reactive, no scleral icterus. Oropharynx is pink and moist. No pharyngeal erythema or exudate appreciated. Neck is supple. Cardiovascular: Normal rhythm. Normal S1 and S2. No murmurs, rubs, or gallops a ppreciated Pulmonary: Normal respiratory effort. No rhonchi, rales, or wheezing appreciated Gastrointestinal: Soft, nondistended. Nontender. Positive bowel sounds all 4 quadrants. No guarding. Musculoskeletal: Moves all extremities. No calf tenderness. No edema appreciated. Central nervous system: AAO x3 Dermatologic: Skin warm and dry. Assessment and plan: Patient is a 53-year-old female past medical history significant for hypertension, previous strokes, spondylolisthesis, anxiety, sleep disorder, hyperlipidemia, and opioid abuse presented to the emergency room with body weakness and difficulty getting out of bed for one day. 1. Hypertensive emergency. Hypertensive encephalopathy. Improved. Off cardene drip. Continue Norvasc. Continue HCTZ. Continue clonidine prn. Cozaar added. Cardiology recommendations appreciated. 2-D echo per detention officer showed mild to moderate concentric left ventricular hypertrophy, left ventricular function is normal, left ventricular ejection fraction is within normal range, normal LV segmental wall motion, transmitral Doppler flow pattern is grade 1 abnormal relaxation pattern, there is mild subvalvular aortic stenosis, mitral regurgitation is trace to mild, mild tricuspid regurgitation, mild pulmonary hypertension. 2. Right sided weakness. ?from previous CVA. Neurology recommendations appreciated. Continue PT. Continue ASA. Lipitor on hold secondary to elevated LFTs. Brain MRI pending, patient has been refusing, importance discussed with patient. 2-D echo as above. Head CT 02/22/19 per radiologist showed left greater than right cerebellar hyperdense regions likely related to encephalomalacia, additional regions of moderate nonspecific white matter changes; 11 mm hyperdense focus noted within medial cerebellum of unclear etiology; 1.6 1.1 cm hyperdense fluid density structure noted within the anterior corporis possibly cyst; subtle inflammatory changes noted within the right is on adjacent soft tissues nonspecific. CT angiography of the brain per radiologist showed unremarkable CT angiography of the brain. CT angiography of the neck radiologist showed normal CT angiography of the neck. CTA chest and abdomen radiologist showed no evidence of aneurysm or dissection. 3. Right facial swelling, cellulitis of sidewall of nose. Improving. ENT recommendations appreciated. Continue clindamycin and solumedrol. Continue bactroban intranasally TID. 4. Transaminitis. Improving. Hepatitis panel negative. Continue to monitor. 5. Chronic back pain. Opioid dependence. [employer] reviewed. On oxycodone. Continue PT 6. Anxiety. ?suicidal ideation. Patient no longer threatening suicide for opioids. Patient on 1:1. Psychiatry recommendations appreciated. Efex increased to 2mg AMHS per psychiatrist. 7. History of CVA with right sided weakness. Continue ASA. Lipitor on hold secondary to transaminitis. Continue PT. 8. Constipation. Continue colace and miralax. 9. Tobacco abuse. Counseled on cessation. Continue nicotine patch. 10. GI/DVT prophylaxis. Protonix/Lovenox Case was discussed in detail with the patient regarding current diagnosis, study results, and treatment plan. All questions answered.
[2019-02-25] MEDS: Mupirocin 2% Ointment 15 GM TUBE NS SCH ×3 (09:44→17:40)
[2019-02-25] MEDS: MethylPREDNISolone 40 mg Vial IVP SCH ×2 (09:46→21:01)
[2019-02-25] MEDS: Cholecalciferol 1,000 INTLU TAB PO SCH (09:47)
[2019-02-25] MEDS: Enoxaparin 40 mg Syringe SC SCH (13:03)
[2019-02-25] MEDS: POLYETHYLENE GLYCOL 3350 17 GM/Dose PACKET PO SCH ×2 (13:07→17:40)
--- NOTE | 2019-02-25 16:37 | PN ---
DATE: 02/25/2019 REASON FOR CONSULTATION AND FOLLOWUP: Cardiac evaluation of uncontrolled hypertension, history of CVA in the past. SUBJECTIVE: The patient denies any chest pain, shortness of breath, or any palpitation. Complained of back pain and wanted Percocet and Xanax. OBJECTIVE GENERAL: Not in apparent distress, lying flat on the bed. VITAL SIGNS: The patient is afebrile, heart rate 56, and blood pressure 157/98. HEENT: PERRLA. Extraocular muscles intact. NECK: Supple. No carotid bruits or thyromegaly. CHEST: Clear to auscultation. HEART: S1 and S2, regular. ABDOMEN: Soft. EXTREMITIES: Clubbing, cyanosis negative. LABORATORY DATA: Blood workup as follows: WBC 10.5, hemoglobin 13, hematocrit 41.2, and platelet count 128. Chemistry shows sodium 130, potassium 4, chloride , carbon dioxide 32, anion gap of 9, BUN 14, and creatinine 0.8. CAT scan of the head on 02/22/2019 showed no intracranial mass, hemorrhoid, or evidence of acute infarct noted. Though they mentioned that they consider the possibility of demyelinating disorder, recommended MRI with gadolinium. The patient underwent head and neck CTA. No evidence of aneurysm or dissection noted. TSH level within normal limit. Total cholesterol of the patient 189, triglycerides 57, LDL 106, and HDL 51. Repeat LDL 86 and HDL 44. IMPRESSION: A 53-year-old obese female, increased body mass index 35 kg/m2, history of hypertension, history of cerebrovascular accident in the past, history of back pain, on Percocet and Xanax, 10 mg Percocet every 6 hour and Xanax as well, admitted with uncontrolled hypertension and transient ischemic attack type of symptoms. So far no evidence of acute stroke noted. The patient's blood pressure is still not well controlled. RECOMMENDATION: We will increase losartan to 100 mg 50 stat and start and 100 from tomorrow. The patient was on clonidine. We will resume back clonidine p.r.n. and continue metoprolol and put hydralazine 10 mg every 6 hours p.r.n. Further recommendation depending on the hospital course. We will follow with you. Thank you Dr. Alcazar for providing us the opportunity in taking care of the patient, Richie Cai. Vikki Lorenz MD
--- NOTE | 2019-02-25 19:16 | CP.PCM.PN ---
Subjective - Date & Time of Evaluation Date of Evaluation: 02/25/19 Time of Evaluation: 05:50 - Subjective Subjective: Patient states right sided nasal pain / facial pain is better Nasal breathing also improved Objective - Vital Signs/Intake and Output Vital Signs (last 24 hours): Temp Pulse Resp BP Pulse Ox 97.6 F 61 20 131/74 96 02/25/19 12:00 02/25/19 18:00 02/25/19 10:44 02/25/19 13:13 02/25/19 10:44 Intake and Output: 02/25/19 02/26/19 18:59 06:59 Intake Total 1300 Output Total 1050 Balance 250 - Medications Medications: Current Medications Albuterol Sulfate (Albuterol 0.083% Inhal Leyda (2.5 Mg/3 Ml) Ud) 2.5 mg INH TIDRESP [facility] Last Admin: 02/25/19 13:50 Dose: Not Given Alprazolam (Xanax) 1 mg PO BID PRN; Protocol PRN Reason: Anxiety Amlodipine Besylate (Norvasc) 10 mg PO DAILY [facility] Last Admin: 02/25/19 09:45 Dose: 10 mg Aspirin (Aspirin Chewable) 81 mg PO DAILY [facility] Last Admin: 02/25/19 09:42 Dose: 81 mg Atorvastatin Calcium (Lipitor) 40 mg PO HS [facility] Last Admin: 02/22/19 21:01 Dose: 40 mg Cholecalciferol (Vitamin D) 2,000 intlu PO DAILY [facility] Last Admin: 02/25/19 09:47 Dose: 2,000 intlu Clonidine HCl (Catapres) 0.2 mg PO Q8 PRN PRN Reason: SBP > 140, DBP > 90 Last Admin: 02/25/19 03:24 Dose: 0.2 mg Docusate Sodium (Colace) 100 mg PO BID [facility] Last Admin: 02/25/19 17:40 Dose: 100 mg Enoxaparin Sodium (Lovenox) 40 mg SC DAILY [facility]; Protocol Last Admin: 02/25/19 13:03 Dose: 40 mg Ergocalciferol (Drisdol 50,000 Intl Units Cap) 1 cap PO Q7D [facility] Last Admin: 02/23/19 16:07 Dose: 1 cap Hydrochlorothiazide (Hydrodiuril) 25 mg PO DAILY [facility] Last Admin: 02/25/19 09:45 Dose: 25 mg Clindamycin Phosphate (Cleocin 600mg/50ml D5w) 600 mg in 50 mls @ 50 mls/hr IVPB Q8H [facility]; Protocol Last Admin: 02/25/19 17:42 Dose: 50 mls/hr Ibuprofen (Motrin Tab) 600 mg PO Q6H PRN PRN Reason: Pain, moderate (4-7) Last Admin: 02/25/19 13:51 Dose: 600 mg Losartan Potassium (Cozaar) 100 mg PO DAILY [facility] Methylprednisolone (Solu-Medrol) 20 mg IVP Q12 [facility] Last Admin: 02/25/19 09:46 Dose: 20 mg Mupirocin (Bactroban Ointment) 0 gm NS TID [facility] Stop: 02/26/19 14:01 Last Admin: 02/25/19 17:40 Dose: 1 appl Nicotine (Nicoderm Cq) 1 patch TD DAILY [facility] Last Admin: 02/25/19 13:07 Dose: Not Given Oxycodone HCl (Oxycodone Immediate Release Tab) 10 mg PO Q6H PRN PRN Reason: Pain, severe (8-10) Last Admin: 02/25/19 13:41 Dose: 10 mg Pantoprazole Sodium (Protonix Ec Tab) 40 mg PO ACB [facility] Last Admin: 02/25/19 07:38 Dose: 40 mg Polyethylene Glycol (Miralax) 17 gm PO BID [facility] Last Admin: 02/25/19 17:40 Dose: 17 gm Sodium Chloride ([place] Nasal [place]) 1 ml NS Q6H PRN PRN Reason: Nasal congestion Last Admin: 02/25/19 09:45 Dose: 1 spr - Labs Labs: 02/24/19 05:00 02/24/19 05:00 PT 12.5 SECONDS (9.4-12.5) 02/22/19 14:00 INR 1.13 02/22/19 14:00 APTT 32.2 Seconds (26.9-38.3) 02/22/19 14:00 - Constitutional Appears: Non-toxic, No Acute Distress - Head Exam Head Exam: ATRAUMATIC, NORMAL INSPECTION, NORMOCEPHALIC - Eye Exam Eye Exam: EOMI, Normal appearance, PERRL - ENT Exam Additional comments: Ears ; WNL Nose - decreased facial edema / tenderness , Right inferior turbinate less edematous , no purulence - airway patent O/P - wnl - Neck Exam Neck Exam: Normal Inspection - Respiratory Exam Respiratory Exam: NORMAL BREATHING PATTERN Assessment and Plan (1) Abdominal pain Status: Acute (2) Ischemic stroke Status: Acute (3) Malignant hypertension Status: Acute (4) Right facial swelling Assessment & Plan: improving - continue with current antibiotics Status: Acute (5) Right sided weakness Status: Acute (6) Chronic pain Status: Acute (7) Elevated blood pressure reading Status: Acute (8) DNS (deviated nasal septum) Status: Acute (9) Cellulitis of sidewall of nose Assessment & Plan: improving - continue with Bactroban intranasally for 5 more days then DC Patient to follow up as outpatient will reevaluate upon request Status: Acute
--- NOTE | 2019-02-25 21:25 | CON ---
DATE: 02/25/2019 HISTORY OF PRESENT ILLNESS: In short, the patient is a 53-year-old female, self-reported history of bipolar disorder and "severe anxiety." The patient was admitted on the medical site for hypertensive urgency, malignant hypertension. Psych consult was called for evaluation of possible suicidal ideation. The patient was verbalizing thoughts of harming herself in the context of not receiving her pain medication and benzodiazepines. The patient was seen and examined today. Chart reviewed, discussed with the nursing staff. The patient presented to be alert, oriented in self, place, and time. The patient is currently on one-to-one observation because staff at the nighttime put her on one-to-one because of suicidal threats the patient was verbalizing. The patient presented to be irritable and annoyed. The patient was fixated on painkillers as well as benzodiazepines. The patient presented to be poor and unreliable historian. The patient reported that she has history of bipolar disorder, reported that she has history of admission to the psychiatric inpatient unit in [place]. The patient reported that she has history of harming herself; when was asked to give examples, the patient said that she used to slap herself on the face. The patient denied history of suicidal attempt. The patient reported that she suffers from panic disorder "all day long." The patient reported that she has her doctor, Dr. Alcazar, who is prescribing painkillers and benzodiazepines and the patient fills her medication at [facility]. The patient denied that she wanted to harm herself during the interview, but impulses seem to be unpredictable. This designer/writer contacted [facility], phone number [phone]; nobody picked up the phone, most likely pharmacy will be open at 10 a.m., we will call back and confirm medication. The patient reported that she was taking Xanax 2 mg at the morning time and the nighttime and painkillers she is not sure and this is the only medication what she was taking. Urine drug screen was not done in the emergency room. The patient had history of emergency room visits including [place], also [facility] and urine drug screen never done during all these admissions. No psych history at least at [facility]. PHYSICAL EXAMINATION: VITAL SIGNS: Reviewed. Pulse is 75, blood pressure 115/116, respirations 16. MEDICATIONS: Reviewed. The patient was on Xanax 1 mg twice a day. We will increase Xanax to 2 mg twice a day because as per the patient she was taking that dose and discontinue up until this designer/writer will confirm medication from the patient's pharmacy. The patient is on aspirin, Lipitor, vitamin D, clindamycin, Catapres, Colace, Lovenox, Drisdol, Motrin, losartan, Solu-Medrol, Bactroban, Nicoderm, oxycodone 10 mg every 6 hours as needed, Protonix, MiraLax, sodium chloride. LABORATORY DATA: Labs reviewed. Hematology reviewed. Coagulation reviewed. Chemistry reviewed. AST and ALT is going down. Serology reviewed. MENTAL STATUS EXAMINATION: The patient presented to be alert, somewhat irritable and annoyed, intense eye contact. Mood described as not good. Affect was constricted. Thought process concrete. Thought content, the patient denied auditory hallucinations. The patient has history of "seeing things, but I do not remember." The patient adamantly denied thoughts of harming herself or others, denied intent or plan. The patient does not remember when she was saying that she is going to harm herself in the context of pain medication as well as benzodiazepines. Insight and judgment seems to be limited. Impulses are unpredictable as per report, the patient was throwing things and was verbalizing thoughts of harming herself. IMPRESSION: As per the patient's statement, the patient has history of bipolar disorder, but this is questionable. Rule out mood spectrum disorder. The patient reported that she was diagnosed with anxiety disorder. The patient was fixated on benzodiazepines and painkillers addiction and misuse and abuse cannot be excluded. The patient was admitted on the medical site for malignant hypertension. PLAN: We will continue current medication and current management. Xanax was increased to 2 mg twice a day, as per the patient the patient was taking that medication. This designer/writer attempted to call and confirm medication from [facility], phone number [phone], but nobody picked up the phone, most likely this pharmacy will be open at 10 a.m. and we will call back and confirm medication. Meanwhile, pain medication is up to the medical team. There is no need for antipsychotic medication. We will continue one-to-one observation for another couple of hours to make sure that the patient's impulses are well controlled. This designer/writer cannot exclude the patient is misusing and abusing medication, but it is not sure. Medical team is to call for collateral information from the patient's family. Should you have any questions, give me a call back. Thank you very much for letting me participate in care of your patient. Yeimy Alba MD
[2019-02-26] MEDS: Clindamycin 600mg/50ml D5W 600 MG/50 ML VIAL IVPB SCH ×4 (02:33→21:55)
[2019-02-26] MEDS: oxyCODONE 5 mg Immediate Release Tab PO PRN ×3 (05:35→21:52)
[2019-02-26] MEDS: Albuterol 0.083% Inhal Sol (2.5 mg/3 mL) UD INH SCH ×3 (07:17→20:29)
[2019-02-26 07:31] LABS: BASO # 0.02 K/mm3 (0.0-2.0); BASO % 0.2 % (0.0-3.0); EOS # 0.2 (0.0-0.7); EOS % 2.7 % (1.5-5.0); HEMOGLOBIN 13.6 g/dL (12.0-16.0); LYMPH # 2.6 (1.2-3.4); LYMPH % 30.4 % (22.0-35.0); MEAN CELL VOLUME 87.2 fl (80.0-105.0); MEAN CORPUSCULAR HEMOGLOBIN 28.2 pg (25.0-35.0); MEAN CORPUSCULAR HGB CONC 32.3 g/dl (31.0-37.0); MONO # 0.7 (0.1-0.6); MONO % 7.9 % (1.0-6.0); PLATELET COUNT 143 10^3/uL (120.0-450.0); RBC 4.83 10^6/uL (3.5-6.1); RED CELL DISTRIBUTION WIDTH 13.7 % (11.5-14.5); WHITE BLOOD COUNT 8.5 10^3/uL (4.5-11.0)
[2019-02-26 07:45] LABS: ALBUMIN 3.4 g/dL (3.0-4.8); ALT/SGPT 404 U/L (7-56); AST/SGOT 225 U/L (14-36); BLOOD UREA NITROGEN 28 mg/dL (7-21); CALCIUM 8.5 mg/dL (8.4-10.5); GFR NON-AFRICAN AMERICAN 58
[2019-02-26] MEDS: Pantoprazole 40 mg EC Tab PO SCH (08:35)
[2019-02-26] MEDS: Cholecalciferol 1,000 INTLU TAB PO SCH (10:08)
[2019-02-26] MEDS: Enoxaparin 40 mg Syringe SC SCH (10:09)
[2019-02-26] MEDS: POLYETHYLENE GLYCOL 3350 17 GM/Dose PACKET PO SCH ×2 (10:13→17:24)
[2019-02-26] MEDS ORDERED: Potassium Chloride 20 mEq ER Tab PO ONE (11:31)
--- NOTE | 2019-02-26 12:16 | CP.PCM.CON ---
<Néstor Caballero - Last Filed: 02/26/19 15:44> History of Present Illness - History of Present Illness History of Present Illness: PGY6 GI Fellow Consult Note Patient is a 53yo female with PMHx significant for chronic back pain with opiate dependence and abuse, prior CVA x3, HTN who presented to the hospital for right nostril lesion, generalized malaise and weakness. The patient is mostly unc ooperative and only willing to discuss narcotic medication frequency and administration thus history is augmented by EMR. Our service has been consulted as the patient was noted to have elevated LFTs. In the 2-3 days leading up to admission, patient began to notice right facial swelling and a mass in the right nostril. She also developed worsening hypertension with systolic as high as 270 per patient. She subsequently developed migraine headaches and vision changes. Given the constellation of p myron and concern for a CVA, she came to the ED for evaluation. Given her symptoms, a code stroke was called and CT head performed was unremarkable. Initial evaluation revealed hypertensive urgency with blood pressure in the ED documented as 248/143. Second chemistry performed showed AST/ALT 709/681 and they have slowly improved since. She denies any known liver disease history. Denies alcohol abuse or IVDU. Denies opioid abuse or overuse of prescribed medications for back pain. 12 system ROS performed and negative except where stated PMHx: See HPI PSHx: Cholecystectomy FHx: Mother/Sister - CVA; Father - COPD Social: +Tobacco use 1ppd, denies EtOH or illicit drug use Endo: No prior endoscopic evaluations Past Patient History - Infectious Disease Hx of Infectious Diseases: None - Past Social History Smoking Status: Light Smoker < 10 Cigarettes Daily - CARDIAC Hx Hypertension: Yes - PULMONARY Hx Asthma: Yes - NEUROLOGICAL HX Cerebrovascular Accident: Yes (R sided weakness) - PSYCHIATRIC Hx Anxiety: Yes Hx Bipolar Disorder: Yes Hx Schizophrenia: Yes Hx Substance Use: Yes Other/Comment: insomnia - SURGICAL HISTORY Hx Cholecystectomy: Yes - ANESTHESIA Hx Anesthesia: Yes Hx Anesthesia Reactions: No Meds Allergies/Adverse Reactions: Allergies Allergy/AdvReac Type Severity Reaction Status Date / Time No Known Allergies Allergy Verified 03/23/17 16:43 - Medications Medications: Current Medications Albuterol Sulfate (Albuterol 0.083% Inhal Leyda (2.5 Mg/3 Ml) Ud) 2.5 mg INH TIDRESP JACKELYN Last Admin: 02/26/19 07:17 Dose: 2.5 mg Alprazolam (Xanax) 2 mg PO BID PRN; Protocol PRN Reason: Anxiety Amlodipine Besylate (Norvasc) 10 mg PO DAILY [facility] Last Admin: 02/26/19 10:09 Dose: 10 mg Aspirin (Aspirin Chewable) 81 mg PO DAILY [facility] Last Admin: 02/26/19 10:08 Dose: 81 mg Atorvastatin Calcium (Lipitor) 40 mg PO HS [facility] Last Admin: 02/22/19 21:01 Dose: 40 mg Cholecalciferol (Vitamin D) 2,000 intlu PO DAILY [facility] Last Admin: 02/26/19 10:08 Dose: 2,000 intlu Clonidine HCl (Catapres) 0.2 mg PO Q8 PRN PRN Reason: SBP > 140, DBP > 90 Last Admin: 02/25/19 03:24 Dose: 0.2 mg Docusate Sodium (Colace) 100 mg PO BID [facility] Last Admin: 02/26/19 10:08 Dose: 100 mg Enoxaparin Sodium (Lovenox) 40 mg SC DAILY [facility]; Protocol Last Admin: 02/26/19 10:09 Dose: 40 mg Ergocalciferol (Drisdol 50,000 Intl Units Cap) 1 cap PO Q7D [facility] Last Admin: 02/23/19 16:07 Dose: 1 cap Hydrochlorothiazide (Hydrodiuril) 25 mg PO DAILY [facility] Last Admin: 02/26/19 10:09 Dose: 25 mg Ibuprofen (Motrin Tab) 600 mg PO Q6H PRN PRN Reason: Pain, moderate (4-7) Last Admin: 02/26/19 05:38 Dose: 600 mg Losartan Potassium (Cozaar) 100 mg PO DAILY [facility] Last Admin: 02/26/19 10:09 Dose: 100 mg Methylprednisolone (Solu-Medrol) 20 mg IVP Q12 [facility] Last Admin: 02/25/19 21:01 Dose: 20 mg Mupirocin (Bactroban Ointment) 0 gm NS TID [facility] Stop: 02/26/19 14:01 Last Admin: 02/25/19 17:40 Dose: 1 appl Nicotine (Nicoderm Cq) 1 patch TD DAILY [facility] Last Admin: 02/25/19 13:07 Dose: Not Given Oxycodone HCl (Oxycodone Immediate Release Tab) 10 mg PO Q6H PRN PRN Reason: Pain, severe (8-10) Last Admin: 02/26/19 05:35 Dose: 10 mg Pantoprazole Sodium (Protonix Ec Tab) 40 mg PO ACB JACKELYN Last Admin: 02/26/19 08:35 Dose: 40 mg Polyethylene Glycol (Miralax) 17 gm PO BID JACKELYN Last Admin: 02/26/19 10:13 Dose: 17 gm Sodium Chloride ([place] Nasal [place]) 1 ml NS Q6H PRN PRN Reason: Nasal congestion Last Admin: 02/25/19 09:45 Dose: 1 spr Physical Exam - Constitutional Appears: No Acute Distress, Chronically Ill - Eye Exam Eye Exam: EOMI, PERRL - ENT Exam ENT Exam: Mucous Membranes Moist - Respiratory Exam Respiratory Exam: Clear to Auscultation Bilateral. absent: Rales, Rhonchi, Wheezes - Cardiovascular Exam Cardiovascular Exam: RRR, +S1, +S2 - GI/Abdominal Exam GI & Abdominal Exam: Normal Bowel Sounds, Soft. absent: Distended, Firm, Guarding, Hernia, Mass, Rigid, Tenderness - Extremities Exam Extremities exam: Positive for: normal inspection. Negative for: pedal edema - Neurological Exam Neurological exam: Alert, Oriented x3 - Psychiatric Exam Psychiatric exam: Agitated, Anxious - Skin Skin Exam: Dry, Warm Results - Vital Signs Recent Vital Signs: Last Vital Signs Temp 98.8 F 02/26/19 06:00 Pulse 69 02/26/19 10:00 Resp 20 02/26/19 06:00 BP 136/86 02/26/19 10:09 Pulse Ox 96 02/26/19 06:00 - Labs Result Diagrams: 02/26/19 07:00 02/26/19 07:00 Labs: Laboratory Results - last 24 hr 02/26/19 02/26/19 07:00 07:00 WBC 8.5 RBC 4.83 Hgb 13.6 Hct 42.1 MCV 87.2 MCH 28.2 MCHC 32.3 RDW 13.7 Plt Count 143 Neut % (Auto) 58.8 Lymph % (Auto) 30.4 [place] % (Auto) 7.9 H Eos % (Auto) 2.7 Baso % (Auto) 0.2 Lymph # (Auto) 2.6 [place] # (Auto) 0.7 H Eos # (Auto) 0.2 Baso # (Auto) 0.02 Absolute Neuts (auto) 4.96 Sodium 138 Potassium 3.8 Chloride 102 Carbon Dioxide 29 Anion Gap 10 BUN 28 H Creatinine 1.0 Est GFR ( Amer) > 60 Est GFR (Non-Af Amer) 58 Random Glucose 92 Calcium 8.5 Total Bilirubin 0.4 AST 225 H ALT 404 H Alkaline Phosphatase 150 H Total Protein 6.8 Albumin 3.4 Globulin 3.4 Albumin/Globulin Ratio 1.0 L Assessment & Plan - Assessment and Plan (Free Text) Assessment: Patient is a 53yo female with PMHx significant for chronic back pain with opiate dependence and abuse, prior CVA x3, HTN who presented to the hospital for generalized malaise and weakness -Abnormal LFTs - hepatocellular pattern -Hypertensive urgency, emergency improved -Right nasal lesion - ? cellulitis -H/O CVA -Opiate dependence Plan: -Suspect elevated LFTs to be 2/2 hypertensive events -Check ultrasound abdomen -Given known history of CVA and elevated LFTs - would also add duplex to R/O portal or hepatic vein occlusion -The possibility of illicit substances or therapeutic misadventure cannot be ruled out - no drug screen available at admission -Hepatitis serologies negative -Check autoimmune serologies - KEELY, AMA, SMA, IgG level -Analgesia per primary team - would avoid tylenol combination therapies for now -EtOH avoidance encouraged -Trend LFTs -Age appropriate colon cancer screening should be offered to the patient as an outpatient - Date & Time Date: 02/26/19 Time: 11:00 <Kathryn De Oliveira - Last Filed: 02/26/19 20:14> Meds - Medications Medications: Current Medications Albuterol Sulfate (Albuterol 0.083% Inhal Leyda (2.5 Mg/3 Ml) Ud) 2.5 mg INH TIDRESP [facility] Last Admin: 02/26/19 13:26 Dose: Not Given Alprazolam (Xanax) 2 mg PO BID PRN; Protocol PRN Reason: Anxiety Amlodipine Besylate (Norvasc) 10 mg PO DAILY [facility] Last Admin: 02/26/19 10:09 Dose: 10 mg Aspirin (Aspirin Chewable) 81 mg PO DAILY [facility] Last Admin: 02/26/19 10:08 Dose: 81 mg Atorvastatin Calcium (Lipitor) 40 mg PO [facility] Last Admin: 02/22/19 21:01 Dose: 40 mg Cholecalciferol (Vitamin D) 2,000 intlu PO DAILY [facility] Last Admin: 02/26/19 10:08 Dose: 2,000 intlu Clonidine HCl (Catapres) 0.2 mg PO Q8 PRN PRN Reason: SBP > 140, DBP > 90 Last Admin: 02/25/19 03:24 Dose: 0.2 mg Docusate Sodium (Colace) 100 mg PO BID [facility] Last Admin: 02/26/19 17:24 Dose: 100 mg Enoxaparin Sodium (Lovenox) 40 mg SC DAILY [facility]; Protocol Last Admin: 02/26/19 10:09 Dose: 40 mg Ergocalciferol (Drisdol 50,000 Intl Units Cap) 1 cap PO Q7D [facility] Last Admin: 02/23/19 16:07 Dose: 1 cap Hydrochlorothiazide (Hydrodiuril) 25 mg PO DAILY [facility] Last Admin: 02/26/19 10:09 Dose: 25 mg Clindamycin Phosphate (Cleocin 600mg/50ml D5w) 600 mg in 50 mls @ 50 mls/hr IVPB Q8H [facility]; Protocol Last Admin: 02/26/19 12:57 Dose: 50 mls/hr Ibuprofen (Motrin Tab) 600 mg PO Q6H PRN PRN Reason: Pain, moderate (4-7) Last Admin: 02/26/19 14:18 Dose: 600 mg Losartan Potassium (Cozaar) 100 mg PO DAILY [facility] Last Admin: 02/26/19 10:09 Dose: 100 mg Methylprednisolone (Solu-Medrol) 20 mg IVP Q12 [facility] Last Admin: 02/26/19 12:23 Dose: 20 mg Nicotine (Nicoderm Cq) 1 patch TD DAILY [facility] Last Admin: 02/26/19 12:23 Dose: Not Given Oxycodone HCl (Oxycodone Immediate Release Tab) 10 mg PO Q6H PRN PRN Reason: Pain, severe (8-10) Last Admin: 02/26/19 14:18 Dose: 10 mg Pantoprazole Sodium (Protonix Ec Tab) 40 mg PO ACB [facility] Last Admin: 02/26/19 08:35 Dose: 40 mg Polyethylene Glycol (Miralax) 17 gm PO BID [facility] Last Admin: 02/26/19 17:24 Dose: 17 gm Sodium Chloride ([place] Nasal [place]) 1 ml NS Q6H PRN PRN Reason: Nasal congestion Last Admin: 02/25/19 09:45 Dose: 1 spr Results - Vital Signs Recent Vital Signs: Last Vital Signs Temp 97.7 F 02/26/19 17:20 Pulse 63 02/26/19 17:20 Resp 20 02/26/19 17:20 BP 157/89 H 02/26/19 17:20 Pulse Ox 96 02/26/19 17:20 - Labs Result Diagrams: 02/26/19 07:00 02/26/19 07:00 Labs: Laboratory Results - last 24 hr 02/26/19 02/26/19 07:00 07:00 WBC 8.5 RBC 4.83 Hgb 13.6 Hct 42.1 MCV 87.2 MCH 28.2 MCHC 32.3 RDW 13.7 Plt Count 143 Neut % (Auto) 58.8 Lymph % (Auto) 30.4 [place] % (Auto) 7.9 H Eos % (Auto) 2.7 Baso % (Auto) 0.2 Lymph # (Auto) 2.6 [place] # (Auto) 0.7 H Eos # (Auto) 0.2 Baso # (Auto) 0.02 Absolute Neuts (auto) 4.96 Sodium 138 Potassium 3.8 Chloride 102 Carbon Dioxide 29 Anion Gap 10 BUN 28 H Creatinine 1.0 Est GFR ( Amer) > 60 Est GFR (Non-Af Amer) 58 Random Glucose 92 Calcium 8.5 Total Bilirubin 0.4 AST 225 H ALT 404 H Alkaline Phosphatase 150 H Total Protein 6.8 Albumin 3.4 Globulin 3.4 Albumin/Globulin Ratio 1.0 L Attending/Attestation - Attestation I have personally seen and examined this patient.: Yes I have fully participated in the care of the patient.: Yes I have reviewed all pertinent clinical information: Yes Notes (Text): 02/26/19 19:52 I have seen and examined the patient with the GI fellow. This is a 53 yo F with PMH of chronic back pain with opioid dependence and abuse, h/o CVA x 3 and labile HTN who p/w generalized malaise and weakness found to have hypertensive urgency with initial sbp 200s. No prior history of abnormal LFTs or family history of liver disease. Denies any abdominal pain, but notes persistent back pain. Overall, unclear etiology of increased LFTs as her baseline LFTs were completely normal on admission 02/22/19 and became abnormal 02/23/19. Though pt has been persistently hypertensive occasionally to sbps in the 200s (mostly 150s), she has no other evidence of end organ damage (i.e. elevated troponin, stroke or NORA) to suggest that she's had a significant ischemic event causing hepatic ischemia. No evidence of synthetic dysfunction on 02/22 (INR nl) but will recheck INR tmrw. Was given statin on 02/22 and agree to hold this for now. Would also d/c ibuprofen as an inpt as this has been reported to cause elevations in AST/ALT. Check KEELY, anti-smooth muscle ab, anti-mitochondrial ab to r/o autoimmune hepatitis though suspect unlikely. Abdominal u/s reviewed and w/o significant liver pathology, including evidence of cirrhosis (interesting, given she was initially thrombocytopenic on admission and have now normalized). Given her opioid use, also possible that she has taken other medications/drugs which may be contributing, but she denies this as well. Overall downtrending labs which are favorable. Continue to trend.
[2019-02-26] MEDS: Mupirocin 2% Ointment 15 GM TUBE NS SCH ×2 (12:23→14:19)
[2019-02-26] MEDS: MethylPREDNISolone 40 mg Vial IVP SCH ×2 (12:23→21:55)
--- NOTE | 2019-02-26 13:24 | CP.PCM.PN ---
Subjective - Date & Time of Evaluation Date of Evaluation: 02/26/19 Time of Evaluation: 13:18 - Subjective Subjective: Patient seen and examined pt has felt improvement in pain and swelling pt has been using ointment and taking oral abx Objective - Vital Signs/Intake and Output Vital Signs (last 24 hours): Temp Pulse Resp BP Pulse Ox 97.5 F L 66 20 147/91 H 96 02/26/19 12:00 02/26/19 12:00 02/26/19 12:00 02/26/19 12:00 02/26/19 06:00 Intake and Output: 02/26/19 02/26/19 06:59 18:59 Intake Total 170 Output Total 250 Balance -80 - Medications Medications: Current Medications Albuterol Sulfate (Albuterol 0.083% Inhal Leyda (2.5 Mg/3 Ml) Ud) 2.5 mg INH TIDRESP [facility] Last Admin: 02/26/19 07:17 Dose: 2.5 mg Alprazolam (Xanax) 2 mg PO BID PRN; Protocol PRN Reason: Anxiety Amlodipine Besylate (Norvasc) 10 mg PO DAILY [facility] Last Admin: 02/26/19 10:09 Dose: 10 mg Aspirin (Aspirin Chewable) 81 mg PO DAILY [facility] Last Admin: 02/26/19 10:08 Dose: 81 mg Atorvastatin Calcium (Lipitor) 40 mg PO HS [facility] Last Admin: 02/22/19 21:01 Dose: 40 mg Cholecalciferol (Vitamin D) 2,000 intlu PO DAILY [facility] Last Admin: 02/26/19 10:08 Dose: 2,000 intlu Clonidine HCl (Catapres) 0.2 mg PO Q8 PRN PRN Reason: SBP > 140, DBP > 90 Last Admin: 02/25/19 03:24 Dose: 0.2 mg Docusate Sodium (Colace) 100 mg PO BID [facility] Last Admin: 02/26/19 10:08 Dose: 100 mg Enoxaparin Sodium (Lovenox) 40 mg SC DAILY [facility]; Protocol Last Admin: 02/26/19 10:09 Dose: 40 mg Ergocalciferol (Drisdol 50,000 Intl Units Cap) 1 cap PO Q7D [facility] Last Admin: 02/23/19 16:07 Dose: 1 cap Hydrochlorothiazide (Hydrodiuril) 25 mg PO DAILY [facility] Last Admin: 02/26/19 10:09 Dose: 25 mg Clindamycin Phosphate (Cleocin 600mg/50ml D5w) 600 mg in 50 mls @ 50 mls/hr IVPB Q8H [facility]; Protocol Last Admin: 02/26/19 12:57 Dose: 50 mls/hr Ibuprofen (Motrin Tab) 600 mg PO Q6H PRN PRN Reason: Pain, moderate (4-7) Last Admin: 02/26/19 05:38 Dose: 600 mg Losartan Potassium (Cozaar) 100 mg PO DAILY [facility] Last Admin: 02/26/19 10:09 Dose: 100 mg Methylprednisolone (Solu-Medrol) 20 mg IVP Q12 [facility] Last Admin: 02/26/19 12:23 Dose: 20 mg Mupirocin (Bactroban Ointment) 0 gm NS TID [facility] Stop: 02/26/19 14:01 Last Admin: 02/26/19 12:23 Dose: 1 appl Nicotine (Nicoderm Cq) 1 patch TD DAILY [facility] Last Admin: 02/26/19 12:23 Dose: Not Given Oxycodone HCl (Oxycodone Immediate Release Tab) 10 mg PO Q6H PRN PRN Reason: Pain, severe (8-10) Last Admin: 02/26/19 05:35 Dose: 10 mg Pantoprazole Sodium (Protonix Ec Tab) 40 mg PO ACB [facility] Last Admin: 02/26/19 08:35 Dose: 40 mg Polyethylene Glycol (Miralax) 17 gm PO BID [facility] Last Admin: 02/26/19 10:13 Dose: 17 gm Sodium Chloride ([place] Nasal [place]) 1 ml NS Q6H PRN PRN Reason: Nasal congestion Last Admin: 02/25/19 09:45 Dose: 1 spr - Labs Labs: 02/26/19 07:00 02/26/19 07:00 PT 12.5 SECONDS (9.4-12.5) 02/22/19 14:00 INR 1.13 02/22/19 14:00 APTT 32.2 Seconds (26.9-38.3) 02/22/19 14:00 - Head Exam Head Exam: ATRAUMATIC, NORMAL INSPECTION - Eye Exam Eye Exam: EOMI Pupil Exam: NORMAL ACCOMODATION - ENT Exam ENT Exam: Mucous Membranes Moist Additional comments: Nose: mild fullness rt nasal vestibule with mild tenderness to palpation Throat: no erythema/exudate floor of mouth or base of tongue lesions - Neck Exam Neck Exam: absent: Lymphadenopathy - Respiratory Exam Respiratory Exam: NORMAL BREATHING PATTERN Assessment and Plan (1) Cellulitis of sidewall of nose Status: Acute (2) DNS (deviated nasal septum) Status: Acute (3) Malignant hypertension Status: Acute (4) Right facial swelling Status: Acute (5) Right sided weakness Status: Acute (6) Chronic pain Status: Acute (7) Elevated blood pressure reading Status: Acute - Assessment and Plan (Free Text) Plan: Patient to continue ointment and clindamycin. Pt to f/u in office if problem persists
--- NOTE | 2019-02-26 13:33 | CP.PCM.PN ---
<Paresh Ervin - Last Filed: 02/26/19 15:17> Subjective - Date & Time of Evaluation Date of Evaluation: 02/26/19 Time of Evaluation: 07:00 - Subjective Subjective: Paresh Ervin DO, PGY-1 Hospitalist Progress Note for Dr. Haven Alcazar Patient was seen and examined at bedside this AM. Patient remained intermittently hypertensive overnight and continues to be anxious, requesting pain medication frequently. She continues to refuse MRI. She no longer endorses suicidal ideation but remains on 1:1 observation. Objective - Vital Signs/Intake and Output Vital Signs (last 24 hours): Temp Pulse Resp BP Pulse Ox 97.5 F L 66 20 147/91 H 96 02/26/19 12:00 02/26/19 12:00 02/26/19 12:00 02/26/19 12:00 02/26/19 06:00 Intake and Output: 02/26/19 02/26/19 06:59 18:59 Intake Total 170 Output Total 250 Balance -80 - Medications Medications: Current Medications Albuterol Sulfate (Albuterol 0.083% Inhal Leyda (2.5 Mg/3 Ml) Ud) 2.5 mg INH TIDRESP [facility] Last Admin: 02/26/19 13:26 Dose: Not Given Alprazolam (Xanax) 2 mg PO BID PRN; Protocol PRN Reason: Anxiety Amlodipine Besylate (Norvasc) 10 mg PO DAILY [facility] Last Admin: 02/26/19 10:09 Dose: 10 mg Aspirin (Aspirin Chewable) 81 mg PO DAILY [facility] Last Admin: 02/26/19 10:08 Dose: 81 mg Atorvastatin Calcium (Lipitor) 40 mg PO HS [facility] Last Admin: 02/22/19 21:01 Dose: 40 mg Cholecalciferol (Vitamin D) 2,000 intlu PO DAILY [facility] Last Admin: 02/26/19 10:08 Dose: 2,000 intlu Clonidine HCl (Catapres) 0.2 mg PO Q8 PRN PRN Reason: SBP > 140, DBP > 90 Last Admin: 02/25/19 03:24 Dose: 0.2 mg Docusate Sodium (Colace) 100 mg PO BID [facility] Last Admin: 02/26/19 10:08 Dose: 100 mg Enoxaparin Sodium (Lovenox) 40 mg SC DAILY [facility]; Protocol Last Admin: 02/26/19 10:09 Dose: 40 mg Ergocalciferol (Drisdol 50,000 Intl Units Cap) 1 cap PO Q7D [facility] Last Admin: 02/23/19 16:07 Dose: 1 cap Hydrochlorothiazide (Hydrodiuril) 25 mg PO DAILY [facility] Last Admin: 02/26/19 10:09 Dose: 25 mg Clindamycin Phosphate (Cleocin 600mg/50ml D5w) 600 mg in 50 mls @ 50 mls/hr IVPB Q8H [facility]; Protocol Last Admin: 02/26/19 12:57 Dose: 50 mls/hr Ibuprofen (Motrin Tab) 600 mg PO Q6H PRN PRN Reason: Pain, moderate (4-7) Last Admin: 02/26/19 05:38 Dose: 600 mg Losartan Potassium (Cozaar) 100 mg PO DAILY [facility] Last Admin: 02/26/19 10:09 Dose: 100 mg Methylprednisolone (Solu-Medrol) 20 mg IVP Q12 [facility] Last Admin: 02/26/19 12:23 Dose: 20 mg Mupirocin (Bactroban Ointment) 0 gm NS TID [facility] Stop: 02/26/19 14:01 Last Admin: 02/26/19 12:23 Dose: 1 appl Nicotine (Nicoderm Cq) 1 patch TD DAILY [facility] Last Admin: 02/26/19 12:23 Dose: Not Given Oxycodone HCl (Oxycodone Immediate Release Tab) 10 mg PO Q6H PRN PRN Reason: Pain, severe (8-10) Last Admin: 02/26/19 05:35 Dose: 10 mg Pantoprazole Sodium (Protonix Ec Tab) 40 mg PO ACB [facility] Last Admin: 02/26/19 08:35 Dose: 40 mg Polyethylene Glycol (Miralax) 17 gm PO BID [facility] Last Admin: 02/26/19 10:13 Dose: 17 gm Sodium Chloride ([place] Nasal Magnolia) 1 ml NS Q6H PRN PRN Reason: Nasal congestion Last Admin: 02/25/19 09:45 Dose: 1 spr - Labs Labs: 02/26/19 07:00 02/26/19 07:00 PT 12.5 SECONDS (9.4-12.5) 02/22/19 14:00 INR 1.13 02/22/19 14:00 APTT 32.2 Seconds (26.9-38.3) 02/22/19 14:00 - Constitutional Appears: Other (resting comfortably, seen lying on back without apparent distress prior to entering room, but then patient sat up, stated she was unable to lie flat 2/2 severe pain) - Head Exam Head Exam: ATRAUMATIC, NORMOCEPHALIC - Eye Exam Eye Exam: EOMI, PERRL - ENT Exam ENT Exam: Mucous Membranes Moist - Neck Exam Neck Exam: Full ROM. absent: Thyromegaly - Respiratory Exam Respiratory Exam: Clear to Ausculation Bilateral, NORMAL BREATHING PATTERN. absent: Accessory Muscle Use, Rales, Rhonchi, Wheezes, Respiratory Distress - Cardiovascular Exam Cardiovascular Exam: REGULAR RHYTHM, RRR, +S1, +S2. absent: Gallop, Rubs, Murmur - GI/Abdominal Exam GI & Abdominal Exam: Soft, Normal Bowel Sounds. absent: Guarding, Tenderness - Extremities Exam Extremities Exam: Full ROM. absent: Pedal Edema - Back Exam Back Exam: NORMAL INSPECTION - Neurological Exam Neurological Exam: Alert, Awake, Oriented x3 Neuro motor strength exam: Left Upper Extremity: 5, Right Upper Extremity: 2/1, Left Lower Extremity: 5, Right Lower Extremity: 2/1 - Psychiatric Exam Psychiatric exam: Agitated, Anxious - Skin Skin Exam: Dry, Intact, Warm Assessment and Plan - Assessment and Plan (Free Text) Assessment: 53 yo F with PMH of poorly controlled HTN, prior CVA x 3 with residual RUE and RLE weakness admitted for worsened weakness and elevated SBP > 200 and DBP > 120. CT head was positive for new cerebellar findings and patient was initially admitted to MICU for aggressive BP management on cardene drip. She has since been transferred out of MICU and transitioned to PO agents. Course has been complicated by patient's persistent confusion, aggression, and concern for prior suicidal ideation. Patient has also exhibited consistent drug-seeking behavior. Plan: New R sided weakness Patient was called as code stroke in ED CT head revealed cerebellar hypodense regions likely related to encephalomalacia However, it was recommended that patient receive MRI for adequate visualization Patient has been refusing MRI, citing unbearable pain and inability to lye flat Discussed importance of getting MRI again with patient today Will give 1 x dose of morphine 1 mg IVP 15 minutes prior to MRI Will also give patient's regularly scheduled xanax 1 hr prior to MRI Called MRI to confirm approximate time tomorrow Nursing staff informed to give only 1 x dose of morphine as above Neurology following, all recs appreciated Hypertensive Urgency Likely 2/2 poor medication compliance and/or component of rebound HTN from clonidine Initially controlled with cardene drip, now switched to PO norvasc, cozaar, clonidine, HCTZ Continues to have intermittent episodes of HTN overnight Increase cozaar to 100 mg daily Continue to monitor Transaminitis Worsened today Suspect most likely 2/2 end organ dysfunction from hypertensive urgency Continue to avoid tylenol, other hepatotoxic agents Abdominal US and abdominal duplex US recommended per GI Hepatitis panel negative GI consult placed, all recs appreciated Right nasal swelling Initial CT showed subtle nonspecific inflammatory changes noted in the right nasal and adjacent soft tissues On day 5 of clindamycin May get repeat CT head w/IV contrast if patient able to tolerate, but get MRI first ENT recommended outpatient f/u, no other intervention needed at this time Chronic opiate dependency [employer] reviewed Last percocet rx was given in November by Dr. Gustafson which is not consistent with patient's history Will contact Dr. Hill why patient received percocet at that time Tobacco abuse Nicotine patch Regular patient counseling on importance of cessation Non-compliance with medications Encourage patient on importance of compliance with anti-hypertensive medications F/u additional SW recs Anxiety Xanax increased to 1 mg BID per psychiatry recs Psychiatry following, all recs appreciated DVT/GI PPX: Lovenox/protonix Full Code HHD Monitor on telemetry Patient seen, examined with, and plan discussed with my attending Dr. Haven Ervin D.O. IM Resident PGY-1 Pager: [phone] <Vidhya Alcazar R - Last Filed: 02/28/19 17:32> Objective - Vital Signs/Intake and Output Vital Signs (last 24 hours): Temp Pulse Resp BP Pulse Ox 98.1 F 74 20 155/85 H 97 02/28/19 15:14 02/28/19 15:14 02/28/19 15:14 02/28/19 15:14 02/28/19 15:14 Intake and Output: 02/28/19 02/28/19 06:59 18:59 Intake Total 480 Output Total 3 Balance 477 - Medications Medications: Current Medications Albuterol Sulfate (Albuterol 0.083% Inhal Leyda (2.5 Mg/3 Ml) Ud) 2.5 mg INH TIDRESP [facility] Last Admin: 02/28/19 14:09 Dose: 2.5 mg Amlodipine Besylate (Norvasc) 10 mg PO DAILY [facility] Last Admin: 02/28/19 09:11 Dose: 10 mg Amoxicillin (Amoxil 250 Mg/5 Ml Susp) 875 mg PO Q12 [facility]; Protocol Aspirin (Aspirin Chewable) 81 mg PO DAILY [facility] Last Admin: 02/28/19 09:12 Dose: 81 mg Atorvastatin Calcium (Lipitor) 40 mg PO HS [facility] Last Admin: 02/22/19 21:01 Dose: 40 mg Cholecalciferol (Vitamin D) 2,000 intlu PO DAILY [facility] Last Admin: 02/28/19 09:12 Dose: 2,000 intlu Docusate Sodium (Colace) 100 mg PO BID [facility] Last Admin: 02/28/19 09:11 Dose: 100 mg Enoxaparin Sodium (Lovenox) 40 mg SC DAILY [facility]; Protocol Last Admin: 02/28/19 09:11 Dose: 40 mg Ergocalciferol (Drisdol 50,000 Intl Units Cap) 1 cap PO Q7D [facility] Last Admin: 02/23/19 16:07 Dose: 1 cap Hydrochlorothiazide (Hydrodiuril) 25 mg PO DAILY [facility] Last Admin: 02/28/19 09:13 Dose: 25 mg Lorazepam (Ativan) 1 mg PO BID [facility]; Protocol Losartan Potassium (Cozaar) 100 mg PO DAILY [facility] Last Admin: 02/28/19 09:12 Dose: 100 mg Mupirocin (Bactroban Ointment) 0 gm TOP TID [facility] Last Admin: 02/28/19 13:34 Dose: Not Given Nicotine (Nicoderm Cq) 1 patch TD DAILY [facility] Last Admin: 02/28/19 09:13 Dose: 1 patch Oxycodone HCl (Oxycodone Immediate Release Tab) 10 mg PO Q6H PRN PRN Reason: Pain, severe (8-10) Last Admin: 02/28/19 16:15 Dose: 10 mg Pantoprazole Sodium (Protonix Ec Tab) 40 mg PO ACB [facility] Last Admin: 02/28/19 08:46 Dose: 40 mg Polyethylene Glycol (Miralax) 17 gm PO BID [facility] Last Admin: 02/28/19 09:21 Dose: Not Given Sodium Chloride ([place] Nasal Magnolia) 1 ml NS Q6H PRN PRN Reason: Nasal congestion Last Admin: 02/25/19 09:45 Dose: 1 spr - Labs Labs: 02/26/19 07:00 02/28/19 06:45 PT 10.9 SECONDS (9.4-12.5) 02/27/19 07:00 INR 0.96 02/27/19 07:00 APTT 32.2 Seconds (26.9-38.3) 02/22/19 14:00 Attending/Attestation - Attestation I have personally seen and examined this patient.: Yes I have fully participated in the care of the patient.: Yes I have reviewed all pertinent clinical information, including history, physical exam and plan: Yes Notes (Text): Patient seen and examined by me with resident at approximately 10:30AM on 02/26/19. Case including HPI, physical exam, and assessment and plan discussed with resident. Agree with above with following additions/corrections. Patient is a 53-year-old female past medical history significant for hypertension, previous strokes, spondylolisthesis, anxiety, sleep disorder, hyperlipidemia, and opioid abuse presented to the emergency room with body weakness and difficulty getting out of bed for one day. Patient states that "I could be better." Continues to complains of back pain. Agrees to MRI with pain medications. Denies chest pain or shortness of breath. No dizziness. No headaches. No fevers or chills. No nausea, vomiting, or abdominal pain. No dysuria. Physical exam: General: Awake and alert lying in bed in no acute distress HEENT: Normocephalic, atraumatic. Extraocular muscles intact. Pupils equal and reactive, no scleral icterus. Oropharynx is pink and moist. No pharyngeal erythema or exudate appreciated. Neck is supple. Cardiovascular: Normal rhythm. Normal S1 and S2. No murmurs, rubs, or gallops appreciated Pulmonary: Normal respiratory effort. No rhonchi, rales, or wheezing appreciated Gastrointestinal: Soft, nondistended. Nontender. Positive bowel sounds all 4 quadrants. No guarding. Musculoskeletal: Moves all extremities. No calf tenderness. No edema appreciated. Central nervous system: AAO x3 Dermatologic: Skin warm and dry. Assessment and plan: Patient is a 53-year-old female past medical history significant for hypertension, previous strokes, spondylolisthesis, anxiety, sl eep disorder, hyperlipidemia, and opioid abuse presented to the emergency room with body weakness and difficulty getting out of bed for one day. 1. Hypertensive emergency. Hypertensive encephalopathy. Encephalopathy resolved. S/P cardene drip. Continue Norvasc. Continue HCTZ. Continue Cozaar. Cardiology recommendations appreciated. 2-D echo per plant physiologist showed mild to moderate concentric left ventricular hypertrophy, left ventricular function is normal, left ventricular ejection fraction is within normal range, normal LV segmental wall motion, transmitral Doppler flow pattern is grade 1 abnormal relaxation pattern, there is mild subvalvular aortic stenosis, mitral regurgitation is trace to mild, mild tricuspid regurgitation, mild pulmonary hypertension. 2. Right sided weakness. ?from previous CVA. Neurology recommendations appreciated. Continue PT. Continue ASA. Lipitor on hold secondary to elevated LFTs. Brain MRI pending, patient has been refusing, agrees to MRI with pain medications. 2-D echo as above. Head CT 02/22/19 per radiologist showed left greater than right cerebellar hyperdense regions likely related to encephalomalacia, additional regions of moderate nonspecific white matter changes; 11 mm hyperdense focus noted within medial cerebellum of unclear etiology; 1.6 x 1.1 cm hyperdense fluid density structure noted within the anterior corporis possibly cyst; subtle inflammatory changes noted within the right is on adjacent soft tissues nonspecific. CT angiography of the brain per radiologist showed unremarkable CT angiography of the brain. CT angiography of the neck radiologist showed normal CT angiography of the neck. CTA chest and abdomen radiologist showed no evidence of aneurysm or dissection. 3. Right facial swelling, cellulitis of sidewall of nose. Improving. ENT recommendations appreciated. Continue clindamycin and solumedrol. Continue bactroban intranasally TID. 4. Transaminitis. Fluctuating. GI consulted, recommendations appreciated. Abdominal ultrasound and duplex ordered. 5. Chronic back pain. Opioid dependence. [employer] reviewed. On oxycodone from multiple doctors. Discussed with patient. Patient states she has been on the medication for 3 years. Continue PT 6. Anxiety. ?suicidal ideation. Patient no longer threatening suicide for opioids. Patient on 1:1. Psychiatry recommendations appreciated. Xanax increased to 2mg BID prn anxiety per psychiatrist. 7. History of CVA with right sided weakness. Continue ASA. Lipitor on hold secondary to transaminitis. Continue PT. 8. Constipation. Continue colace and miralax. 9. Tobacco abuse. Counseled on cessation. Continue nicotine patch. 10. GI/DVT prophylaxis. Protonix/Lovenox Case was discussed in detail with the patient regarding current diagnosis, study results, and treatment plan. All questions answered.
--- NOTE | 2019-02-26 14:57 | PN ---
DATE: 02/26/2019 SUBJECTIVE: The patient is a 53-year-old -[place] female with reported history of mood spectrum disorder as well as anxiety. The patient was admitted on the medical side for evaluation of possible stroke and malignant hypertension. The patient was seen by this insurance underwriter sales for evaluation of mood. Also the patient was on psychotropic medications. This insurance underwriter sales gave a call to the patient's pharmacy, yesterday. Pharmacist reported that the patient got her medication only [address] Mims, Xanax 1 mg twice a day. Besides that, no record was found. Please see yesterday's note for more detailed information. This insurance underwriter sales evaluated the patient today. The patient did not accept the fact what this insurance underwriter sales tried to explain in regards of the pharmacy and confirmation of the medication. The patient wanted to call her pharmacist herself and this insurance underwriter sales provided the patient with the phone number of the pharmacy and this insurance underwriter sales had prolonged conversation with the patient's pharmacy, [facility]. She reported that the patient was compliant with the medication of 2 mg of Xanax twice a day and prescriber was Dr. Gustafson. The patient never missed any medication. The patient did not show up earlier for her medication and the patient was taking Xanax for at least couple of years. At this point, this insurance underwriter sales will resume Xanax 2 mg twice a day as needed and this insurance underwriter sales explained the patient that she needs to find psychiatrist who will be able to prescribe that medication after discharge from the hospital. The patient verbalized understanding. The stat dose of Xanax was given. PHYSICAL EXAMINATION: VITAL SIGNS: Reviewed. Temperature 98.8, pulse 69, blood pressure 136/86, respiration 20, and saturation is 96%. MEDICATIONS: Reviewed. Xanax resumed, Norvasc, aspirin, Lipitor, vitamin D, Catapres, Colace, Lovenox, Drisdol, Motrin, Cozaar, Solu-Medrol, Bactroban, Nicoderm, oxycodone, Protonix, and MiraLax. LABORATORY DATA: Labs reviewed. Most recent was from today as per Social Service's note. The patient most likely would be referred to Subacute Rehab versus Acute Rehab. The patient agreed with that plan. MENTAL STATUS EXAMINATION: The patient presented to be alert, pleasant, cooperative, at times intense eye contact. Mood described as "I am not crazy. I am just anxious." Affect was constricted, but reactive. Thought process seems to be coherent. Thought content, the patient denied thoughts of harming herself or others, denied intent or plan. Insight and judgment seems to be improving. Impulses are well controlled. IMPRESSION: Rule out anxiety disorder due to general medical condition. PLAN: This insurance underwriter sales provided the patient with information about outpatient programs. Medication was confirmed with the patient's pharmacy. Xanax was resumed. There is no need one-to-one observation for her. This insurance underwriter sales will follow up on this patient and most likely provide the patient with information about outpatient providers. The patient posed no imminent danger to self or others. Should you have any questions, give me a call back. Yeimy Alba MD [facility]
--- NOTE | 2019-02-26 16:09 | PN ---
DATE: 02/26/2019 REASON FOR CONSULTATION AND FOLLOWUP: Cardiac evaluation, uncontrolled hypertension, history of cerebrovascular accident in the past. SUBJECTIVE: The patient denies any chest pain, shortness of breath, but complain of back pain and wanted Percocet. Denies any chest pain. PHYSICAL EXAMINATION: As follows; VITAL SIGNS: Temperature afebrile, heart rate 69, blood pressure 134/86. HEENT: PERRLA. Extraocular muscles are intact. NECK: Supple. No carotid bruits. No thyromegaly. CHEST: Clear to auscultation. HEART: S1 and S2 regular. ABDOMEN: Soft. EXTREMITIES: Clubbing and cyanosis negative. LABORATORY DATA: Blood workup as follows; WBC 8.5, hemoglobin 13.6, hematocrit 42.1, platelet count 143. Chemistry shows sodium 130, potassium 3.8, chloride 102, carbon dioxide 29, anion gap of 10, BUN 28, creatinine 11, AST 225, ALT 405, alkaline phosphatase 150. IMPRESSION AND PLAN: A 53-year-old female obese with a body mass index of 35 kg/m2, history of hypertension, history of cerebrovascular accident in the past, history of back pain on Percocet and Xanax 10 mg of Percocet every 6 hours as well as Xanax. Admitted for uncontrolled hypertension. Symptoms of transient ischemic attack. So for no evidence of acute stroke, blood pressure now well-controlled. Continue losartan 100 mg p.o. daily and continue baby aspirin. Continue atorvastatin. Continue 10 mg of amlodipine. The patient had an echocardiography done day before yesterday read by Dr. Christiansen and that shows left ventricular function is normal. Mild aortic stenosis, trace to mild mitral regurgitation, mild tricuspid regurgitation, mild pulmonary hypertension, RV systolic pressure 42, history of multiple transient ischemic attack type of symptoms in the past because of multiple risk factor suggest stress test as outpatient in 4 to 6 weeks. Aggressive control of blood pressure. Discussed with the patient. We will repeat her laboratory and schedule a stress test as outpatient. We will discontinue telemetry. Thank you Dr. Quiñones for providing us the opportunity in taking care of the patient Richie Cai. Vikki Lorenz MD [facility] # [id number]
--- NOTE | 2019-02-26 16:41 | US ---
PROCEDURE: Portal vein duplex ultrasound. CLINICAL HISTORY: Cirrhosis. Deteriorating liver function. Evaluate for portal vein thrombosis. PHYSICIAN(S): Homero Root M.D. FINDINGS: The hepatic parenchyma is heterogeneous. No obvious mass is seen on these limited images of the liver. The extrahepatic portal vein is patent with hepatopetal flow. The hepatic artery is prominent. The 3 central hepatic veins are patent. The spleen is borderline enlarged. No ascites is appreciated in the upper abdomen IMPRESSION: 1. Patent portal vein with hepatopetal flow.
--- NOTE | 2019-02-26 16:42 | US ---
Date of service: 02/26/2019 HISTORY: elevated LFTs COMPARISON: None. TECHNIQUE: Sonographic evaluation of the abdomen. FINDINGS: LIVER: Measures 16.8 cm. Normal echogenicity of the liver parenchyma. No mass. No intrahepatic bile duct dilatation. GALLBLADDER: Status post cholecystectomy. No abnormality is seen in the gallbladder fossa. COMMON BILE DUCT: Measures 5.1 mm. No stones. No dilatation. PANCREAS: Unremarkable as visualized. No mass. No ductal dilatation. RIGHT KIDNEY: Measures 4.5 x 10.4cm. Normal echogenicity. No calculus, mass, or hydronephrosis. LEFT KIDNEY: Measures 4.6 x 9.4cm. Normal echogenicity. No calculus, mass, or hydronephrosis. SPLEEN: Normal in size and contour. No mass. AORTA: No aneurysmal dilatation. IVC: Unremarkable. OTHER FINDINGS: None. IMPRESSION: No significant or acute findings to account for/ related to the clinical presentation. Additional benign and/or incidental findings described above.
[2019-02-27] MEDS: Clindamycin 600mg/50ml D5W 600 MG/50 ML VIAL IVPB SCH ×3 (04:51→23:06)
[2019-02-27] MEDS: oxyCODONE 5 mg Immediate Release Tab PO PRN ×3 (04:52→23:05)
--- NOTE | 2019-02-27 06:47 | CP.PCM.PN ---
Subjective - Date & Time of Evaluation Date of Evaluation: 02/27/19 Time of Evaluation: 06:30 - Subjective Subjective: Awake, alert, no distress, chronic back pain Reason for consultation and follow up:Cardiac evaluation of uncontrolled hypertension, history of CVA Seen and examined by me and Dr. Lorenz Objective - Vital Signs/Intake and Output Vital Signs (last 24 hours): Temp Pulse Resp BP Pulse Ox 97.9 F 73 20 150/86 97 02/26/19 22:00 02/26/19 22:00 02/26/19 22:00 02/26/19 22:00 02/26/19 22:00 - Medications Medications: Current Medications Albuterol Sulfate (Albuterol 0.083% Inhal Leyda (2.5 Mg/3 Ml) Ud) 2.5 mg INH TIDRESP [facility] Last Admin: 02/26/19 20:29 Dose: Not Given Alprazolam (Xanax) 2 mg PO BID PRN; Protocol PRN Reason: Anxiety Last Admin: 02/26/19 21:56 Dose: 2 mg Amlodipine Besylate (Norvasc) 10 mg PO DAILY [facility] Last Admin: 02/26/19 10:09 Dose: 10 mg Aspirin (Aspirin Chewable) 81 mg PO DAILY [facility] Last Admin: 02/26/19 10:08 Dose: 81 mg Atorvastatin Calcium (Lipitor) 40 mg PO HS [facility] Last Admin: 02/22/19 21:01 Dose: 40 mg Cholecalciferol (Vitamin D) 2,000 intlu PO DAILY [facility] Last Admin: 02/26/19 10:08 Dose: 2,000 intlu Clonidine HCl (Catapres) 0.2 mg PO Q8 PRN PRN Reason: SBP > 140, DBP > 90 Last Admin: 02/25/19 03:24 Dose: 0.2 mg Docusate Sodium (Colace) 100 mg PO BID [facility] Last Admin: 02/26/19 17:24 Dose: 100 mg Enoxaparin Sodium (Lovenox) 40 mg SC DAILY [facility]; Protocol Last Admin: 02/26/19 10:09 Dose: 40 mg Ergocalciferol (Drisdol 50,000 Intl Units Cap) 1 cap PO Q7D [facility] Last Admin: 02/23/19 16:07 Dose: 1 cap Hydrochlorothiazide (Hydrodiuril) 25 mg PO DAILY [facility] Last Admin: 02/26/19 10:09 Dose: 25 mg Clindamycin Phosphate (Cleocin 600mg/50ml D5w) 600 mg in 50 mls @ 50 mls/hr IVPB Q8H [facility]; Protocol Last Admin: 02/27/19 04:51 Dose: 50 mls/hr Losartan Potassium (Cozaar) 100 mg PO DAILY [facility] Last Admin: 02/26/19 10:09 Dose: 100 mg Methylprednisolone (Solu-Medrol) 20 mg IVP Q12 [facility] Last Admin: 02/26/19 21:55 Dose: 20 mg Nicotine (Nicoderm Cq) 1 patch TD DAILY [facility] Last Admin: 02/26/19 12:23 Dose: Not Given Oxycodone HCl (Oxycodone Immediate Release Tab) 10 mg PO Q6H PRN PRN Reason: Pain, severe (8-10) Last Admin: 02/27/19 04:52 Dose: 10 mg Pantoprazole Sodium (Protonix Ec Tab) 40 mg PO ACB [facility] Last Admin: 02/26/19 08:35 Dose: 40 mg Polyethylene Glycol (Miralax) 17 gm PO BID [facility] Last Admin: 02/26/19 17:24 Dose: 17 gm Sodium Chloride ([place] Nasal [place]) 1 ml NS Q6H PRN PRN Reason: Nasal congestion Last Admin: 02/25/19 09:45 Dose: 1 spr - Labs Labs: 02/26/19 07:00 02/26/19 07:00 PT 12.5 SECONDS (9.4-12.5) 02/22/19 14:00 INR 1.13 02/22/19 14:00 APTT 32.2 Seconds (26.9-38.3) 02/22/19 14:00 - Constitutional Appears: Non-toxic, No Acute Distress - Head Exam Head Exam: NORMAL INSPECTION, NORMOCEPHALIC - Eye Exam Eye Exam: Normal appearance Pupil Exam: NORMAL ACCOMODATION - ENT Exam ENT Exam: Mucous Membranes Moist, Normal Exam - Respiratory Exam Respiratory Exam: Decreased Breath Sounds, Clear to Ausculation Bilateral, NORMAL BREATHING PATTERN - Cardiovascular Exam Cardiovascular Exam: +S1, +S2 - GI/Abdominal Exam GI & Abdominal Exam: Soft, Normal Bowel Sounds - Extremities Exam Additional comments: right sided weakness - Neurological Exam Neurological Exam: Alert, Awake, Oriented x3 - Psychiatric Exam Psychiatric exam: Normal Affect, Normal Mood - Skin Skin Exam: Dry, Normal Color, Warm Assessment and Plan - Assessment and Plan (Free Text) Assessment: A 53 year old obese, female who came in to the ER due to generalized weakness. In ER, found to have high SBP. Admitted for uncontrolled blood pressure. History of cerebrovascular accident (right side weakness), hypertension, chronic back pain, on Percocet and Xanax, asthma, anxiety, schizophrenia. History of multiple transient ischemic attacks in the past. Current smoker. Ruled out str trish. No evidence of stroke. Echo done and showed normal LVEF, trace to mild MR, mild aortic stenosis, mild pulmonary hypertension, RVSP 42 mmHg. Due to multiple risk factors, will schedule stress test as outpatient. Controlled hypertension. Cardiac status stable. GI on consult for elevated LFT's. Work up in progress. Plan: No distress Heart rate controlled Blood pressure controlled Cardiac status stable Continue Norvasc 10 mg daily, ASA 81 mg daily, Lipitor 40 mg daily, Catapres 0.2 mg PRN, Hydrodiuril 25 mg daily, Cozaar 100 mg daily, Solumedrol 20 mg BID, Nicoderm patch daily Continue current treatment Lifestyle modification Weight reduction Complete cessation of smoking Will follow up Plan and treatment discussed with Dr. Lorenz
[2019-02-27 07:57] LABS: INR 0.96; PROTHROMBIN TIME 10.9 SECONDS (9.4-12.5)
[2019-02-27] MEDS: Albuterol 0.083% Inhal Sol (2.5 mg/3 mL) UD INH SCH ×3 (07:57→19:34)
[2019-02-27 08:02] LABS: ALBUMIN 3.6 g/dL (3.0-4.8); ALT/SGPT 524 U/L (7-56); AST/SGOT 185 U/L (14-36); BLOOD UREA NITROGEN 25 mg/dL (7-21); CALCIUM 8.8 mg/dL (8.4-10.5); GFR NON-AFRICAN AMERICAN > 60
--- NOTE | 2019-02-27 08:20 | CP.PCM.PN ---
Subjective - Date & Time of Evaluation Date of Evaluation: 02/27/19 Time of Evaluation: 08:16 - Subjective Subjective: pateint seen and examined pt states her breathing has improved and nose is less painful less painful to touch pt complaining of back pain at time of eval still receiving clindamycin, bactroban has stopped she was assured it would be renewed Objective - Vital Signs/Intake and Output Vital Signs (last 24 hours): Temp Pulse Resp BP Pulse Ox 98.2 F 78 18 171/61 H 96 02/27/19 06:00 02/27/19 06:00 02/27/19 06:00 02/27/19 06:00 02/27/19 06:00 - Medications Medications: Current Medications Albuterol Sulfate (Albuterol 0.083% Inhal Leyda (2.5 Mg/3 Ml) Ud) 2.5 mg INH TIDRESP [facility] Last Admin: 02/27/19 07:57 Dose: 2.5 mg Alprazolam (Xanax) 2 mg PO BID PRN; Protocol PRN Reason: Anxiety Last Admin: 02/26/19 21:56 Dose: 2 mg Amlodipine Besylate (Norvasc) 10 mg PO DAILY [facility] Last Admin: 02/26/19 10:09 Dose: 10 mg Aspirin (Aspirin Chewable) 81 mg PO DAILY [facility] Last Admin: 02/26/19 10:08 Dose: 81 mg Atorvastatin Calcium (Lipitor) 40 mg PO HS [facility] Last Admin: 02/22/19 21:01 Dose: 40 mg Cholecalciferol (Vitamin D) 2,000 intlu PO DAILY [facility] Last Admin: 02/26/19 10:08 Dose: 2,000 intlu Docusate Sodium (Colace) 100 mg PO BID [facility] Last Admin: 02/26/19 17:24 Dose: 100 mg Enoxaparin Sodium (Lovenox) 40 mg SC DAILY [facility]; Protocol Last Admin: 02/26/19 10:09 Dose: 40 mg Ergocalciferol (Drisdol 50,000 Intl Units Cap) 1 cap PO Q7D [facility] Last Admin: 02/23/19 16:07 Dose: 1 cap Hydrochlorothiazide (Hydrodiuril) 25 mg PO DAILY [facility] Last Admin: 02/26/19 10:09 Dose: 25 mg Clindamycin Phosphate (Cleocin 600mg/50ml D5w) 600 mg in 50 mls @ 50 mls/hr IVPB Q8H [facility]; Protocol Last Admin: 02/27/19 04:51 Dose: 50 mls/hr Losartan Potassium (Cozaar) 100 mg PO DAILY [facility] Last Admin: 02/26/19 10:09 Dose: 100 mg Methylprednisolone (Solu-Medrol) 20 mg IVP Q12 [facility] Last Admin: 02/26/19 21:55 Dose: 20 mg Mupirocin (Bactroban Ointment) 0 gm TOP TID [facility] Nicotine (Nicoderm Cq) 1 patch TD DAILY [facility] Last Admin: 02/26/19 12:23 Dose: Not Given Oxycodone HCl (Oxycodone Immediate Release Tab) 10 mg PO Q6H PRN PRN Reason: Pain, severe (8-10) Last Admin: 02/27/19 04:52 Dose: 10 mg Pantoprazole Sodium (Protonix Ec Tab) 40 mg PO ACB [facility] Last Admin: 02/26/19 08:35 Dose: 40 mg Polyethylene Glycol (Miralax) 17 gm PO BID [facility] Last Admin: 02/26/19 17:24 Dose: 17 gm Sodium Chloride ([place] Nasal [place]) 1 ml NS Q6H PRN PRN Reason: Nasal congestion Last Admin: 02/25/19 09:45 Dose: 1 spr - Labs Labs: 02/26/19 07:00 02/27/19 07:00 PT 10.9 SECONDS (9.4-12.5) 02/27/19 07:00 INR 0.96 02/27/19 07:00 APTT 32.2 Seconds (26.9-38.3) 02/22/19 14:00 - Constitutional Appears: Well, Non-toxic - Head Exam Head Exam: ATRAUMATIC, NORMAL INSPECTION - Eye Exam Eye Exam: EOMI, Normal appearance Pupil Exam: NORMAL ACCOMODATION - ENT Exam ENT Exam: Mucous Membranes Moist Additional comments: Ears: canals open Nose: swelling rt vestibule improved Throat: wnl no exudate/erythema neck wnl, supple no adenopathy - Neck Exam Neck Exam: Full ROM - Respiratory Exam Respiratory Exam: NORMAL BREATHING PATTERN Assessment and Plan (1) Cellulitis of sidewall of nose Status: Acute (2) DNS (deviated nasal septum) Status: Acute (3) Malignant hypertension Status: Acute (4) Right facial swelling Status: Acute (5) Right sided weakness Status: Acute (6) Chronic pain Status: Acute (7) Elevated blood pressure reading Status: Acute - Assessment and Plan (Free Text) Plan: continue clindamycin and bactroban. Follow, your medical management
[2019-02-27] MEDS ORDERED: Morphine 2 mg/ml ISec IVP PRN ×3 (09:34→09:51)
[2019-02-27] MEDS ORDERED: oxyCODONE 5 mg Immediate Release Tab PO PRN ×2 (09:43→09:52)
[2019-02-27] MEDS: POLYETHYLENE GLYCOL 3350 17 GM/Dose PACKET PO SCH ×2 (11:39→20:14)
[2019-02-27] MEDS: Enoxaparin 40 mg Syringe SC SCH (11:39)
[2019-02-27] MEDS: MethylPREDNISolone 40 mg Vial IVP SCH (11:40)
[2019-02-27] MEDS: Cholecalciferol 1,000 INTLU TAB PO SCH (11:40)
[2019-02-27] MEDS: Mupirocin 2% Ointment 15 GM TUBE TOP SCH ×3 (11:41→20:50)
--- NOTE | 2019-02-27 13:09 | CP.PCM.PN ---
<JasminawaldemarlisaNéstor - Last Filed: 02/27/19 17:56> Subjective - Date & Time of Evaluation Date of Evaluation: 02/27/19 Time of Evaluation: 11:00 - Subjective Subjective: PGY6 GI Fellow Progress Note Patient seen and examined bedside this morning. Despite all attempts, patient continues to bring all conversation back to her pain medications and if she can get more opiate and NSAIDs for her back pain. She denies any new issues overni ght. 12 system ROS performed and negative except where stated Objective - Vital Signs/Intake and Output Vital Signs (last 24 hours): Temp Pulse Resp BP Pulse Ox 98.2 F 78 18 154/90 H 96 02/27/19 06:00 02/27/19 06:00 02/27/19 06:00 02/27/19 11:39 02/27/19 06:00 Intake and Output: 02/27/19 02/27/19 06:59 18:59 Intake Total 170 Output Total 250 Balance -80 - Medications Medications: Current Medications Albuterol Sulfate (Albuterol 0.083% Inhal Leyda (2.5 Mg/3 Ml) Ud) 2.5 mg INH TIDRESP [facility] [place] Last Admin: 02/27/19 07:57 Dose: 2.5 mg Alprazolam (Xanax) 2 mg PO BID PRN; Protocol PRN Reason: Anxiety Last Admin: 02/27/19 08:42 Dose: 2 mg Amlodipine Besylate (Norvasc) 10 mg PO DAILY [facility] [place] Last Admin: 02/27/19 11:39 Dose: 10 mg Aspirin (Aspirin Chewable) 81 mg PO DAILY [facility] Last Admin: 02/27/19 11:40 Dose: 81 mg Atorvastatin Calcium (Lipitor) 40 mg PO HS [facility] Last Admin: 02/22/19 21:01 Dose: 40 mg Cholecalciferol (Vitamin D) 2,000 intlu PO DAILY [facility] Last Admin: 02/27/19 11:40 Dose: 2,000 intlu Docusate Sodium (Colace) 100 mg PO BID [facility] Last Admin: 02/27/19 11:40 Dose: 100 mg Enoxaparin Sodium (Lovenox) 40 mg SC DAILY [facility] [place]; Protocol Last Admin: 02/27/19 11:39 Dose: 40 mg Ergocalciferol (Drisdol 50,000 Intl Units Cap) 1 cap PO Q7D [facility] [place] Last Admin: 02/23/19 16:07 Dose: 1 cap Hydrochlorothiazide (Hydrodiuril) 25 mg PO DAILY [facility] [place] Last Admin: 02/26/19 10:09 Dose: 25 mg Clindamycin Phosphate (Cleocin 600mg/50ml D5w) 600 mg in 50 mls @ 50 mls/hr IVPB Q8H [facility] [place] [place]; Protocol Last Admin: 02/27/19 04:51 Dose: 50 mls/hr Losartan Potassium (Cozaar) 100 mg PO DAILY [facility] [place] Last Admin: 02/26/19 10:09 Dose: 100 mg Methylprednisolone (Solu-Medrol) 20 mg IVP DAILY [facility] [place] Mupirocin (Bactroban Ointment) 0 gm TOP TID [facility] Last Admin: 02/27/19 11:41 Dose: 1 applic Nicotine (Nicoderm Cq) 1 patch TD DAILY [facility] [place] Last Admin: 02/26/19 12:23 Dose: Not Given Oxycodone HCl (Oxycodone Immediate Release Tab) 10 mg PO Q6H PRN PRN Reason: Pain, severe (8-10) Last Admin: 02/27/19 04:52 Dose: 10 mg Oxycodone HCl (Oxycodone Immediate Release Tab) 5 mg PO PRN PRN PRN Reason: Pain, severe (8-10) Pantoprazole Sodium (Protonix Ec Tab) 40 mg PO ACB [facility] Last Admin: 02/26/19 08:35 Dose: 40 mg Polyethylene Glycol (Miralax) 17 gm PO BID [facility] Last Admin: 02/27/19 11:39 Dose: 17 gm Sodium Chloride ([place] Nasal [place]) 1 ml NS Q6H PRN PRN Reason: Nasal congestion Last Admin: 02/25/19 09:45 Dose: 1 spr - Labs Labs: 02/26/19 07:00 02/27/19 07:00 PT 10.9 SECONDS (9.4-12.5) 02/27/19 07:00 INR 0.96 02/27/19 07:00 APTT 32.2 Seconds (26.9-38.3) 02/22/19 14:00 - Constitutional Appears: Non-toxic, No Acute Distress - Eye Exam Eye Exam: EOMI, PERRL - ENT Exam ENT Exam: Mucous Membranes Moist - Respiratory Exam Respiratory Exam: Clear to Ausculation Bilateral. absent: Rales, Rhonchi, Wheezes - Cardiovascular Exam Cardiovascular Exam: RRR, +S1, +S2 - GI/Abdominal Exam GI & Abdominal Exam: Soft, Normal Bowel Sounds. absent: Distended, Firm, Guarding, Rigid, Tenderness, Organomegaly - Extremities Exam Extremities Exam: Normal Inspection. absent: Pedal Edema - Neurological Exam Neurological Exam: Alert, Awake, Oriented x3 - Psychiatric Exam Psychiatric exam: Normal Affect, Normal Mood - Skin Skin Exam: Dry, Warm Assessment and Plan - Assessment and Plan (Free Text) Assessment: Patient is a 53yo female with PMHx significant for chronic back pain with opiate dependence and abuse, prior CVA x3, HTN who presented to the hospital for generalized malaise and weakness -Abnormal LFTs - hepatocellular pattern -Hypertensive urgency, emergency improved -Right nasal lesion - ? cellulitis -H/O CVA -Opiate dependence Plan: -LFT elevation persists with AST/ALT 185/524 today -Liver and vessels unremarkable on U/S with exception of prominent Hepatic artery -Check acetaminophen level -Would hold all acetaminophen/NSAIDs for now -Concern for DILI - D/C statin therapy and recommend altering antibiotic regimen - Clindamycin has potential for hepatocellular dysfunction -Hepatitis serologies negative -Autoimmune serologies pending - KEELY, AMA, SMA -IgG level WNL -EtOH avoidance encouraged -Trend LFTs -Age appropriate colon cancer screening should be offered to the patient as an outpatient <Kathryn De Oliveira - Last Filed: 02/27/19 18:17> Objective - Vital Signs/Intake and Output Vital Signs (last 24 hours): Temp Pulse Resp BP Pulse Ox 98.2 F 78 18 154/90 H 96 02/27/19 06:00 02/27/19 06:00 02/27/19 06:00 02/27/19 11:39 02/27/19 06:00 Intake and Output: 02/27/19 02/27/19 06:59 18:59 Intake Total 170 Output Total 250 Balance -80 - Medications Medications: Current Medications Albuterol Sulfate (Albuterol 0.083% Inhal Leyda (2.5 Mg/3 Ml) Ud) 2.5 mg INH TIDRESP [facility] Last Admin: 02/27/19 14:31 Dose: Not Given Alprazolam (Xanax) 2 mg PO BID PRN; Protocol PRN Reason: Anxiety Last Admin: 02/27/19 08:42 Dose: 2 mg Amlodipine Besylate (Norvasc) 10 mg PO DAILY [facility] [place] Last Admin: 02/27/19 11:39 Dose: 10 mg Aspirin (Aspirin Chewable) 81 mg PO DAILY [facility] [place] Last Admin: 02/27/19 11:40 Dose: 81 mg Atorvastatin Calcium (Lipitor) 40 mg PO HS [facility] [place] Last Admin: 02/22/19 21:01 Dose: 40 mg Cholecalciferol (Vitamin D) 2,000 intlu PO DAILY [facility] [place] Last Admin: 02/27/19 11:40 Dose: 2,000 intlu Docusate Sodium (Colace) 100 mg PO BID [facility] [place] Last Admin: 02/27/19 11:40 Dose: 100 mg Enoxaparin Sodium (Lovenox) 40 mg SC DAILY [facility]; Protocol Last Admin: 02/27/19 11:39 Dose: 40 mg Ergocalciferol (Drisdol 50,000 Intl Units Cap) 1 cap PO Q7D [facility] [place] Last Admin: 02/23/19 16:07 Dose: 1 cap Hydrochlorothiazide (Hydrodiuril) 25 mg PO DAILY [facility] [place] Last Admin: 02/26/19 10:09 Dose: 25 mg Clindamycin Phosphate (Cleocin 600mg/50ml D5w) 600 mg in 50 mls @ 50 mls/hr IVPB Q8H [facility]; Protocol Last Admin: 02/27/19 16:52 Dose: 50 mls/hr Losartan Potassium (Cozaar) 100 mg PO DAILY [facility] [place] Last Admin: 02/27/19 16:51 Dose: 100 mg Methylprednisolone (Solu-Medrol) 20 mg IVP DAILY [facility] [place] Mupirocin (Bactroban Ointment) 0 gm TOP TID [facility] [place] Last Admin: 02/27/19 16:53 Dose: 1 applic Nicotine (Nicoderm Cq) 1 patch TD DAILY [facility] [place] Last Admin: 02/26/19 12:23 Dose: Not Given Oxycodone HCl (Oxycodone Immediate Release Tab) 10 mg PO Q6H PRN PRN Reason: Pain, severe (8-10) Last Admin: 02/27/19 16:51 Dose: 10 mg Pantoprazole Sodium (Protonix Ec Tab) 40 mg PO ACB [facility] Last Admin: 02/26/19 08:35 Dose: 40 mg Polyethylene Glycol (Miralax) 17 gm PO BID [facility] Last Admin: 02/27/19 11:39 Dose: 17 gm Sodium Chloride ([place] Nasal [place]) 1 ml NS Q6H PRN PRN Reason: Nasal congestion Last Admin: 02/25/19 09:45 Dose: 1 spr - Labs Labs: 02/26/19 07:00 02/27/19 07:00 PT 10.9 SECONDS (9.4-12.5) 02/27/19 07:00 INR 0.96 02/27/19 07:00 APTT 32.2 Seconds (26.9-38.3) 02/22/19 14:00 Attending/Attestation - Attestation I have fully participated in the care of the patient.: Yes I have reviewed all pertinent clinical information, including history, physical exam and plan: Yes Notes (Text): 02/27/19 18:15 I have discussed patient care with the GI fellow and agree with the above assessment and plan. LFTs remain elevated. INR ok. Strongly suspect DILI. Would d/c Clindamycin as well. Abdominal imaging ok and autoimmune studies pending.
--- NOTE | 2019-02-27 15:18 | CP.PCM.PN ---
<Paresh Ervin - Last Filed: 02/27/19 15:15> Subjective - Date & Time of Evaluation Date of Evaluation: 02/27/19 Time of Evaluation: 07:00 - Subjective Subjective: Paresh Ervin DO, PGY-1 Hospitalist Progress Note for Dr. Haven Alcazar Patient was seen and examined at bedside this AM. She continues to complain of pain and persistently refused MRI yesterday. Objective - Vital Signs/Intake and Output Vital Signs (last 24 hours): Temp Pulse Resp BP Pulse Ox 98.2 F 78 18 154/90 H 96 02/27/19 06:00 02/27/19 06:00 02/27/19 06:00 02/27/19 11:39 02/27/19 06:00 Intake and Output: 02/27/19 02/27/19 06:59 18:59 Intake Total 170 Output Total 250 Balance -80 - Medications Medications: Current Medications Albuterol Sulfate (Albuterol 0.083% Inhal Leyda (2.5 Mg/3 Ml) Ud) 2.5 mg INH TIDRESP [facility] Last Admin: 02/27/19 14:31 Dose: Not Given Alprazolam (Xanax) 2 mg PO BID PRN; Protocol PRN Reason: Anxiety Last Admin: 02/27/19 08:42 Dose: 2 mg Amlodipine Besylate (Norvasc) 10 mg PO DAILY [facility] Last Admin: 02/27/19 11:39 Dose: 10 mg Aspirin (Aspirin Chewable) 81 mg PO DAILY [facility] Last Admin: 02/27/19 11:40 Dose: 81 mg Atorvastatin Calcium (Lipitor) 40 mg PO HS [facility] Last Admin: 02/22/19 21:01 Dose: 40 mg Cholecalciferol (Vitamin D) 2,000 intlu PO DAILY [facility] Last Admin: 02/27/19 11:40 Dose: 2,000 intlu Docusate Sodium (Colace) 100 mg PO BID [facility] Last Admin: 02/27/19 11:40 Dose: 100 mg Enoxaparin Sodium (Lovenox) 40 mg SC DAILY [facility]; Protocol Last Admin: 02/27/19 11:39 Dose: 40 mg Ergocalciferol (Drisdol 50,000 Intl Units Cap) 1 cap PO Q7D [facility] Last Admin: 02/23/19 16:07 Dose: 1 cap Hydrochlorothiazide (Hydrodiuril) 25 mg PO DAILY [facility] Last Admin: 02/26/19 10:09 Dose: 25 mg Clindamycin Phosphate (Cleocin 600mg/50ml D5w) 600 mg in 50 mls @ 50 mls/hr IVPB Q8H [facility]; Protocol Last Admin: 02/27/19 04:51 Dose: 50 mls/hr Losartan Potassium (Cozaar) 100 mg PO DAILY [facility] Last Admin: 02/26/19 10:09 Dose: 100 mg Methylprednisolone (Solu-Medrol) 20 mg IVP DAILY [facility] Mupirocin (Bactroban Ointment) 0 gm TOP TID [facility] Last Admin: 02/27/19 11:41 Dose: 1 applic Nicotine (Nicoderm Cq) 1 patch TD DAILY [facility] Last Admin: 02/26/19 12:23 Dose: Not Given Oxycodone HCl (Oxycodone Immediate Release Tab) 10 mg PO Q6H PRN PRN Reason: Pain, severe (8-10) Last Admin: 02/27/19 04:52 Dose: 10 mg Pantoprazole Sodium (Protonix Ec Tab) 40 mg PO ACB [facility] Last Admin: 02/26/19 08:35 Dose: 40 mg Polyethylene Glycol (Miralax) 17 gm PO BID [facility] Last Admin: 02/27/19 11:39 Dose: 17 gm Sodium Chloride ([place] Nasal [place]) 1 ml NS Q6H PRN PRN Reason: Nasal congestion Last Admin: 02/25/19 09:45 Dose: 1 spr - Labs Labs: 02/26/19 07:00 02/27/19 07:00 PT 10.9 SECONDS (9.4-12.5) 02/27/19 07:00 INR 0.96 02/27/19 07:00 APTT 32.2 Seconds (26.9-38.3) 02/22/19 14:00 - Constitutional Appears: Non-toxic, No Acute Distress, Other (resting comfortably, seen lying on back without apparent distress prior to entering room, but then patient sat up, stated she was unable to lie flat 2/2 severe pain) - Head Exam Head Exam: ATRAUMATIC, NORMOCEPHALIC - Eye Exam Eye Exam: EOMI, PERRL - ENT Exam ENT Exam: Mucous Membranes Moist - Neck Exam Neck Exam: Full ROM. absent: Lymphadenopathy, Thyromegaly - Respiratory Exam Respiratory Exam: Clear to Ausculation Bilateral, NORMAL BREATHING PATTERN. absent: Accessory Muscle Use, Rales, Rhonchi, Wheezes, Respiratory Distress - Cardiovascular Exam Cardiovascular Exam: REGULAR RHYTHM, RRR, +S1, +S2. absent: Gallop, Rubs, Murmur - GI/Abdominal Exam GI & Abdominal Exam: Soft, Normal Bowel Sounds. absent: Guarding, Tenderness - Extremities Exam Extremities Exam: Full ROM. absent: Pedal Edema - Back Exam Back Exam: NORMAL INSPECTION - Neurological Exam Neurological Exam: Alert, Awake, Oriented x3 Neuro motor strength exam: Left Upper Extremity: 5, Right Upper Extremity: 2/1, Left Lower Extremity: 5, Right Lower Extremity: 2/1 - Psychiatric Exam Psychiatric exam: Agitated, Anxious - Skin Skin Exam: Dry, Intact, Warm Assessment and Plan - Assessment and Plan (Free Text) Assessment: 53 yo F with PMH of poorly controlled HTN, prior CVA x 3 with residual RUE and RLE weakness admitted for worsened weakness and elevated SBP > 200 and DBP > 120. CT head was positive for new cerebellar findings and patient was initially admitted to MICU for aggressive BP management on cardene drip. She has since been transferred out of MICU and transitioned to PO agents. Course has been complicated by patient's persistent confusion, aggression, and concern for prior suicidal ideation. Patient has also exhibited consistent drug-seeking behavior. Plan: New R sided weakness Patient was called as code stroke in ED CT head revealed cerebellar hypodense regions likely related to encephalomalacia Patient continues to refuse MRI despite offering pain medicine After discussion, patient agreed again today 1 mg dose of morphine and 5 mg oxycodone ordered, to be given only fabrication and assembly supervisor to MRI MRI scheduled for this afternoon Neurology following, all recs appreciated Hypertensive Urgency Likely 2/2 poor medication compliance and/or component of rebound HTN from clonidine Improved overnight with increased dose of cozaar Continue norvasc, HCTZ, cozaar Consider nephrology consultation if persistent or worsening Telemetry discontinued per cardiology recs Cardiology following, all recs appreciated Transaminitis Continues to worsen Patient tolerated abd US and abd duplex, no concerning findings Hold all acetaminophen/nsaids for now, statin also held Hepatitis serologies negative AI serologies ordered per GI recs Continue to trend LFTs GI consult placed, all recs appreciated Right nasal swelling Initial CT showed subtle nonspecific inflammatory changes noted in the right nasal and adjacent soft tissues On day 6 of clindamycin Outpatient ENT f/u PRN Chronic opiate dependency Dr. Hill contacted Patient was terminated from the practice as she had a positive drug screen Will continue to advise on importance of abstinence F/u SW recs for cessation programs Tobacco abuse Nicotine patch Regular patient counseling on importance of cessation Non-compliance with medications Encourage patient on importance of compliance with anti-hypertensive medications F/u additional SW recs Anxiety May continue xanax 2 mg BID PRN anxiety per psych recs Psychiatry following, all recs appreciated DVT/GI PPX: Lovenox/protonix Full Code HHD Monitor on med/surg Patient seen, examined with, and plan discussed with my attending Dr. Haven Ervin D.O. IM Resident PGY-1 Pager: [phone] <Vidhya Alcazar R - Last Filed: 03/01/19 07:46> Objective - Vital Signs/Intake and Output Vital Signs (last 24 hours): Temp Pulse Resp BP Pulse Ox 98.1 F 74 20 155/85 H 97 02/28/19 15:14 02/28/19 15:14 02/28/19 15:14 02/28/19 15:14 02/28/19 15:14 Intake and Output: 03/01/19 03/01/19 06:59 18:59 Intake Total 600 Balance 600 - Medications Medications: Current Medications Albuterol Sulfate (Albuterol 0.083% Inhal Leyda (2.5 Mg/3 Ml) Ud) 2.5 mg INH TIDRESP [facility] Last Admin: 03/01/19 07:30 Dose: 2.5 mg Amlodipine Besylate (Norvasc) 10 mg PO DAILY [facility] Last Admin: 02/28/19 09:11 Dose: 10 mg Amoxicillin (Amoxil 250 Mg/5 Ml Susp) 875 mg PO Q12 [facility]; Protocol Last Admin: 02/28/19 22:09 Dose: Not Given Aspirin (Aspirin Chewable) 81 mg PO DAILY [facility] Last Admin: 02/28/19 09:12 Dose: 81 mg Atorvastatin Calcium (Lipitor) 40 mg PO HS [facility] Last Admin: 02/22/19 21:01 Dose: 40 mg Cholecalciferol (Vitamin D) 2,000 intlu PO DAILY [facility] Last Admin: 02/28/19 09:12 Dose: 2,000 intlu Docusate Sodium (Colace) 100 mg PO BID [facility] Last Admin: 02/28/19 18:09 Dose: Not Given Enoxaparin Sodium (Lovenox) 40 mg SC DAILY [facility]; Protocol Last Admin: 02/28/19 09:11 Dose: 40 mg Ergocalciferol (Drisdol 50,000 Intl Units Cap) 1 cap PO Q7D [facility] Last Admin: 02/23/19 16:07 Dose: 1 cap Hydrochlorothiazide (Hydrodiuril) 25 mg PO DAILY [facility] Last Admin: 02/28/19 09:13 Dose: 25 mg Lorazepam (Ativan) 1 mg PO BID [facility]; Protocol Last Admin: 02/28/19 18:12 Dose: 1 mg Losartan Potassium (Cozaar) 100 mg PO DAILY [facility] Last Admin: 02/28/19 09:12 Dose: 100 mg Mupirocin (Bactroban Ointment) 0 gm TOP TID [facility] Last Admin: 02/28/19 18:09 Dose: Not Given Nicotine (Nicoderm Cq) 1 patch TD DAILY [facility] Last Admin: 02/28/19 09:13 Dose: 1 patch Oxycodone HCl (Oxycodone Immediate Release Tab) 10 mg PO Q6H PRN PRN Reason: Pain, severe (8-10) Last Admin: 03/01/19 05:23 Dose: 10 mg Pantoprazole Sodium (Protonix Ec Tab) 40 mg PO ACB [facility] Last Admin: 02/28/19 08:46 Dose: 40 mg Polyethylene Glycol (Miralax) 17 gm PO BID [facility] Last Admin: 02/28/19 18:09 Dose: Not Given Sodium Chloride ([place] Nasal [place]) 1 ml NS Q6H PRN PRN Reason: Nasal congestion Last Admin: 02/25/19 09:45 Dose: 1 spr - Labs Labs: 03/01/19 07:15 02/28/19 06:45 PT 10.9 SECONDS (9.4-12.5) 02/27/19 07:00 INR 0.96 02/27/19 07:00 APTT 32.2 Seconds (26.9-38.3) 02/22/19 14:00 Attending/Attestation - Attestation I have personally seen and examined this patient.: Yes I have fully participated in the care of the patient.: Yes I have reviewed all pertinent clinical information, including history, physical exam and plan: Yes Notes (Text): Patient seen and examined by me with resident at approximately 9:40AM on 02/27/19. Case including HPI, physical exam, and assessment and plan discussed with resident. Agree with above with following additions/corrections. Patient is a 53-year-old female past medical history significant for hypertension, previous strokes, spondylolisthesis, anxiety, sleep disorder, hyperlipidemia, and opioid abuse presented to the emergency room with body weakness and difficulty getting out of bed for one day. Patient states that she feels ok. Still asking or more pain medications. Agrees to MRI brain today with pain medications. Denies chest pain or shortness of breath. No dizziness. No headaches. No fevers or chills. No nausea, vomiting, or abdominal pain. No dysuria. Patient states she is having bowel movements. Physical exam: General: Awake and alert lying in bed in no acute distress HEENT: Normocephalic, atraumatic. Extraocular muscles intact. Pupils equal and reactive, no scleral icterus. Oropharynx is pink and moist. No pharyngeal er ythema or exudate appreciated. Neck is supple. Cardiovascular: Normal rhythm. Normal S1 and S2. No murmurs, rubs, or gallops appreciated Pulmonary: Normal respiratory effort. No rhonchi, rales, or wheezing appreciated Gastrointestinal: Soft, nondistended. Nontender. Positive bowel sounds all 4 quadrants. No guarding. Musculoskeletal: Moves all extremities. No calf tenderness. No edema appreciate d. Central nervous system: AAO x3 Dermatologic: Skin warm and dry. Assessment and plan: Patient is a 53-year-old female past medical history significant for hypertension, previous strokes, spondylolisthesis, anxiety, sleep disorder, hyperlipidemia, and opioid abuse presented to the emergency room with body weakness and difficulty getting out of bed for one day. 1. Hypertensive emergency. Hypertensive encephalopathy resolved. Blood pressure much better controlled. S/P cardene drip. Continue Norvasc. Continue HCTZ. Continue Cozaar. Cardiology recommendations appreciated. 2-D echo per cardiol ogist showed mild to moderate concentric left ventricular hypertrophy, left ventricular function is normal, left ventricular ejection fraction is within normal range, normal LV segmental wall motion, transmitral Doppler flow pattern is grade 1 abnormal relaxation pattern, there is mild subvalvular aortic stenosis, mitral regurgitation is trace to mild, mild tricuspid regurgitation, mild pulmonary hypertension. 2. Right sided weakness. ?from previous CVA. Has been seen moving all extremities and lying on back with no issues. Neurology recommendations appreciated. Continue PT. Continue ASA. Lipitor on hold secondary to elevated LFTs. Brain MRI pending, patient has agreed to getting it today with pain medications. 2-D echo as above. Head CT 02/22/19 per radiologist showed left greater than right cerebellar hyperdense regions likely related to encephalomalacia, additional regions of moderate nonspecific white matter changes; 11 mm hyperdense focus noted within medial cerebellum of unclear etiology; 1.6 x 1.1 cm hyperdense fluid density structure noted within the anterior corporis possibly cyst; subtle inflammatory changes noted within the right is on adjacent soft tissues nonspecific. CT angiography of the brain per radiologist showed unremarkable CT angiography of the brain. CT angiography of the neck radiologist showed normal CT angiography of the neck. CTA chest and abdomen radiologist showed no evidence of aneurysm or dissection. 3. Right facial swelling, cellulitis of sidewall of nose. Appears resolved on exam. ENT recommendations appreciated. Continue clindamycin and solumedrol. Continue bactroban intranasally TID. 4. Transaminitis. Fluctuating. GI consulted, recommendations appreciated. Abdominal ultrasound per radiologist showed no significant or acute findings. Ab dominal duplex per radiologist showed patent portal vein hepatopetal flow. 5. Chronic back pain. Opioid dependence. FILM OR VIDEOTAPE EDITOR reviewed. On oxycodone from multiple doctors. Discussed with patient. Patient states she has been on the medication for 3 years. Continue PT. Patient counseled on drug abuse. 6. Anxiety. ?suicidal ideation. Patient no longer threatening suicide for opioids. Off of 1:1. Psychiatry recommendations appreciated. Xanax increased to 2mg BID prn anxiety per psychiatrist. 7. History of CVA with right sided weakness. Continue ASA. Lipitor on hold secondary to transaminitis. Continue PT. 8. Constipation. Resolved. Continue colace and miralax. 9. Tobacco abuse. Counseled on cessation. Continue nicotine patch. 10. GI/DVT prophylaxis. Protonix/Lovenox Case was discussed in detail with the patient regarding current diagnosis, study results, and treatment plan. All questions answered.
[2019-02-27] MEDS ORDERED: Gadodiamide 287 MG/ML VIAL (15ML) IV ONE (15:58)
--- NOTE | 2019-02-27 16:44 | MRI ---
Date of service: 02/27/2019 PROCEDURE: MRI BRAIN WITH AND WITHOUT CONTRAST HISTORY: abnormal head CT, cerebellar lesions COMPARISON: None available. TECHNIQUE: Multiplanar, multisequence MR images of the brain were obtained with and without intravenous contrast enhancement. FINDINGS: HEMORRHAGE: None DWI: No evidence of an acute or early subacute infarction. BRAIN PARENCHYMA: Multifocal white matter signal changes are identified which are not only periventricular and subcortical but also affect the anterior corpus callosum once again with prominent bilateral frontal horn periventricular white matter hyperintensity on T2 and hypo intensity on T1 weighting. No abnormal intracranial enhancement is appreciated. Demyelination pre-existing in this patient remains a possibility their the age of 63 years without known diagnosis does limit this possibility. There borderline signal abnormalities at this vermis and medial left cerebellar hemisphere which also do not enhance. Much of the white-matter signal changes is likely a function of chronic microangiopathy however this is not a classic age-related neuro degenerative process in total some of white matter findings. No mass effect or suspicious extra-axial fluid collection. Signal throughout the brainstem is unremarkable diffusely. Small chronic lacune right thalamus. ENHANCEMENT: No abnormal intracranial enhancement. VENTRICLES: Unremarkable. No hydrocephalus. CRANIUM: Unremarkable. ORBITS: Grossly unremarkable. PARANASAL SINUSES/MASTOIDS: Clear VASCULAR SYSTEM: Skull base flow voids intact. OTHER FINDINGS: None . IMPRESSION: An element of chronic microangiopathy is a likely finding throughout various subcortical and centrum semiovale white matter spaces as well as the periventricular white matter, this is unlikely to account for the prominent white-matter signal changes at the bilateral frontal periventricular white matter including the corpus callosum anteriorly. Therefore etiologies such as demyelination are questioned as a potential pre-existing diagnosis in this patient. Clinically correlate further. No mass effect, acute or subacute brain infarction. Small chronic lacune right thalamus. Prominent nasopharyngeal soft tissues with [id number] enhancement which may reflect neoplasm. Follow-up ENT consultation advised here.
--- NOTE | 2019-02-27 20:32 | PN ---
DATE: 02/27/2019 SUBJECTIVE: The patient was seen for followup today. The patient presented much better, much calmer. The patient is off one to one. The patient denied feeling depressed or hopeless or helpless. The patient denied thoughts of harming herself or others. Xanax was resumed. The patient is happy about that. The patient is currently not psychotic, not agitated, not aggressive. PHYSICAL EXAMINATION: VITAL SIGNS: Reviewed. Temperature 98.2, pulse is 78, blood pressure 150/70, respirations 18, oxygen saturation is 96. MEDICATIONS: Reviewed. LABORATORY DATA: Reviewed. Microbiology, reviewed. MENTAL STATUS EXAMINATION: The patient presented to be alert and oriented, more pleasant and cooperative. Mood described as "I feel better". Affect was more relaxed and mood congruent. Thought process seems to be coherent and goal-directed. Thought content, the patient denied visual, auditory or tactile hallucinations. Denied paranoid ideation. The patient denied thoughts of harming herself or others, denied intent or plan. Insight and judgment seems to be improving. Impulses are well controlled. IMPRESSION: Self-reported history of depression and anxiety, rule out misuse and abuse painkillers and benzodiazepines. PLAN: Continue current management. Continue current medications. This quality analyst/technical writer provided the patient with information about outpatient programs. If the patient will be going to subacute versus acute rehab, the patient is to be seen by psychiatrist there. The patient posed no imminent dangers to self or others. Discussed with the resident medical officer. This quality analyst/technical writer will sign off. Should you have any questions give me a call back. Yeimy Alba MD
[2019-02-27 22:18] VITALS: RESP 20
[2019-02-28] MEDS: Clindamycin 600mg/50ml D5W 600 MG/50 ML VIAL IVPB SCH (05:05)
[2019-02-28] MEDS: oxyCODONE 5 mg Immediate Release Tab PO PRN (05:06)
[2019-02-28 07:53] LABS: ALB/GLOB RATIO 1.1 (1.1-1.8); ALBUMIN 3.6 g/dL (3.0-4.8); ALT/SGPT 490 U/L (7-56); AST/SGOT 263 U/L (14-36); BLOOD UREA NITROGEN 20 mg/dL (7-21); CALCIUM 8.8 mg/dL (8.4-10.5); GFR NON-AFRICAN AMERICAN > 60
[2019-02-28] MEDS: Albuterol 0.083% Inhal Sol (2.5 mg/3 mL) UD INH SCH ×3 (08:12→20:50)
--- NOTE | 2019-02-28 08:15 | CP.PCM.PN ---
Subjective - Date & Time of Evaluation Date of Evaluation: 02/28/19 Time of Evaluation: 06:50 - Subjective Subjective: Awake, alert, no distress, feels okay Reason for consultation and follow up: Cardiac evaluation of uncontrolled hypertension, history of CVA, chronic back pain Seen and examined by me and Dr. Lorenz Objective - Vital Signs/Intake and Output Vital Signs (last 24 hours): Temp Pulse Resp BP Pulse Ox 98.4 F 72 20 141/74 98 02/27/19 22:00 02/27/19 22:00 02/27/19 22:00 02/27/19 22:00 02/27/19 22:00 Intake and Output: 02/28/19 02/28/19 06:59 18:59 Intake Total 480 Output Total 3 Balance 477 - Medications Medications: Current Medications Albuterol Sulfate (Albuterol 0.083% Inhal Leyda (2.5 Mg/3 Ml) Ud) 2.5 mg INH TIDRESP [facility] Last Admin: 02/28/19 08:12 Dose: 2.5 mg Alprazolam (Xanax) 2 mg PO BID PRN; Protocol PRN Reason: Anxiety Last Admin: 02/27/19 19:19 Dose: 2 mg Amlodipine Besylate (Norvasc) 10 mg PO DAILY [facility] Last Admin: 02/27/19 11:39 Dose: 10 mg Aspirin (Aspirin Chewable) 81 mg PO DAILY [facility] Last Admin: 02/27/19 11:40 Dose: 81 mg Atorvastatin Calcium (Lipitor) 40 mg PO HS [facility] Last Admin: 02/22/19 21:01 Dose: 40 mg Cholecalciferol (Vitamin D) 2,000 intlu PO DAILY [facility] Last Admin: 02/27/19 11:40 Dose: 2,000 intlu Docusate Sodium (Colace) 100 mg PO BID [facility] Last Admin: 02/27/19 19:06 Dose: Not Given Enoxaparin Sodium (Lovenox) 40 mg SC DAILY [facility]; Protocol Last Admin: 02/27/19 11:39 Dose: 40 mg Ergocalciferol (Drisdol 50,000 Intl Units Cap) 1 cap PO Q7D [facility] Last Admin: 02/23/19 16:07 Dose: 1 cap Hydrochlorothiazide (Hydrodiuril) 25 mg PO DAILY [facility] Last Admin: 02/26/19 10:09 Dose: 25 mg Clindamycin Phosphate (Cleocin 600mg/50ml D5w) 600 mg in 50 mls @ 50 mls/hr IVPB Q8H [facility]; Protocol Last Admin: 02/28/19 05:05 Dose: 50 mls/hr Losartan Potassium (Cozaar) 100 mg PO DAILY [facility] Last Admin: 02/27/19 16:51 Dose: 100 mg Methylprednisolone (Solu-Medrol) 20 mg IVP DAILY [facility] Mupirocin (Bactroban Ointment) 0 gm TOP TID [facility] Last Admin: 02/27/19 20:50 Dose: 1 applic Nicotine (Nicoderm Cq) 1 patch TD DAILY [facility] Last Admin: 02/26/19 12:23 Dose: Not Given Oxycodone HCl (Oxycodone Immediate Release Tab) 10 mg PO Q6H PRN PRN Reason: Pain, severe (8-10) Last Admin: 02/28/19 05:06 Dose: 10 mg Pantoprazole Sodium (Protonix Ec Tab) 40 mg PO ACB [facility] Last Admin: 02/26/19 08:35 Dose: 40 mg Polyethylene Glycol (Miralax) 17 gm PO BID [facility] Last Admin: 02/27/19 20:14 Dose: Not Given Sodium Chloride ([place] Nasal [place]) 1 ml NS Q6H PRN PRN Reason: Nasal congestion Last Admin: 02/25/19 09:45 Dose: 1 spr - Labs Labs: 02/26/19 07:00 02/28/19 06:45 PT 10.9 SECONDS (9.4-12.5) 02/27/19 07:00 INR 0.96 02/27/19 07:00 APTT 32.2 Seconds (26.9-38.3) 02/22/19 14:00 Assessment and Plan - Assessment and Plan (Free Text) Assessment: A 53 year old obese, female who came in to the ER due to generalized weakness. In ER, found to have high SBP. Admitted for uncontrolled blood pressure. History of cerebrovascular accident (right side weakness), hypertension, chronic back pain, on Percocet and Xanax, asthma, anxiety, schizophrenia. History of multiple transient ischemic attacks in the past. Current smoker. Ruled out stroke. No evidence of stroke. Echo done and showed normal LVEF, trace to mild MR, mild aortic stenosis, mild pulmonary hypertension, RVSP 42 mmHg. Due to multiple risk factors, will schedule stress test as outpatient. Controlled hypertension. Cardiac status stable. GI on consult for elevated LFT's. Work up in progress.Evaluated by Psychiatry. No further cardiac work up at this time. Out patient stress test. Discharge planning. Plan: No distress Heart rate controlled Blood pressure controlled Cardiac status stable Continue Norvasc 10 mg daily, ASA 81 mg daily, Lipitor 40 mg daily, Catapres 0.2 mg PRN, Hydrodiuril 25 mg daily, Cozaar 100 mg daily, Solumedrol 20 mg BID, Nicoderm patch daily Continue current treatment Lifestyle modification Weight reduction Complete cessation of smoking No further cardiac work up at this time. Out patient stress test. Discharge planning. Will follow up Plan and treatment discussed with Dr. Lorenz
[2019-02-28] MEDS: Pantoprazole 40 mg EC Tab PO SCH (08:46)
[2019-02-28] MEDS: Enoxaparin 40 mg Syringe SC SCH (09:11)
[2019-02-28] MEDS: Cholecalciferol 1,000 INTLU TAB PO SCH (09:12)
[2019-02-28] MEDS: POLYETHYLENE GLYCOL 3350 17 GM/Dose PACKET PO SCH ×3 (09:13→18:09)
[2019-02-28] MEDS: Mupirocin 2% Ointment 15 GM TUBE TOP SCH ×3 (09:13→18:09)
[2019-02-28] MEDS ORDERED: MethylPREDNISolone 40 mg Vial IVP SCH (10:00)
[2019-02-28] MEDS ORDERED: Oxycodone/Acetaminophen 5/325 mg Tab PO PRN (11:37)
--- NOTE | 2019-02-28 13:19 | RAD ---
Date of service: 02/28/2019 PROCEDURE: Left Foot Radiographs. HISTORY: foot pain COMPARISON: None. TECHNIQUE: 3 views obtained. FINDINGS: BONES: Normal. No fracture. JOINTS: Normal. SOFT TISSUES: Normal. OTHER FINDINGS: None. IMPRESSION: Normal left foot radiographs.
--- NOTE | 2019-02-28 13:19 | RAD ---
Date of service: 02/28/2019 PROCEDURE: Right Foot Radiographs. HISTORY: foot pain COMPARISON: None. TECHNIQUE: 3 views obtained. FINDINGS: BONES: Normal. No fracture. JOINTS: Normal. SOFT TISSUES: Normal. OTHER FINDINGS: None. IMPRESSION: Normal right foot radiographs.
--- NOTE | 2019-02-28 14:16 | CP.PCM.PN ---
<JasminawaldemarlisaNéstor - Last Filed: 02/28/19 14:59> Subjective - Date & Time of Evaluation Date of Evaluation: 02/28/19 Time of Evaluation: 08:00 - Subjective Subjective: PGY6 GI Fellow Progress Note Patient seen and examined bedside this morning. The patient states that she has ongoing back pain but admits to some moderate improvement. Denies any abdominal pain presently. No events overnight. 12 system ROS performed and negative except where stated Objective - Vital Signs/Intake and Output Vital Signs (last 24 hours): Temp Pulse Resp BP Pulse Ox 97.6 F 57 L 20 158/79 H 96 02/28/19 06:00 02/28/19 06:00 02/28/19 06:00 02/28/19 09:11 02/28/19 06:00 Intake and Output: 02/28/19 02/28/19 06:59 18:59 Intake Total 480 Output Total 3 Balance 477 - Medications Medications: Current Medications Albuterol Sulfate (Albuterol 0.083% Inhal [place]da (2.5 Mg/3 Ml) Ud) 2.5 mg INH TIDRESP [facility] Last Admin: 02/28/19 08:12 Dose: 2.5 mg Alprazolam (Xanax) 2 mg PO BID PRN; Protocol PRN Reason: Anxiety Last Admin: 02/28/19 09:12 Dose: 2 mg Amlodipine Besylate (Norvasc) 10 mg PO DAILY [facility] Last Admin: 02/28/19 09:11 Dose: 10 mg Amoxicillin/Clavulanate Potassium (Augmentin 875 Mg-125 Mg Tab) 1 tab PO Q12 [facility]; Protocol Stop: 03/09/19 22:00 Aspirin (Aspirin Chewable) 81 mg PO DAILY [facility] Last Admin: 02/28/19 09:12 Dose: 81 mg Atorvastatin Calcium (Lipitor) 40 mg PO HS [facility] Last Admin: 02/22/19 21:01 Dose: 40 mg Cholecalciferol (Vitamin D) 2,000 intlu PO DAILY [facility] Last Admin: 02/28/19 09:12 Dose: 2,000 intlu Docusate Sodium (Colace) 100 mg PO BID [facility] Last Admin: 02/28/19 09:11 Dose: 100 mg Enoxaparin Sodium (Lovenox) 40 mg SC DAILY [facility]; Protocol Last Admin: 02/28/19 09:11 Dose: 40 mg Ergocalciferol (Drisdol 50,000 Intl Units Cap) 1 cap PO Q7D [facility] Last Admin: 02/23/19 16:07 Dose: 1 cap Hydrochlorothiazide (Hydrodiuril) 25 mg PO DAILY [facility] Last Admin: 02/28/19 09:13 Dose: 25 mg Losartan Potassium (Cozaar) 100 mg PO DAILY [facility] Last Admin: 02/28/19 09:12 Dose: 100 mg Methylprednisolone (Solu-Medrol) 20 mg IVP DAILY [facility] Last Admin: 02/28/19 09:12 Dose: 20 mg Mupirocin (Bactroban Ointment) 0 gm TOP TID [facility] Last Admin: 02/28/19 13:34 Dose: Not Given Nicotine (Nicoderm Cq) 1 patch TD DAILY [facility] Last Admin: 02/28/19 09:13 Dose: 1 patch Oxycodone HCl (Oxycodone Immediate Release Tab) 10 mg PO Q6H PRN PRN Reason: Pain, severe (8-10) Pantoprazole Sodium (Protonix Ec Tab) 40 mg PO ACB [facility] Last Admin: 02/28/19 08:46 Dose: 40 mg Polyethylene Glycol (Miralax) 17 gm PO BID [facility] Last Admin: 02/28/19 09:21 Dose: Not Given Sodium Chloride ([place] Nasal [place]) 1 ml NS Q6H PRN PRN Reason: Nasal congestion Last Admin: 02/25/19 09:45 Dose: 1 spr - Labs Labs: 02/26/19 07:00 02/28/19 06:45 PT 10.9 SECONDS (9.4-12.5) 02/27/19 07:00 INR 0.96 02/27/19 07:00 APTT 32.2 Seconds (26.9-38.3) 02/22/19 14:00 - Constitutional Appears: Non-toxic, No Acute Distress - Eye Exam Eye Exam: EOMI, PERRL - ENT Exam ENT Exam: Mucous Membranes Moist - Respiratory Exam Respiratory Exam: Clear to Ausculation Bilateral. absent: Rales, Rhonchi, Wheezes - Cardiovascular Exam Cardiovascular Exam: RRR, +S1, +S2 - GI/Abdominal Exam GI & Abdominal Exam: Soft, Normal Bowel Sounds. absent: Distended, Firm, Guarding, Rigid, Tenderness, Organomegaly - Extremities Exam Extremities Exam: Normal Inspection. absent: Pedal Edema - Neurological Exam Neurological Exam: Alert, Awake, Oriented x3 - Psychiatric Exam Psychiatric exam: Normal Affect, Normal Mood - Skin Skin Exam: Dry, Warm Assessment and Plan - Assessment and Plan (Free Text) Assessment: Patient is a 53yo female with PMHx significant for chronic back pain with opiate dependence and abuse, prior CVA x3, HTN who presented to the hospital for generalized malaise and weakness -Abnormal LFTs - hepatocellular pattern -Hypertensive urgency, emergency improved -Right nasal lesion - ? cellulitis -H/O CVA -Opiate dependence Plan: -Persistent elevation of LFTs with hepatocellular pattern; suspect DILI -At this point, we recommend discontinuation of gentamycin -Patient has received one week of antibiotics for right nare cellulitis - this is no longer visualized on imaging, patient has no nasal discharge, leukocytosis or constitutional findings to suggest ongoing infection -As such, and in setting of persistently elevated LFTs >5 times the ULN, would encourage cessation of all antibiotic therapy -Autoimmune markers are negative (KEELY, AMA, SMA) -Patient to be D/C today - encourage outpatient follow up, given Dr De Oliveira's office information for follow up appointment -Repeat LFTs in 2 weeks -If persistent elevation, will likely require liver biopsy -EtOH avoidance encouraged -Age appropriate colon cancer screening should be offered to the patient as an outpatient <Kathryn De Oliveira - Last Filed: 02/28/19 21:08> Objective - Vital Signs/Intake and Output Vital Signs (last 24 hours): Temp Pulse Resp BP Pulse Ox 98.1 F 74 20 155/85 H 97 02/28/19 15:14 02/28/19 15:14 02/28/19 15:14 02/28/19 15:14 02/28/19 15:14 - Medications Medications: Current Medications Albuterol Sulfate (Albuterol 0.083% Inhal [place] (2.5 Mg/3 Ml) Ud) 2.5 mg INH TIDRESP [facility] Last Admin: 02/28/19 20:50 Dose: Not Given Amlodipine Besylate (Norvasc) 10 mg PO DAILY [facility] Last Admin: 02/28/19 09:11 Dose: 10 mg Amoxicillin (Amoxil 250 Mg/5 Ml Susp) 875 mg PO Q12 [facility]; Protocol Aspirin (Aspirin Chewable) 81 mg PO DAILY [facility] Last Admin: 02/28/19 09:12 Dose: 81 mg Atorvastatin Calcium (Lipitor) 40 mg PO HS [facility] Last Admin: 02/22/19 21:01 Dose: 40 mg Cholecalciferol (Vitamin D) 2,000 intlu PO DAILY [facility] Last Admin: 02/28/19 09:12 Dose: 2,000 intlu Docusate Sodium (Colace) 100 mg PO BID [facility] Last Admin: 02/28/19 18:09 Dose: Not Given Enoxaparin Sodium (Lovenox) 40 mg SC DAILY [facility]; Protocol Last Admin: 02/28/19 09:11 Dose: 40 mg Ergocalciferol (Drisdol 50,000 Intl Units Cap) 1 cap PO Q7D [facility] Last Admin: 02/23/19 16:07 Dose: 1 cap Hydrochlorothiazide (Hydrodiuril) 25 mg PO DAILY [facility] Last Admin: 02/28/19 09:13 Dose: 25 mg Lorazepam (Ativan) 1 mg PO BID [facility]; Protocol Last Admin: 02/28/19 18:12 Dose: 1 mg Losartan Potassium (Cozaar) 100 mg PO DAILY [facility] Last Admin: 02/28/19 09:12 Dose: 100 mg Mupirocin (Bactroban Ointment) 0 gm TOP TID [facility] Last Admin: 02/28/19 18:09 Dose: Not Given Nicotine (Nicoderm Cq) 1 patch TD DAILY [facility] Last Admin: 02/28/19 09:13 Dose: 1 patch Oxycodone HCl (Oxycodone Immediate Release Tab) 10 mg PO Q6H PRN PRN Reason: Pain, severe (8-10) Last Admin: 02/28/19 16:15 Dose: 10 mg Pantoprazole Sodium (Protonix Ec Tab) 40 mg PO ACB [facility] Last Admin: 02/28/19 08:46 Dose: 40 mg Polyethylene Glycol (Miralax) 17 gm PO BID [facility] Last Admin: 02/28/19 18:09 Dose: Not Given Sodium Chloride ([place] Nasal [place]) 1 ml NS Q6H PRN PRN Reason: Nasal congestion Last Admin: 02/25/19 09:45 Dose: 1 spr - Labs Labs: 02/26/19 07:00 02/28/19 06:45 PT 10.9 SECONDS (9.4-12.5) 02/27/19 07:00 INR 0.96 02/27/19 07:00 APTT 32.2 Seconds (26.9-38.3) 02/22/19 14:00 Attending/Attestation - Attestation I have personally seen and examined this patient.: Yes I have fully participated in the care of the patient.: Yes I have reviewed all pertinent clinical information, including history, physical exam and plan: Yes Notes (Text): 02/28/19 21:03 I have seen and examined the pt with the GI fellow. LFTs remain elevated, but ALT minimally decreased. Ibuprofen, Clindamycin and Lipitor d/emmy. Still strongly suspect DILI and as such, would NOT recommend starting any new medications, including antibiotics, as this will complicate clinical course should LFTs remain elevated. It pt planned for d/c, would recommend repeat LFTS in 1wk with INR check. If LFTs remain elevated, may need to consider liver bx as an outpt. Discussed with the pt.
--- NOTE | 2019-02-28 15:10 | CP.PCM.PCO ---
Physician Communication Note - Physician Communication Note Physician Communication Note: Spoke to ICU resident. MRI does not show stroke, chronic changes.
--- NOTE | 2019-02-28 15:18 | CP.PCM.PN ---
<Paresh Ervin - Last Filed: 02/28/19 16:35> Subjective - Date & Time of Evaluation Date of Evaluation: 02/28/19 Time of Evaluation: 07:00 - Subjective Subjective: Paresh Ervin DO, PGY-1 Hospitalist Progress Note for Dr. Haven Alcazar Patient was seen and examined at bedside this AM. She reports continued pain and anxiety but was able to tolerate MRI brain yesterday. She otherwise has no new complaints and had no acute events overnight. Objective - Vital Signs/Intake and Output Vital Signs (last 24 hours): Temp Pulse Resp BP Pulse Ox 98.1 F 74 20 155/85 H 97 02/28/19 15:14 02/28/19 15:14 02/28/19 15:14 02/28/19 15:14 02/28/19 15:14 Intake and Output: 02/28/19 02/28/19 06:59 18:59 Intake Total 480 Output Total 3 Balance 477 - Medications Medications: Current Medications Albuterol Sulfate (Albuterol 0.083% Inhal Leyda (2.5 Mg/3 Ml) Ud) 2.5 mg INH TIDRESP [facility] Last Admin: 02/28/19 14:09 Dose: 2.5 mg Alprazolam (Xanax) 2 mg PO BID PRN; Protocol PRN Reason: Anxiety Last Admin: 02/28/19 09:12 Dose: 2 mg Amlodipine Besylate (Norvasc) 10 mg PO DAILY [facility] Last Admin: 02/28/19 09:11 Dose: 10 mg Amoxicillin (Amoxil 250 Mg/5 Ml Susp) 875 mg PO Q12 [facility]; Protocol Aspirin (Aspirin Chewable) 81 mg PO DAILY [facility] Last Admin: 02/28/19 09:12 Dose: 81 mg Atorvastatin Calcium (Lipitor) 40 mg PO HS [facility] Last Admin: 02/22/19 21:01 Dose: 40 mg Cholecalciferol (Vitamin D) 2,000 intlu PO DAILY [facility] Last Admin: 02/28/19 09:12 Dose: 2,000 intlu Docusate Sodium (Colace) 100 mg PO BID [facility] Last Admin: 02/28/19 09:11 Dose: 100 mg Enoxaparin Sodium (Lovenox) 40 mg SC DAILY [facility]; Protocol Last Admin: 02/28/19 09:11 Dose: 40 mg Ergocalciferol (Drisdol 50,000 Intl Units Cap) 1 cap PO Q7D [facility] Last Admin: 02/23/19 16:07 Dose: 1 cap Hydrochlorothiazide (Hydrodiuril) 25 mg PO DAILY [facility] Last Admin: 02/28/19 09:13 Dose: 25 mg Losartan Potassium (Cozaar) 100 mg PO DAILY [facility] Last Admin: 02/28/19 09:12 Dose: 100 mg Methylprednisolone (Solu-Medrol) 20 mg IVP DAILY [facility] Last Admin: 02/28/19 09:12 Dose: 20 mg Mupirocin (Bactroban Ointment) 0 gm TOP TID [facility] Last Admin: 02/28/19 13:34 Dose: Not Given Nicotine (Nicoderm Cq) 1 patch TD DAILY [facility] Last Admin: 02/28/19 09:13 Dose: 1 patch Oxycodone HCl (Oxycodone Immediate Release Tab) 10 mg PO Q6H PRN PRN Reason: Pain, severe (8-10) Pantoprazole Sodium (Protonix Ec Tab) 40 mg PO ACB [facility] Last Admin: 02/28/19 08:46 Dose: 40 mg Polyethylene Glycol (Miralax) 17 gm PO BID [facility] Last Admin: 02/28/19 09:21 Dose: Not Given Sodium Chloride ([place] Nasal [place]) 1 ml NS Q6H PRN PRN Reason: Nasal congestion Last Admin: 02/25/19 09:45 Dose: 1 spr - Labs Labs: 02/26/19 07:00 02/28/19 06:45 PT 10.9 SECONDS (9.4-12.5) 02/27/19 07:00 INR 0.96 02/27/19 07:00 APTT 32.2 Seconds (26.9-38.3) 02/22/19 14:00 - Constitutional Appears: Non-toxic, No Acute Distress - Head Exam Head Exam: ATRAUMATIC, NORMOCEPHALIC - Eye Exam Eye Exam: EOMI, PERRL Pupil Exam: NORMAL ACCOMODATION - ENT Exam ENT Exam: Mucous Membranes Moist - Neck Exam Neck Exam: Full ROM. absent: Thyromegaly - Respiratory Exam Respiratory Exam: Clear to Ausculation Bilateral, NORMAL BREATHING PATTERN. absent: Accessory Muscle Use, Rales, Rhonchi, Wheezes, Respiratory Distress - Cardiovascular Exam Cardiovascular Exam: REGULAR RHYTHM, RRR, +S1, +S2. absent: Diastolic murmur, Gallop, Rubs, Murmur - GI/Abdominal Exam GI & Abdominal Exam: Soft, Normal Bowel Sounds. absent: Guarding, Tenderness - Extremities Exam Extremities Exam: Full ROM, Pedal Edema - Back Exam Back Exam: NORMAL INSPECTION - Neurological Exam Neurological Exam: Alert, Oriented x3 - Psychiatric Exam Psychiatric exam: Anxious - Skin Skin Exam: Dry, Intact, Normal Color Assessment and Plan - Assessment and Plan (Free Text) Assessment: 53 yo F with PMH of poorly controlled HTN, prior CVA x 3 with residual RUE and RLE weakness admitted for worsened weakness and elevated SBP > 200 and DBP > 120. CT head was positive for new cerebellar findings and patient was initially admitted to MICU for aggressive BP management on cardene drip. She has since been transferred out of MICU and transitioned to PO agents. Course has been complicated by patient's persistent confusion, aggression, and concern for prior suicidal ideation. She had been refusing MRI for days prior to finally receiving the test. She has also had persistently worsening transaminitis. Plan: New R sided weakness Patient was called as code stroke in ED CT head revealed cerebellar hypodense regions likely related to encephalomalacia Patient tolerated MRI yesterday Case and MRI discussed with neurology Per neurology, no additional inpatient w/u is warranted at this time, outpatient f/u only Neurology following, all recs appreciated Prominent [employer] ADMIN soft tissues on MRI Initial CT showed subtle nonspecific inflammatory changes noted in the right nasal and adjacent soft tissues MRI shows additional concerning findings Per ENT, would like to continue amoxicillin Will also require outpatient ENT f/u ENT following, all recs appreciated Hypertensive Urgency Likely 2/2 poor medication compliance and/or component of rebound HTN from clonidine Continue HCTZ, cozaar (higher dose), norvasc Has improved with this regimen Cardiology following, all recs appreciated Transaminitis Continuing to trend upward Hepatic US and abd duplex both negative for concerning findings Per GI, would like to discontinue abx if possible However, ENT would like to continue abx Will switch abx to amoxicillin, and attempt to wean off xanax Will switch to ativan instead and monitor LFTs serially GI consult placed, all recs appreciated Chronic opiate dependency Dr. Hill contacted Patient was terminated from the practice as she had a positive drug screen Will continue to advise on importance of abstinence Continue to attempt to wean off oxycodone F/u SW recs for cessation programs Tobacco abuse Nicotine patch PRN Regular patient counseling on importance of cessation Non-compliance with medications Encourage patient on importance of compliance with anti-hypertensive medications F/u additional SW recs Anxiety Xanax dose increased to 2 mg BID per psychiatry recs Psychiatry following, all recs appreciated DVT/GI PPX: Lovenox/protonix Full Code HHD Monitor on med/surg Patient seen, examined with, and plan discussed with my attending Dr. Haven Ervin D.O. IM Resident PGY-1 Pager: [phone] <Vidhya Alcazar R - Last Filed: 03/01/19 07:54> Objective - Vital Signs/Intake and Output Vital Signs (last 24 hours): Temp Pulse Resp BP Pulse Ox 98.1 F 74 20 155/85 H 97 02/28/19 15:14 02/28/19 15:14 02/28/19 15:14 02/28/19 15:14 02/28/19 15:14 Intake and Output: 03/01/19 03/01/19 06:59 18:59 Intake Total 600 Balance 600 - Medications Medications: Current Medications Albuterol Sulfate (Albuterol 0.083% Inhal Leyda (2.5 Mg/3 Ml) Ud) 2.5 mg INH TIDRESP [facility] Last Admin: 03/01/19 07:30 Dose: 2.5 mg Amlodipine Besylate (Norvasc) 10 mg PO DAILY [facility] Last Admin: 02/28/19 09:11 Dose: 10 mg Amoxicillin (Amoxil 250 Mg/5 Ml Susp) 875 mg PO Q12 [facility]; Protocol Last Admin: 02/28/19 22:09 Dose: Not Given Aspirin (Aspirin Chewable) 81 mg PO DAILY [facility] Last Admin: 02/28/19 09:12 Dose: 81 mg Atorvastatin Calcium (Lipitor) 40 mg PO HS [facility] Last Admin: 02/22/19 21:01 Dose: 40 mg Cholecalciferol (Vitamin D) 2,000 intlu PO DAILY [facility] Last Admin: 02/28/19 09:12 Dose: 2,000 intlu Docusate Sodium (Colace) 100 mg PO BID [facility] Last Admin: 02/28/19 18:09 Dose: Not Given Enoxaparin Sodium (Lovenox) 40 mg SC DAILY [facility]; Protocol Last Admin: 02/28/19 09:11 Dose: 40 mg Ergocalciferol (Drisdol 50,000 Intl Units Cap) 1 cap PO Q7D [facility] Last Admin: 02/23/19 16:07 Dose: 1 cap Hydrochlorothiazide (Hydrodiuril) 25 mg PO DAILY [facility] Last Admin: 02/28/19 09:13 Dose: 25 mg Lorazepam (Ativan) 1 mg PO BID [facility]; Protocol Last Admin: 02/28/19 18:12 Dose: 1 mg Losartan Potassium (Cozaar) 100 mg PO DAILY [facility] Last Admin: 02/28/19 09:12 Dose: 100 mg Mupirocin (Bactroban Ointment) 0 gm TOP TID [facility] Last Admin: 02/28/19 18:09 Dose: Not Given Nicotine (Nicoderm Cq) 1 patch TD DAILY [facility] Last Admin: 02/28/19 09:13 Dose: 1 patch Oxycodone HCl (Oxycodone Immediate Release Tab) 10 mg PO Q6H PRN PRN Reason: Pain, severe (8-10) Last Admin: 03/01/19 05:23 Dose: 10 mg Pantoprazole Sodium (Protonix Ec Tab) 40 mg PO ACB [facility] Last Admin: 02/28/19 08:46 Dose: 40 mg Polyethylene Glycol (Miralax) 17 gm PO BID [facility] Last Admin: 02/28/19 18:09 Dose: Not Given Sodium Chloride ([place] Nasal [place]) 1 ml NS Q6H PRN PRN Reason: Nasal congestion Last Admin: 02/25/19 09:45 Dose: 1 spr - Labs Labs: 03/01/19 07:15 02/28/19 06:45 PT 10.9 SECONDS (9.4-12.5) 02/27/19 07:00 INR 0.96 02/27/19 07:00 APTT 32.2 Seconds (26.9-38.3) 02/22/19 14:00 Attending/Attestation - Attestation I have personally seen and examined this patient.: Yes I have fully participated in the care of the patient.: Yes I have reviewed all pertinent clinical information, including history, physical exam and plan: Yes Notes (Text): Patient seen and examined by me with resident at approximately 8AM on 02/28/19. Case including HPI, physical exam, and assessment and plan discussed with resident. Agree with above with following additions/corrections. Patient is a 53-year-old female past medical history significant for hypertension, previous strokes, spondylolisthesis, anxiety, sleep disorder, hyperlipidemia, and opioid abuse presented to the emergency room with body weakness and difficulty getting out of bed for one day. Patient states that she feels ok. Complains of bilateral feet pain. Denies chest pain or shortness of breath. No dizziness. No headaches. No fevers or chills. No nausea, vomiting, or abdominal pain. No dysuria. Patient is having bowel movements. Physical exam: General: Awake and alert lying in bed in no acute distress HEENT: Normocephalic, atraumatic. Extraocular muscles intact. Pupils equal and reactive, no scleral icterus. Oropharynx is pink and moist. No pharyngeal erythema or exudate appreciated. Neck is supple. Cardiovascular: Normal rhythm. Normal S1 and S2. No murmurs, rubs, or gallops appreciated Pulmonary: Normal respiratory effort. No rhonchi, rales, or wheezing appreciated Gastrointestinal: Soft, nondistended. Nontender. Positive bowel sounds all 4 quadrants. No guarding. Musculoskeletal: Moves all extremities. No calf tenderness. No edema appreciated. Central nervous system: AAO x3 Dermatologic: Skin warm and dry. Assessment and plan: Patient is a 53-year-old female past medical history significant for hypertension, previous strokes, spondylolisthesis, anxiety, sleep disorder, hyperlipidemia, and opioid abuse presented to the emergency room with body weakness and difficulty getting out of bed for one day. 1. Hypertensive emergency. Hypertensive encephalopathy resolved. Blood pressure improving. Continue Norvasc. Continue HCTZ. Continue Cozaar. S/P cardene drip. Cardiology recommendations appreciated. 2-D echo per carpet repairer showed mild to moderate concentric left ventricular hypertrophy, left ventricular function is normal, left ventricular ejection fraction is within normal range, normal LV segmental wall motion, transmitral Doppler flow pattern is grade 1 abnormal relaxation pattern, there is mild subvalvular aortic stenosis, mitral regurgitation is trace to mild, mild tricuspid regurgitation, mild pulmonary hypertension. 2. Right sided weakness. ?from previous CVA. Has been seen moving all extremities and lying on back with no issues. Neurology recommendations appreciated. Continue physical therapy. Continue ASA. Lipitor on hold secondary to elevated LFTs. Brain MRI per radiologist showed an element of chronic microangiopathy throughout various subcortical and centrum semiovale white matter spaces as well as periventricular white matter, this is unlikely to account for prominent white matter signal changes at the bilateral frontal periventricular white matter including corpus callosum anteriorly; no mass effect, acute or subacute brain infarction; small chronic lacunar right thalamus infarct; prominent nasopharyngeal soft tissues [id number] enhancement. Per neurologist, changes or chronic and patient will need outpatient follow up. 2-D echo as above. Head CT 02/22/19 per radiologist showed left greater than right cerebellar hyperdense regions likely related to encephalomalacia, additional regions of moderate nonspecific white matter changes; 11 mm hyperdense focus noted within medial cerebellum of unclear etiology; 1.6 x 1.1 cm hyperdense fluid density structure noted within the anterior corporis possibly cyst; subtle inflammatory changes noted within the right is on adjacent soft tissues nonspecific. CT angiography of the brain per radiologist showed unremarkable CT angiography of the brain. CT angiography of the neck radiologist showed normal CT angiography of the neck. CTA chest and abdomen radiologist showed no evidence of aneurysm or dissection. 3. Right facial swelling, cellulitis of sidewall of nose. Appears resolved on exam. ENT recommendations appreciated. Per ENT, patient to complete 10 more days of Amoxicillin with outpatient follow-up. ENT aware of elevated LFTS and feels patient still needs antibiotic treatment. Continue bactroban intranasally TID. 4. Transaminitis. Fluctuating. GI recommendations appreciated. Abdominal ultrasound per radiologist showed no significant or acute findings. Abdominal duplex per radiologist showed patent portal vein hepatopetal flow. Per GI, no antibiotics. Will need outpatient repeat LFTS and possible liver biopsy if not improved. Continue to monitor. 5. Chronic back pain. Opioid dependence. ICU CLERK reviewed. On oxycodone from multiple doctors. Discussed with patient. Patient states she has been on the medication for 3 years. Continue PT. Patient counseled on drug abuse. 6. Anxiety. ?suicidal ideation. Patient no longer threatening suicide for opioids. Off of 1:1. Psychiatry recommendations appreciated. Xanax changed to ativan per psychiatrist secondary to elevated LFTS. 7. History of CVA with right sided weakness. Continue ASA. Lipitor on hold secondary to transaminitis. Continue PT. 8. Constipation. Resolved. Continue colace and miralax. 9. Tobacco abuse. Counseled on cessation. Continue nicotine patch. 10. GI/DVT prophylaxis. Protonix/Lovenox Case was discussed in detail with the patient regarding current diagnosis, study results, and treatment plan. All questions answered.
[2019-02-28] MEDS: oxyCODONE 10 mg Immediate Release Tab PO PRN ×2 (16:15→22:04)
[2019-02-28] MEDS ORDERED: Amoxicillin-Clav 875-125 mg Tab PO SCH (22:00)
[2019-02-28] MEDS: Amoxicillin 250 mg/5 ml Susp (150 ml) PO SCH ×2 (22:06→22:09)
[2019-03-01] MEDS: oxyCODONE 10 mg Immediate Release Tab PO PRN ×2 (05:23→10:58)
[2019-03-01] MEDS: Albuterol 0.083% Inhal Sol (2.5 mg/3 mL) UD INH SCH ×2 (07:30→13:33)
[2019-03-01 07:36] LABS: BASO # 0.05 K/mm3 (0.0-2.0); BASO % 0.4 % (0.0-3.0); EOS # 0.4 (0.0-0.7); EOS % 3.2 % (1.5-5.0); HEMOGLOBIN 14.4 g/dL (12.0-16.0); LYMPH # 3.7 (1.2-3.4); LYMPH % 33.6 % (22.0-35.0); MEAN CELL VOLUME 87.8 fl (80.0-105.0); MEAN CORPUSCULAR HEMOGLOBIN 27.9 pg (25.0-35.0); MEAN CORPUSCULAR HGB CONC 31.8 g/dl (31.0-37.0); MONO # 0.8 (0.1-0.6); RBC 5.16 10^6/uL (3.5-6.1); RED CELL DISTRIBUTION WIDTH 13.9 % (11.5-14.5); WHITE BLOOD COUNT 11.1 10^3/uL (4.5-11.0)
[2019-03-01 07:54] LABS: ALBUMIN 3.7 g/dL (3.0-4.8); ALT/SGPT 378 U/L (7-56); AST/SGOT 116 U/L (14-36); BLOOD UREA NITROGEN 22 mg/dL (7-21); CALCIUM 8.9 mg/dL (8.4-10.5); GFR NON-AFRICAN AMERICAN > 60
[2019-03-01] MEDS: Cholecalciferol 1,000 INTLU TAB PO SCH (09:31)
[2019-03-01] MEDS: Enoxaparin 40 mg Syringe SC SCH (09:31)
[2019-03-01] MEDS: POLYETHYLENE GLYCOL 3350 17 GM/Dose PACKET PO SCH (09:32)
[2019-03-01] MEDS: Amoxicillin 250 mg/5 ml Susp (150 ml) PO SCH (09:32)
[2019-03-01] MEDS: Pantoprazole 40 mg EC Tab PO SCH (09:33)
[2019-03-01] MEDS: Mupirocin 2% Ointment 15 GM TUBE TOP SCH (09:33)
--- NOTE | 2019-03-01 09:37 | CP.PCM.PN ---
Subjective - Date & Time of Evaluation Date of Evaluation: 03/01/19 Time of Evaluation: 08:00 - Subjective Subjective: PGY6 GI Fellow Progress Note Patient seen and examined bedside this morning. The patient states that she continues to have back pain. She refused oral antibiotic and topical antibiotic therapy last night. No events overnight. 12 system ROS performed and negative except where stated Objective - Vital Signs/Intake and Output Vital Signs (last 24 hours): Temp Pulse Resp BP Pulse Ox 97.7 F 64 20 151/90 H 96 03/01/19 06:00 03/01/19 06:00 03/01/19 06:00 03/01/19 06:00 03/01/19 06:00 Intake and Output: 03/01/19 03/01/19 06:59 18:59 Intake Total 600 Balance 600 - Medications Medications: Current Medications Albuterol Sulfate (Albuterol 0.083% Inhal Leyda (2.5 Mg/3 Ml) Ud) 2.5 mg INH TIDRESP [facility] Last Admin: 03/01/19 07:30 Dose: 2.5 mg Amlodipine Besylate (Norvasc) 10 mg PO DAILY [facility] Last Admin: 02/28/19 09:11 Dose: 10 mg Amoxicillin (Amoxil 250 Mg/5 Ml Susp) 875 mg PO Q12 [facility]; Protocol Last Admin: 02/28/19 22:09 Dose: Not Given Aspirin (Aspirin Chewable) 81 mg PO DAILY [facility] Last Admin: 02/28/19 09:12 Dose: 81 mg Atorvastatin Calcium (Lipitor) 40 mg PO HS [facility] Last Admin: 02/22/19 21:01 Dose: 40 mg Cholecalciferol (Vitamin D) 2,000 intlu PO DAILY [facility] Last Admin: 02/28/19 09:12 Dose: 2,000 intlu Docusate Sodium (Colace) 100 mg PO BID [facility] Last Admin: 02/28/19 18:09 Dose: Not Given Enoxaparin Sodium (Lovenox) 40 mg SC DAILY [facility]; Protocol Last Admin: 02/28/19 09:11 Dose: 40 mg Ergocalciferol (Drisdol 50,000 Intl Units Cap) 1 cap PO Q7D [facility] Last Admin: 02/23/19 16:07 Dose: 1 cap Hydrochlorothiazide (Hydrodiuril) 25 mg PO DAILY [facility] Last Admin: 02/28/19 09:13 Dose: 25 mg Lorazepam (Ativan) 1 mg PO BID [facility]; Protocol Last Admin: 02/28/19 18:12 Dose: 1 mg Losartan Potassium (Cozaar) 100 mg PO DAILY [facility] Last Admin: 02/28/19 09:12 Dose: 100 mg Mupirocin (Bactroban Ointment) 0 gm TOP TID [facility] Last Admin: 02/28/19 18:09 Dose: Not Given Nicotine (Nicoderm Cq) 1 patch TD DAILY [facility] Last Admin: 02/28/19 09:13 Dose: 1 patch Oxycodone HCl (Oxycodone Immediate Release Tab) 10 mg PO Q6H PRN PRN Reason: Pain, severe (8-10) Last Admin: 03/01/19 05:23 Dose: 10 mg Pantoprazole Sodium (Protonix Ec Tab) 40 mg PO ACB [facility] Last Admin: 02/28/19 08:46 Dose: 40 mg Polyethylene Glycol (Miralax) 17 gm PO BID [facility] Last Admin: 02/28/19 18:09 Dose: Not Given Sodium Chloride ([place] Nasal [place]) 1 ml NS Q6H PRN PRN Reason: Nasal congestion Last Admin: 02/25/19 09:45 Dose: 1 spr - Labs Labs: 03/01/19 07:15 03/01/19 07:15 PT 10.9 SECONDS (9.4-12.5) 02/27/19 07:00 INR 0.96 02/27/19 07:00 APTT 32.2 Seconds (26.9-38.3) 02/22/19 14:00 - Constitutional Appears: Non-toxic, No Acute Distress - Eye Exam Eye Exam: EOMI, PERRL - ENT Exam ENT Exam: Mucous Membranes Moist - Respiratory Exam Respiratory Exam: Clear to Ausculation Bilateral. absent: Rales, Rhonchi, Wheezes - Cardiovascular Exam Cardiovascular Exam: RRR, +S1, +S2 - GI/Abdominal Exam GI & Abdominal Exam: Soft, Normal Bowel Sounds. absent: Distended, Firm, Guarding, Rigid, Tenderness, Organomegaly - Extremities Exam Extremities Exam: Normal Inspection. absent: Pedal Edema - Neurological Exam Neurological Exam: Alert, Awake, Oriented x3 - Psychiatric Exam Psychiatric exam: Normal Affect, Normal Mood - Skin Skin Exam: Dry, Warm Assessment and Plan - Assessment and Plan (Free Text) Assessment: Patient is a 53yo female with PMHx significant for chronic back pain with opiate dependence and abuse, prior CVA x3, HTN who presented to the hospital for g eneralized malaise and weakness -Abnormal LFTs - hepatocellular pattern, suspect DILI -Hypertensive urgency, emergency improved -Right nasal lesion - ? cellulitis -H/O CVA -Opiate dependence Plan: -LFTs downtrending following discontinuation of Gentamycin; pt refused oral a ntibiotics last night -OK for patient to have topical therapy with Bactroban -Continue to trend LFTs - will need repeat 1 week after D/C along with PT/INR -ENT recommendations noted; risk/benefits explained to patient - Our service cannot recommend ongoing oral antibiotic therapy in setting of significant DILI -Autoimmune markers are negative (KEELY, AMA, SMA) -If persistent elevation without improvement moving forward, will require liver biopsy -EtOH avoidance stressed -Will need outpt follow up for ? nasal lesion/mass noted on CT/MRI -Age appropriate colon cancer screening should be offered to the patient as an outpatient
[2019-03-01 15:17] VITALS: BP 143/83; PULSE 71; TEMP 97.9; O2SAT 97
--- NOTE | 2019-03-01 16:43 | PN ---
DATE: 03/01/2019 SUBJECTIVE: The patient was seen by psychiatric team for anxiety as well as medication management. Please see previous note for more detailed information. Dr. Alcazar, primary physician, gave this service writer a call and reported that the patient's liver enzymes are going up and impression is most likely it is due to Xanax what the patient was taking. This service writer suggested to change Xanax dose to Ativan because it will pass the liver, discussed to increase the dose to 2 mg 3 times a day and medical team requested this service writer follow up. The patient was seen and examined today. The patient presented to be tearful. The patient was fixated on pain medication. The patient reported that she feels very anxious. This service writer educated rationale behind medical team decision about changing Xanax to Ativan. This service writer explained the patient risks, benefits and alternatives of that medication. Stat dose of Ativan was given 2 mg and this service writer would suggest 2 mg 3 times a day as well as at the nighttime as needed for agitation, anxiety and insomnia. The patient verbalized understanding. The reason why this service writer choose 2 mg 4 times a day because equivalent of Xanax is Ativan 1 to 2. Considering the fact that the patient was on Xanax 2 mg 2 times a day, it will be equivalent to 8 mg of Ativan daily, but this service writer would suggest 2 mg of Ativan 3 times a day and at the nighttime as needed only. PHYSICAL EXAMINATION: VITAL SIGNS: Reviewed. MEDICATIONS: Reviewed. Norvasc, amoxicillin, aspirin, Lipitor, vitamin D, Colace, Lovenox, Drisdol, Ativan, Bactroban, Nicoderm, oxycodone, MiraLax, and [place] nasal spray. LABORATORY DATA: Labs reviewed. Chemistry reviewed. Immunology reviewed. Serology reviewed. MENTAL STATUS EXAMINATION: The patient appears to be tearful, complained that she is in pain. Mood described as anxious. Affect was tearful. Thought process seems to be concrete. Thought content, the patient denied visual, auditory tactile hallucinations. Denied paranoid ideation. The patient denied thoughts of harming herself or others, denied intent or plan. Insight and judgment seems to be limited due to possible addiction to pain killers. Impulses are better controlled. IMPRESSION: Self-reported history of depression and anxiety, most likely the patient also addicted to pain medication and benzodiazepines. Emergency room did not do urine drug screen at the time of admission. PLAN: We will suggest Ativan 2 mg 3 times a day in order to avoid any withdrawal symptoms and help the patient with anxiety, also 2 mg at the nighttime as needed for restlessness, agitation, and possible insomnia. Pain medication is up to the medical team. The patient posed no imminent danger to self or others. Stat dose of Ativan given. The patient needs to be seen by psychiatrist at [facility] and medications need to be adjusted. If the patient will be transferred to [facility], the patient is to be seen by psychiatrist within 48 hours. If the patient will stay over the weekend, will follow up on her. Should you have any questions, give me a call back. Thank you so much. Yeimy Alba MD [email or web address]
--- NOTE | 2019-03-01 17:06 | CP.PCM.DIS ---
Provider - Provider Date of Admission: 02/22/19 16:51 Attending physician: Vidhya Alcazar DO Primary care physician: ROBERT FAMILY PROVIDER Consults: 02/22/19 14:18 Stroke Team Consult Stat Comment: Consulting Provider: Neurohospitalist Consulting Physician: NEUROHOSP Neurohospitalist for Consult: Rufus Marks Neurohospitalist for Consult: Nguyen,Gautami Reason for Consult: right sided weakness 02/22/19 17:15 Cardiology Consult Routine Comment: Consulting Provider: Vikki Gunter Consulting Physician: Vikki Gunter Reason for Consult: R-sided weakness, recent CVA 02/22/19 18:54 ENT [Otolaryngology Consult] Routine Consulting Provider: Shukri Rogers Consulting Physician: Shukri Rogers Reason for Consult: swelling of right nare 02/23/19 08:43 Frit Coater [Case Management Referral] Routine Comment: Physician Instructions: Reason For Exam: SW eval for d/c planning Reason for Referral: Discharge Planning 02/24/19 10:17 Psychiatry Consult Routine Comment: Consulting Provider: Mabel Costello Consulting Physician: Mabel Costello Reason for Consult: suicide risk 02/26/19 12:06 Gastroenterology Consult Routine Comment: Consulting Provider: Kathryn De Oliveira Consulting Physician: Kathryn De Oliveira Reason for Consult: elevated LFTs 02/28/19 22:33 Consult [Physician Consult] Routine Comment: Pain Management Consult Consulting Provider: Yunier Carranza Consulting Physician: Yunier Carranza Reason for Consult: Pain Management Additional Comments: Time Spent in preparation of Discharge (in minutes): 45 Diagnosis - Discharge Diagnosis (1) Opioid dependence Status: Chronic (2) Malignant hypertension Status: Resolved (3) Right sided weakness Status: Chronic Hospital Course - Lab Results Lab Results: Micro Results 02/22/19 15:00 Blood Blood Culture - Final NO GROWTH AFTER 5 DAYS 02/22/19 15:00 Blood Gram Stain - Final TEST NOT PERFORMED 02/22/19 14:45 Blood Blood Culture - Final NO GROWTH AFTER 5 DAYS 02/22/19 14:45 Blood Gram Stain - Final TEST NOT PERFORMED 02/22/19 19:00 Naris MRSA Culture (Admit) - Final MRSA NOT DETECTED 02/22/19 16:57 Urine Random Urine Culture - Final No Growth (<1,000 CFU/ML) Most Recent Lab Values WBC 11.1 10^3/uL (4.5-11.0) H D 03/01/19 07:15 RBC 5.16 10^6/uL (3.5-6.1) 03/01/19 07:15 Hgb 14.4 g/dL (12.0-16.0) 03/01/19 07:15 Hct 45.3 % (36.0-48.0) 03/01/19 07:15 MCV 87.8 fl (80.0-105.0) 03/01/19 07:15 MCH 27.9 pg (25.0-35.0) 03/01/19 07:15 MCHC 31.8 g/dl (31.0-37.0) 03/01/19 07:15 RDW 13.9 % (11.5-14.5) 03/01/19 07:15 Plt Count 186 10^3/uL (120.0-450.0) 03/01/19 07:15 MPV fl (7.0-11.0) 03/01/19 07:15 Neut % (Auto) 55.8 % (50.0-68.0) 03/01/19 07:15 Lymph % (Auto) 33.6 % (22.0-35.0) 03/01/19 07:15 [place] % (Auto) 7.0 % (1.0-6.0) H 03/01/19 07:15 Eos % (Auto) 3.2 % (1.5-5.0) 03/01/19 07:15 Baso % (Auto) 0.4 % (0.0-3.0) 03/01/19 07:15 Lymph # (Auto) 3.7 (1.2-3.4) H 03/01/19 07:15 [place] # (Auto) 0.8 (0.1-0.6) H 03/01/19 07:15 Eos # (Auto) 0.4 (0.0-0.7) 03/01/19 07:15 Baso # (Auto) 0.05 K/mm3 (0.0-2.0) 03/01/19 07:15 Absolute Neuts (auto) 6.19 (1.4-6.5) 03/01/19 07:15 PT 10.9 SECONDS (9.4-12.5) 02/27/19 07:00 INR 0.96 02/27/19 07:00 APTT 32.2 Seconds (26.9-38.3) 02/22/19 14:00 Sodium 138 mmol/L (132-148) 03/01/19 07:15 Potassium 4.1 mmol/L (3.6-5.0) 03/01/19 07:15 Chloride 98 mmol/L (98-107) 03/01/19 07:15 Carbon Dioxide 34 mmol/L (21-33) H 03/01/19 07:15 Anion Gap 11 (10-20) 03/01/19 07:15 BUN 22 mg/dL (7-21) H 03/01/19 07:15 Creatinine 0.9 mg/dl (0.7-1.2) 03/01/19 07:15 Est GFR ( Amer) > 60 03/01/19 07:15 Est GFR (Non-Af Amer) > 60 03/01/19 07:15 POC Glucose (mg/dL) 147 mg/dL (65-110) H 02/23/19 11:14 Random Glucose 101 mg/dL (70-110) 03/01/19 07:15 Hemoglobin A1c 5.8 % (4.2-6.5) 02/22/19 14:00 Calcium 8.9 mg/dL (8.4-10.5) 03/01/19 07:15 Phosphorus 4.5 mg/dL (2.5-4.5) 02/23/19 05:00 Magnesium 2.1 mg/dL (1.7-2.2) 02/23/19 05:00 Total Bilirubin 0.3 mg/dL (0.2-1.3) 03/01/19 07:15 AST 116 U/L (14-36) H D 03/01/19 07:15 ALT 378 U/L (7-56) H 03/01/19 07:15 Alkaline Phosphatase 141 U/L (38-126) H 03/01/19 07:15 Lactate Dehydrogenase 490 U/L (333-699) 02/22/19 14:00 Total Creatine Kinase 110 U/L (35-230) 02/22/19 14:00 Troponin I < 0.01 ng/mL 02/22/19 14:00 Total Protein 7.4 g/dL (5.8-8.3) 03/01/19 07:15 Albumin 3.7 g/dL (3.0-4.8) 03/01/19 07:15 Globulin 3.7 gm/dL 03/01/19 07:15 Albumin/Globulin Ratio 1.0 (1.1-1.8) L 03/01/19 07:15 Triglycerides 43 mg/dL (35-160) 02/23/19 05:00 Cholesterol 154 mg/dL (130-200) 02/23/19 05:00 LDL Cholesterol Direct 86 mg/dL (0-129) 02/23/19 05:00 HDL Cholesterol 44 mg/dL (29-60) 02/23/19 05:00 Vitamin B12 843 pg/mL (239-931) 02/23/19 05:00 25-OH Vitamin D Total 16.8 NG/ML (30.0-100.0) L 02/23/19 05:00 Folate 15.4 ng/mL 02/23/19 05:00 TSH 3rd Generation 1.18 mIU/mL (0.46-4.68) 02/23/19 05:00 Urine Color Yellow (YELLOW) 02/22/19 16:57 Urine Appearance Clear (CLEAR) 02/22/19 16:57 Urine pH 6.5 (4.7-8.0) 02/22/19 16:57 Ur Specific [place] 1.010 (1.005-1.035) 02/22/19 16:57 Urine Protein Negative mg/dL (<30 mg/dL) 02/22/19 16:57 Urine Glucose (UA) Negative mg/dL (NEGATIVE) 02/22/19 16:57 Urine Ketones Negative mg/dL (NEGATIVE) 02/22/19 16:57 Urine Blood Negative (NEGATIVE) 02/22/19 16:57 Urine Nitrate Negative (NEGATIVE) 02/22/19 16:57 Urine Bilirubin Negative (NEGATIVE) 02/22/19 16:57 Urine Urobilinogen 1.0 E.U./dL (<1 E.U./dL) H 02/22/19 16:57 Ur Leukocyte Esterase Negative Lillian/uL (NEGATIVE) 02/22/19 16:57 IgG 1532.5 mg/dL (700.0-1600.0) 02/27/19 07:00 KEELY Screen Negative (Negative) 02/27/19 07:00 Anti-Mitochondrial Ab Negative (Negative) 02/27/19 07:00 Smooth Muscle Ab Titer TEST NOT PERFORMED 02/27/19 07:00 Anti-Smooth Muscle Ab Negative (Negative) 02/27/19 07:00 Hepatitis A IgM Ab Negative (NEGATIVE) 02/23/19 08:40 Hep Bs Antigen Negative (NEGATIVE) 02/23/19 08:40 Hep B Core IgM Ab Negative (NEGATIVE) 02/23/19 08:40 Hepatitis C Antibody Negative (NEGATIVE) 02/23/19 08:40 Blood Type B POSITIVE 02/22/19 15:00 Blood Type Confirm B POSITIVE 02/22/19 15:00 Antibody Screen Negative 02/22/19 15:00 BBK History Checked No verified bt 02/22/19 15:00 - Hospital Course Hospital Course: Paresh Ervin DO, PGY-1 Hospitalist Discharge Summary for Dr. Haven Alcazar Prior to admission: Patient is a 53 year old female with PMH of poorly controlled HTN, prior CVA x 3 with residual RUE and RLE weakness admitted for worsened weakness and elevated SBP > 200 and DBP > 120. Code stroke was called in ED. CT head was positive for new cerebellar findings and patient was initially admitted to MICU for aggressive BP management on cardene drip. Hospitalization course: Patient's HTN improved quickly on cardene drip and she was subsequently transitioned to PO agents. She was subsequently transferred out of MICU. Patient continued to have aggression and exhibited opioid seeking behavior. She was seen outside room prior to examination moving all extremities and in no apparent distress but complained of extensive R sided weakness and pain during examination. She had an episode concerning for suicidal ideation and was subsequently evaluated by psychiatry who increased her xanax dose and eventually discontinued 1:1 observation. Her BP continued to be managed throughout her stay on norvasc, HCTZ, and cozaar. She was also noted to have persistent transaminitis which improved initially but then worsened, prompting GI consult. AI and hepatitis w/u was negative, abd US and abd duplex US were negative. Patient persistently refused MRI brain and was only convinced to take the test with 1 x dose of morphine and xanax administration prior. MRI brain was completed and findings concerning for possible myasthenia were noted. Case was discussed with neurology who state that these findings could be managed on outpatient basis and agreed patient is stable for discharge. She was followed by ENT for concern of R nasal swelling and additional findings on MRI. Case was discussed with ENT who stated that patient should be continued on amoxicillin for 10 days despite transaminitis. Patient was instructed to take amoxicillin at [facility] with instructions to monitor patient's LFTs. Patient continuously requested more pain medication throughout her stay. Patient was discussed with patient's prior physician, Dr. Hill, who stated patient had been terminated from their practice as she had positive UDS. Case was discussed with psychiatry who believe patient was going through xanax withdrawal and recommended continuing patient on ativan 2 mg TID. Patient was accepted by [facility]. Case was discussed with all consultants who agree patient is stable for discharge to [facility]. Outpatient f/u instructions were given as below. Discharge plan was discussed with patient. All questions were answere d. Patient seen, examined, and discharge plan discussed with my attending Dr. Haven Ervin D.O. IM Resident PGY-1 Discharge Exam - Head Exam Head Exam: ATRAUMATIC, NORMOCEPHALIC - Eye Exam Eye Exam: EOMI, Normal appearance, PERRL - ENT Exam ENT Exam: Mucous Membranes Moist - Neck Exam Neck exam: Full Rom, Normal Inspection - Respiratory Exam Respiratory Exam: Clear to PA & Lateral, NORMAL BREATHING PATTERN, UNREMARKABLE. absent: Accessory Muscle Use, Rales, Rhonchi, Wheezes, Respiratory Distress - Cardiovascular Exam Cardiovascular Exam: REGULAR RHYTHM, RRR, +S1, +S2. absent: Diastolic murmur, Gallop, Rubs, Systolic Murmur - GI/Abdominal Exam GI & Abdominal Exam: Normal Bowel Sounds, Soft, Unremarkable. absent: Tenderness - Extremities Exam Extremities exam: full ROM, normal inspection - Back Exam Back exam: NORMAL INSPECTION - Neurological Exam Neurological exam: Alert, Oriented x3 Additional comments: No obvious sensory deficits, patient now moving all extremities spontaneously despite prior complaint of R sided weakness and pain - Psychiatric Exam Psychiatric exam: Anxious - Skin Skin Exam: Dry, Intact, Warm Discharge Plan - Discharge Medications Prescriptions: Amoxicillin [Amoxil 500 mg Cap] 500 mg PO BID #18 cap LORazepam [Ativan] 2 mg PO TID PRN 3 Days tab PRN Reason: Anxiety - Follow Up Plan Condition: CRITICAL Disposition: TRANSF TO SNF Instructions: Stroke, Heart Healthy Diet, High Blood Pressure (DC), Quitting Smoking, Cellulitis (DC), Hypertension (DC), Hypertension (GEN) Additional Instructions: FEMI instructions: Please give these new medicines for patient's blood pressure: Norvasc 10 mg daily Hydrochlorothiazide 25 mg daily Cozaar 100 mg daily Hold parameters for BP medications are hold for SBP < 100 Please also continue patient on: Aspirin 81 mg daily Lipitor 40 mg nightly Nicotine patch as needed Please give vitamin D 50,000 units weekly starting tomorrow, March 02, 2019. Please continue to apply bactroban ointment intra-nasally three times a day. Please give patient amoxicillin 500 mg twice a day for 9 days as ordered, last dose on 03/09/19. If patient agrees to taking amoxicillin, please monitor CMP every other day as patient's liver enzymes were elevated while in the hospital. Last AST/ALT were 378/141, please re-evaluate need for antibiotic if LFTs are up trending. Patient was started ativan 2 mg three times a day as needed by psychiatrist here. Patient will need to be seen by psychiatrist at the facility for continued need of medication. Medication may need to be decreased or stopped if LFTs are increasing. Patient instructions: Please follow up with your primary medical doctor within 3-5 days of discharge. Please check your liver numbers in 1 week post discharge from rehab as recommended by stomach doctor. These orders have been placed in your chart. Please follow up with the neurologist, Dr. Nguyen, within 1 week of discharge. Her contact information has been included in your paperwork. Please follow up with the stomach doctor, Dr. De Oliveira, within 1 week of discharge. Her contact information has been included in your paperwork. Please follow up with the ear, nose, throat doctor, Dr. Whelan, within 1 week of discharge. His contact information has been included in your paperwork. Please follow up with pain management for chronic back pain upon discharge from subacute rehab. If any of your symptoms return or you experience new concerning symptoms, please return to nearest emergency department. Referrals: Kathryn De Oliveira MD [Staff Provider] - 2 Week (elevated LFTs) Constantino Whelan DO [Staff Provider] - FAMILY PROVIDER,NO [Primary Care Provider] - Patricia Nguyen MD [Staff Provider] -
== END 2019-03-01 16:10 | DRG 134 ==
LOC: ED 13:36 → ERH 16:51 → ICU 18:29 → 2RNO 02-25 23:09 → 5RSO 02-26 16:53
PROVIDERS: ADMIT Internal Medicine; ATTEND Hospitalist
DX: I16.1 Hypertensive emergency (principal); I67.4 Hypertensive encephalopathy; F11.20 Opioid dependence, uncomplicated; D69.6 Thrombocytopenia, unspecified; F20.9 Schizophrenia, unspecified; I08.3 Combined rheumatic disorders of mitral, aortic and tricuspid valves; L03.211 Cellulitis of face; I10 Essential (primary) hypertension; F17.200 Nicotine dependence, unspecified, uncomplicated; F41.0 Panic disorder [episodic paroxysmal anxiety]; E78.5 Hyperlipidemia, unspecified; I27.20 Pulmonary hypertension, unspecified; K59.00 Constipation, unspecified; G89.29 Other chronic pain; M54.5 Low back pain; M43.10 Spondylolisthesis, site unspecified; J34.2 Deviated nasal septum; G93.89 Other specified disorders of brain; E66.9 Obesity, unspecified; Z68.35 Body mass index [BMI] 35.0-35.9, adult; I69.351 Hemiplegia and hemiparesis following cerebral infarction affecting right dominant side; Z76.5 Malingerer [conscious simulation]; Z79.82 Long term (current) use of aspirin; Z91.14 Patient's other noncompliance with medication regimen; Z82.5 Family history of asthma and other chronic lower respiratory diseases; Z82.3 Family history of stroke